=== PATIENT | male | born 1930 | race Caucasian/White ===

== ENCOUNTER → 2018-10-03 | Outpatient (CLI) | payer MEDICARE ==
[~2018-10-03] MED LIST: AMLO5TAB2 PO; ASP81TEC PO; CLOP75TA PO
--- NOTE | 2018-10-03 16:32 | Diagnostic Imaging Report ---
INDICATION: Non-Hodgkin's lymphoma. TECHNIQUE: Serum blood glucose level at time of injection was 96 mg/dL. Patient was administered 13.4 mCi F-18 FDG intravenously in the right antecubital location and PET imaging was performed from the top of the skull and mid thighs. Noncontrast CT was also performed for attenuation correction and anatomic correlation. COMPARISON: Patient's prior PET scan is not available for comparison. FINDINGS: There is symmetric activity throughout the brain. Soft tissues of the neck are unremarkable. Mild uptake in the right hilum is seen with SUV max of approximately 4.6. Minimal uptake in the region of the AP window is also noted with SUV max of approximately 3.1. No pulmonary parenchymal hypermetabolism is seen. There appears to be small bilateral pleural effusions with some atelectasis in both bases. Imaging through the abdomen does show a normal physiologic activity in the GI and tracts. No hypermetabolic abdominal or pelvic lymphadenopathy is seen. IMPRESSION: There is mild uptake in the mediastinum and right hilum, indeterminate. This is fairly low level. Continued followup is recommended. No other regions of hypermetabolism are identified. Dictated by: Dictated on workstation # [id number]
== END ==
LOC: RAD 09:21
PROVIDERS: ATTEND Internal Medicine Hematology & Oncology
DX: C83.38 Diffuse large B-cell lymphoma, lymph nodes of multiple sites (principal)

== ENCOUNTER → 2018-10-30 | Outpatient (CLI) | payer MEDICARE ==
[2018-10-30 10:44] LABS: HEMATOCRIT 36 % (40-54); HEMOGLOBIN 11.7 G/DL (13.3-17.7); MEAN CORPUSCULAR HEMOGLOBIN 36 PG (25-34); MEAN CORPUSCULAR VOLUME 108 FL (80-99); WHITE BLOOD COUNT 6.5 10^3/uL (4.3-11.0)
[2018-10-30 10:45] LABS: MEAN CORPUSCULAR HGB CONC 33 G/DL (32-36); MEAN PLATELET VOLUME 10.9 FL (7.4-10.4); NEUTROPHILS % (AUTO) 82 % (42-75); PLATELET COUNT 104 10^3/uL (130-400); RED CELL DISTRIBUTION WIDTH 15.3 % (10.0-14.5)
[2018-10-30 10:46] LABS: BASOPHILS % (AUTO) 1 % (0-10); EOSINOPHILS # (AUTO) 0.2 10^3/uL (0.0-0.3); EOSINOPHILS % (AUTO) 3 % (0-10); LYMPHOCYTES # (AUTO) 0.3 X 10^3 (1.0-4.0); LYMPHOCYTES % (AUTO) 5 % (12-44); MONOCYTES # (AUTO) 0.6 X 10^3 (0.0-1.0); MONOCYTES % (AUTO) 9 % (0-12); NEUTROPHILS # (AUTO) 5.4 X 10^3 (1.8-7.8)
[2018-10-30 11:30] LABS: BAND NEUTROPHILS 3 %; BASOPHILS % (MANUAL) 0 %; EOSINOPHILS % (MANUAL) 0 %; LYMPHOCYTES % (MANUAL) 2 %; MONOCYTES % (MANUAL) 11 %; NEUTROPHILS % (MANUAL) 84 %
[2018-10-30 11:31] LABS: ANISOCYTOSIS SLIGHT; ELLIPT/OVALOCYTES SLIGHT; POIKILOCYTOSIS SLIGHT
== END ==
LOC: LAB 08:41
PROVIDERS: ATTEND Internal Medicine Hematology & Oncology
DX: D64.81 Anemia due to antineoplastic chemotherapy (principal)
CPT/HCPCS: 36415; 85007; 85027

== ENCOUNTER → 2018-11-06 | Outpatient (CLI) | payer MEDICARE ==
[2018-11-06 09:11] LABS: HEMATOCRIT 35 % (40-54); HEMOGLOBIN 11.5 G/DL (13.3-17.7); LYMPHOCYTES % (AUTO) 13 % (12-44); MEAN CORPUSCULAR HEMOGLOBIN 36 PG (25-34); MEAN CORPUSCULAR HGB CONC 33 G/DL (32-36); MEAN CORPUSCULAR VOLUME 108 FL (80-99); MEAN PLATELET VOLUME 9.5 FL (7.4-10.4); NEUTROPHILS % (AUTO) 39 % (42-75); PLATELET COUNT 112 10^3/uL (130-400); RED CELL DISTRIBUTION WIDTH 15.1 % (10.0-14.5); WHITE BLOOD COUNT 2.7 10^3/uL (4.3-11.0)
[2018-11-06 09:12] LABS: BASOPHILS % (AUTO) 2 % (0-10); EOSINOPHILS # (AUTO) 0.5 10^3/uL (0.0-0.3); EOSINOPHILS % (AUTO) 20 % (0-10); LYMPHOCYTES # (AUTO) 0.4 X 10^3 (1.0-4.0); MONOCYTES # (AUTO) 0.7 X 10^3 (0.0-1.0); MONOCYTES % (AUTO) 26 % (0-12)
== END ==
LOC: LAB FS 08:30
PROVIDERS: ATTEND Internal Medicine Hematology & Oncology
DX: D64.81 Anemia due to antineoplastic chemotherapy (principal)
CPT/HCPCS: 36415; 85025

== ENCOUNTER 2018-11-13 11:59 | Outpatient (RCR) | payer MEDICARE ==
[2018-11-13 12:21] LABS: HEMATOCRIT 37 % (40-54); HEMOGLOBIN 12.3 G/DL (13.3-17.7); MEAN CORPUSCULAR HEMOGLOBIN 35 PG (25-34); MEAN CORPUSCULAR HGB CONC 33 G/DL (32-36); MEAN CORPUSCULAR VOLUME 107 FL (80-99); RED CELL DISTRIBUTION WIDTH 15.1 % (10.0-14.5); WHITE BLOOD COUNT 2.2 10^3/uL (4.3-11.0)
[2018-11-13 12:22] LABS: BASOPHILS % (AUTO) 1 % (0-10); EOSINOPHILS # (AUTO) 0.4 10^3/uL (0.0-0.3); EOSINOPHILS % (AUTO) 16 % (0-10); LYMPHOCYTES # (AUTO) 0.6 X 10^3 (1.0-4.0); LYMPHOCYTES % (AUTO) 27 % (12-44); MEAN PLATELET VOLUME 9.5 FL (7.4-10.4); MONOCYTES # (AUTO) 0.7 X 10^3 (0.0-1.0); MONOCYTES % (AUTO) 32 % (0-12); NEUTROPHILS # (AUTO) 0.5 X 10^3 (1.8-7.8); NEUTROPHILS % (AUTO) 23 % (42-75); PLATELET COUNT 137 10^3/uL (130-400)
== END 2019-02-11 | disposition home or self-care (01) ==
LOC: LAB FS 11:59
PROVIDERS: ATTEND Internal Medicine Hematology & Oncology
DX: D64.81 Anemia due to antineoplastic chemotherapy (principal)
CPT/HCPCS: 36415; 85025

== ENCOUNTER 2018-11-27 08:55 | Emergency (ER) | payer MEDICARE ==
[~2018-11-27] VITALS: Ht 177.8 cm; Wt 77.1 kg
--- OUTSIDE RECORDS SUMMARY | 2018-11-27 09:02 | XMS REPORT | Encounter Summary ---
Author Author [facility] Organization [facility] Address Unknown Phone Unavailable Care Team Providers Care Fuel Manager Name Role Phone Gamaliel Almanzar MD PCP Reason for Referral * MRI/CAT/PET Scan (Routine) Status Reason Specialty Diagnoses / Referred By Referred To Procedures Contact Contact Closed Diagnoses ZarcoAbiodun lam, Subdural PA-C hematoma, acute [address], (HCC) [address] [place], [place] rocedures [address] CT Head wo Phone: contrast [phone] Reason for Visit * MRI/CAT/PET Scan (Routine) Status Reason Specialty Diagnoses / Referred By Referred To Procedures Contact Contact Closed Diagnoses ZarcoAbiodun lam, Subdural PA-C hematoma, acute [address], (HCC) [address] [place], [place] rocedures [address] CT Head wo Phone: contrast [phone] Encounter Details Date Type Department Care Team Description 09/15/2018 [facility] [place] [facility] ZarcoAbiodun lam, PA-C Subdural hematoma, acute [facility]oint[facility], [facility] [address], [address] (HCC) [address] [place] [address] [address] [place] [address] [phone] Social History Tobacco Use Types Packs/Day Years Used Date Never Smoker Smokeless Tobacco: Never Used Alcohol Use Drinks/Week oz/Week Comments No Sex Assigned at Date Recorded Not on file as of this encounter Plan of Treatment Not on fileas of this encounter Procedures Procedure Name Priority Date/Time Associated Diagnosis Comments CT HEAD WO CONTRAST Routine 09/15/2018 Subdural hematoma, acute Results for this 12:23 PM RIBBON CLEANER (HCC) procedure are in the results section. 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 No new hemorrhage. Mild/moderate generalized volume loss. Mild chronic small vessel ischemic disease. READING SITE: [facility]. ATTESTATION STATEMENT: The Staff Radiologist has personally reviewed the images and dictated, reviewed, or edited the final report. Narrative Performed At Patient: COLBY MACIAS Sex#:M # 1930 [place]#:[id number] Location:[facility] CT Procedure Requested:[id number] CT HEAD WO CONTRAST Reason for Exam:Subdural hematoma, acute (HCC) Exam Ordered: Exam Date/Time: Begin exam date/time: CT HEAD WO CONTRAST Date: 09/15/2018 12:23 PM Clinical Indication: Subdural hematoma, acute (HCC) . Subsequent encounter. Comparison: August 16, 2018. Technique:5 mm axial tomographic images were obtained of the head without contrast. These were viewed on brain and bone windows. 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 No new hemorrhage. The ramírez-white matter junction is normal. Mild nonspecific periventricular hypoattenuation, most commonly seen with chronic small vessel ischemic disease. Calcified atherosclerosis of the bilateral cavernous and paraclinoid internal carotid arteries and intracranial vertebral arteries. Mild/moderate generalized volume loss in concordance with symmetrical prominence of the ventricles and sulci. The subarachnoid cisterns are patent. The visualized paranasal sinuses are clear. Right zachariah bullosa. The visualized portions of the orbits and globes are normal. The mastoid air cells are clear. The toll service observer topogram shows no lytic lesion or fracture. Procedure Note Interface, Rad Results In - 09/15/2018 4:04 PM RIBBON CLEANER Patient: KAYLEE MACIAS Sex#: M # 1930 [place]#: [id number] Location: [facility] CT Procedure Requested: [id number] CT HEAD WO CONTRAST Reason for Exam: Subdural hematoma, acute (HCC) Exam Ordered: 09/15/2018 1158 Exam Date/Time: 09/15/2018 1223 Begin exam date/time: 09/15/[address] HEAD WO CONTRAST Date: 09/15/2018 12:23 PM Clinical Indication: Subdural hematoma, acute (HCC) . Subsequent encounter. Comparison: August 16, 2018. Technique: 5 mm axial tomographic images were obtained of the head without contrast. These were viewed on brain and bone windows. 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 No new hemorrhage. The ramírez-white matter junction is normal. Mild nonspecific periventricular hypoattenuation, most commonly seen with chronic small vessel ischemic disease. Calcified atherosclerosis of the bilateral cavernous and paraclinoid internal carotid arteries and intracranial vertebral arteries. Mild/moderate generalized volume loss in concordance with symmetrical prominence of the ventricles and sulci. The subarachnoid cisterns are patent. The visualized paranasal sinuses are clear. Right zachariah bullosa. The visualized portions of the orbits and globes are normal. The mastoid air cells are clear. The toll service observer topogram shows no lytic lesion or fracture. 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 No new hemorrhage. Mild/moderate generalized volume loss. Mild chronic small vessel ischemic disease. READING SITE: [facility]. ATTESTATION STATEMENT: The Staff Radiologist has personally reviewed the images and dictated, reviewed, or edited the final report. Performing Organization Address City/State/Zipcode Phone Number [email or web address] in this encounter Visit Diagnoses Diagnosis Subdural hematoma, acute (HCC)
--- OUTSIDE RECORDS SUMMARY | 2018-11-27 09:02 | XMS REPORT | Clinical Summary ---
Author Author [facility] Organization [facility] Address Unknown Phone Unavailable Care Team Providers Care Wellness Trainer Name Role Phone Gamaliel Almanzar MD PCP Allergies Active Allergy Reactions Severity Noted Date Comments Doxycycline Hives Medium 07/08/2015 Habdzyx-Pgv-Mls Reductase Myalgia Medium 07/08/2015 Inhibitors Current Medications Prescription Sig. Disp. Refills Start End Date Status Date polycarbophil (FIBERCON) Take one daily 30 0 05/16/20 Active 625 mg tablet 12 multivitamin (MULTIPLE take 1 tablet by oral 30 0 05/16/20 Active VITAMINS) per tablet route every day with 12 food acetaminophen (TYLENOL) Take 2 tablets (650 mg 08/22/20 Active 325 MG tablet total) by mouth every 4 18 (four) hours as needed. acyclovir (ZOVIRAX) 400 Take 1 tablet (400 mg 08/22/20 Active MG tabletIndications: total) by mouth 2 (two) 18 CHRONIC SUPPRESSIVE times a day. TREATMENT OR PROPHYLAXIS allopurinol (ZYLOPRIM) Take 1 tablet (300 mg 08/22/20 Active 300 MG tabletIndications: total) by mouth daily. 18 Increased Uric Acid due to Cancer Chemotherapy loperamide (IMODIUM) 2 mg Take 1 capsule (2 mg 08/22/20 Active capsuleIndications: total) by mouth every 6 18 Diarrhea caused by (six) hours as needed for Chemotherapy diarrhea. metoprolol succinate Take 0.5 tablets (12.5 mg 30 tablet 1 08/23/20 Active (TOPROL-XL) 25 MG 24 hr total) by mouth daily. 18 tabletIndications: for control of heart rate related to non sustained ventricular tachycardia sulfamethoxazole-trimetho Take 1 tablet (160 mg of 08/23/20 Active prim (BACTRIM DS) 800-160 trimethoprim total) by 18 mg per tabletIndications: mouth every Tuesday, CHRONIC SUPPRESSIVE Tuesday and Tuesday. TREATMENT OR PROPHYLAXIS tamsulosin (FLOMAX) 0.4 Take 1 capsule (0.4 mg 08/22/20 Active mg capIndications: total) by mouth daily. 18 enlarged prostate with urination problem potassium chloride Take 1 packet by mouth Active (KLOR-CON) 25 mEq packet daily. furosemide (LASIX) 40 MG TAKE 1 TABLET BY MOUTH 90 tablet 0 11/28/19 Active tablet DAILY NEEDED FOR LEG 19 SWELLING furosemide (LASIX) 40 MG Take 40 mg by mouth 08/18/20 11/28/19 Discontin tablet daily. 18 19 ued Active Problems Problem Noted Date NSVT (nonsustained ventricular tachycardia) (HCC) 08/22/2018 Overview: On low dose beta william L ast Assessment & Plan: Has ventricular ectopy including AIVR, rate related BBB. Also has had bradycardia after low dose BB (Coreg 3.125 mg x 1) BB discontinued Overnight no significant bradycardia/ tachy arrhythmia. 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 Update with [facility] 08/21: 2/2 CN darby finalized 08/18/18 -Repeated BC x 2 08/18 NGTD -ID consult appreciated: will DC Zosyn per ID note; may switch to daptomycin in am for DC / outpatient treatment in [facility]? Traumatic subdural hematoma (HCC) 08/16/2018 Last Assessment & Plan: S/p mechanical fall NS consulted and f/u CT head normal. Hold DAPT and f/u in NS clinic in 4wks with repeat scan Trauma evaluated and has signed off Antiplatelet or antithrombotic long-term use 08/16/2018 Bicytopenia 08/16/2018 Last Assessment & Plan: Macrocytic anemia, thrombocytopenia - last chemotherapy ~ 12 d ago Thrombocytopenia (HCC) 08/16/2018 Last Assessment & Plan: 119 > 100 Unclear current baseline in setting of chemo and DAPT - DAPT therapy and DVT ppx on hold - monitor trends Rhinovirus infection 08/16/2018 Last Assessment & Plan: May be confounding finding versus primary infection Will cover for bacterial process given initial elevated WBC/ immunocompromised state or per ID recommendations Subarachnoid hemorrhage following injury, no loss of consciousness (HCC) 01/2018 Last Assessment & Plan: See plan above Fall 08/16/2018 Contusion of right shoulder 08/16/2018 Last Assessment & Plan: With xray evidence of chronic rotator cuff tear, no acute findings Pt confirms known tear Atelectasis 08/16/2018 Benign prostatic hyperplasia 08/16/2016 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 S/P radiation/chemotherapy. L ast Assessment & Plan: Last chemo approx 10d ago, on cycle every [address] Irving Templeton at [facility] in [place] On home prophylactic acyclovir BID and allopurinol Held 08/18's methotrexate dose H/O deep venous thrombosis 10/02/2012 S/P coronary artery stent placement 04/29/2011 Overview: dRCA. 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 No h/o aspiraton On empiric Zosyn (08/16) and CLERICAL ADMINISTRATOR Bactrim prophylaxis Some sinus disease w/o opacification to my review on OSH CT Completed 5d Zosyn;Procal ).32 >> 0.21 On vancomycin for bacteremia -ID consulting Encounters Date Type Specialty Care Team Description 2018 Refill Cardiology Yovani Kemp MD Other 09/15/2018 Office Visit Neurosurgery Abiodun Zarco PA-C Subarachnoid hemorrhage following injury, no loss of consciousness, subsequent encounter (Primary Dx) 09/15/2018 Imaging Radiology Abiodun Zarco PA-C Subdural hematoma, acute Appointment ([facility]) 08/16/2018 Procedure Pass Radiology from Last 3 Months Family History Medical History Relation Name Comments Heart attack Brother Cancer Father Heart attack Mother Heart attack Sister Relation Name Status Comments Brother Father (Age 74 ) Mother (Age 74 ) Sister Social History Tobacco Use Types Packs/Day Years Used Date Never Smoker Smokeless Tobacco: Never Used Alcohol Use Drinks/Week oz/Week Comments No Sex Assigned at Date Recorded Not on file Last Filed Vital Signs Vital Sign Reading Time Taken Blood Pressure 119/72 09/15/2018 12:58 PM HONE OPERATOR Pulse 78 09/15/2018 12:58 PM HONE OPERATOR Temperature 36.3 C (97.3 F) 08/22/2018 8:27 AM HONE OPERATOR Respiratory Rate 16 08/22/2018 8:27 AM HONE OPERATOR Oxygen Saturation 94% 08/22/2018 8:27 AM HONE OPERATOR Inhaled Oxygen - - Concentration Weight 81.4 kg (179 lb 6.4 oz) 09/15/2018 12:58 PM HONE OPERATOR Height 177.8 cm (5' 10") 08/16/2018 4:00 AM HONE OPERATOR Body Mass Index 25.74 09/15/2018 12:58 PM HONE OPERATOR Plan of Treatment Health Maintenance Due Date Last Done Comments Medicare Annual Wellness 1930 Td # 1930 Zoster Vaccine# (1 of 2) 11/19/1979 Pneumococcal Immunization 1994 65+ High/Highest Risk# (1 of 2 - PCV13) Influenza Vaccine (Season 07/13/2019 07/20/2012 Ended) Fall Risk Assessment # 08/22/2019 08/22/2018 Depression Screening 09/15/2019 09/15/2018 PHQ-9 # Procedures Procedure Name Priority Date/Time Associated Diagnosis Comments CT HEAD WO CONTRAST Routine 09/15/2018 Subdural hematoma, acute Results for this 12:23 PM HONE OPERATOR (HCC) procedure are in the results section. from Last 3 Months Results * CT Head wo contrast (09/15/2018 12:23 PM) Impressions Performed At Impression: [facility] Significantly decreased left frontal subdural hematoma with chronic subdural hematoma measuring up to 3 mm maximal thickness, previously 6 mm. No new hemorrhage. Mild/moderate generalized volume loss. Mild chronic small vessel ischemic disease. READING SITE: [facility]. ATTESTATION STATEMENT: The Staff Radiologist has personally reviewed the images and dictated, reviewed, or edited the final report. Narrative Performed At Patient: COLBY MACIAS Sex#:M # 1930 [place]#:[id number] Location:[facility] CT Procedure Requested:[id number] CT HEAD WO CONTRAST Reason for Exam:Subdural [...] The mastoid air cells are clear. The clinical support nurse topogram shows no lytic lesion or fracture. Procedure Note Interface, Rad Results In - 09/15/2018 4:04 PM HONE OPERATOR Patient: KAYLEE MACIAS Sex#: M # 1930 [place]#: [id number] Location: [facility] CT Procedure Requested: [id number] CT HEAD WO CONTRAST Reason for Exam: [...] The mastoid air cells are clear. The clinical support nurse topogram shows no lytic lesion or fracture. 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 No new hemorrhage. Mild/moderate generalized volume loss. Mild chronic small vessel ischemic disease. READING SITE: [facility]. ATTESTATION STATEMENT: The Staff Radiologist has personally reviewed the images and dictated, reviewed, or edited the final report. Performing Organization Address City/State/Zipcode Phone Number [email or web address] from Last 3 Months
--- OUTSIDE RECORDS SUMMARY | 2018-11-27 09:02 | XMS REPORT | Encounter Summary ---
Author Author [facility] Organization [facility] Address Unknown Phone Unavailable Care Team Providers Care Industrial Plant Custodian Name Role Phone Gamaliel Almanzar MD PCP Reason for Visit * Reason Comments Hospital Follow-up Encounter Details Date Type Department Care Team Description 09/15/2018 Office Visit [facility] Abiodun Zarco PA-C Subarachnoid hemorrhage & Spine Surgery [address], [place] [address] following injury, no loss [address] [facility] [address], [address] [place] [address] of consciousness, [place] [address] subsequent encounter [phone] (Primary Dx) Social History Tobacco Use Types Packs/Day Years Used Date Never Smoker Smokeless Tobacco: Never Used Alcohol Use Drinks/Week oz/Week Comments No Sex Assigned at Date Recorded Not on file as of this encounter Last Filed Vital Signs Vital Sign Reading Time Taken Blood Pressure 119/72 09/15/2018 12:58 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 NEUROSURGERY CLINIC SUBSEQUENT VISIT NOTE 09/15/2018 NAME: Hans Miller : 1930 PRIMARY CARE PROVIDER: Gamaliel Almanzar MD REFERRING PROVIDER: No ref. provider found VISIT DATE: 09/15/2018 PATIENT SUMMARY: He is an 87 y.o. year-old Male with PMH significant for NHL ( currently receiving chemotherapy), h/o DVT, HTN, CAD s/p PCI (2010?) and h/o TIA 3-4 yrs ago who was on ASA 81 and Plavix who was transferred from OSH for further eval for acute traumatic SDH/SAH on 08/16/18. Pt states that he has had a productive cough for several weeks of yellowish phlegm. He says their power went out overnight 08/12 and he was ambulating to the restroom with his walker when he tripped and got tangled up in it with no LOC. He thinks he hit his head. He says ever since he has been having a slight frontal and suboccipital DOWNS. Yesterday evening he spiked a fever which prompted them to see his oncologist who recommended an ED eval. A CTH was obtained due to his recent fall which revealed an acute left SDH, measuring approx 6mm at its thickest portion with a small amount of adjacent left frontal tSAH. No significant compression. Sulcal/gyral pattern well maintained. No shift. No obvious skull fxs. Repeat CTH was stable. CT Csp revealed diffuse degenerative changes with reversal of his lordosis with slight anterolisthesis of C7 on T1. No acute fxs/dislocations. CXR revealed blunting of the left costophrenic angle. He was on zosyn for presumed PNA. Repeat CTH was stable. He was counseled to hold his ASA and plavix until neurosurgical follow up. HISTORY OF PRESENT ILLNESS: I am seeing Hans Miller for a neurosurgical follow- up today. It has been approx 4 weeks in which he had a mechanical fall, sustaining a small left acute SDH with a scant amount of adjacent left frontal tSAH. Repeat imaging was stable. He has been holding his ASA and plavix. He denies any complaints currently. He goes to work daily at his [employer] business. He has occasional DOWNS but denies any N/V, vision changes, weakness, numbness/tingling, shortness of breath or chest pain. His city treasurer is Dr. Kemp with [facility]. Repeat CTH today, 09/15/18, revealed complete resolution of the previously seen left convexity SDH and left frontal tSAH. There are no acute findings. Diffuse cerebral and cortical atrophy present with stable expected ventriculomegaly due to the amount of atrophy that is present. No acute findings. The final radiology read was c/w possible residual L frontal SDH near the vertex but it appears to be more c/w expected layering of the images. There is no obvious subdural fluid collection present. ALLERGIES: Allergies Allergen Reactions Doxycycline Hives Lssxoml-Ang-Egk Reductase Inhibitors Myalgia HOME MEDICATIONS: Medication List Accurate as of 09/15/18 12:49 PM. If you have any questions, ask your nurse or doctor. CONTINUE taking these medications acetaminophen 325 MG tablet Commonly known as: TYLENOL 650 mg, Oral, Every 4 hours PRN acyclovir 400 MG tablet Commonly known as: ZOVIRAX 400 mg, Oral, 2 times daily allopurinol 300 MG tablet Commonly known as: ZYLOPRIM 300 mg, Oral, Daily FIBERCON 625 mg tablet Generic drug: polycarbophil Take one daily loperamide 2 mg capsule Commonly known as: IMODIUM 2 mg, Oral, Every 6 hours PRN metoprolol succinate 25 MG 24 hr tablet Commonly known as: TOPROL-XL 12.5 mg, Oral, Daily MULTIPLE VITAMINS per tablet Generic drug: multivitamin take 1 tablet by oral route every day with food sulfamethoxazole-trimethoprim 800-160 mg per tablet Commonly known as: BACTRIM DS 1 tablet, Oral, Every Mon-Wed-Fri tamsulosin 0.4 mg Cap Commonly known as: FLOMAX 0.4 mg, Oral, Daily REVIEW OF SYSTEMS: A complete ROS was obtained and pertinent for what is listed in HPI. PHYSICAL EXAM: There were no vitals filed for this visit. Awake, alert No acute distress RRR, no m/r/g CTAB Extremities warm, well perfused Oriented to person, place and time PERRL, 3mm, briskly reactive bilaterally EOMs intact Facial sensation intact Face symmetric Tongue midline Shoulder shrug strong 5/5 strength throughout No pronator drift Sensation intact LABORATORY: ASSESSMENT/PLAN: Active Problems: Mr. Miller is an 87y M with PMH significant for NHL (currently receiving chemotherapy), h/o DVT, HTN, CAD s/p PCI (2010?) and h/o TIA 3-4 yrs ago (had an episode of speech difficulties) who was on ASA 81 and Plavix who was transferred from OSH for further eval for acute traumatic left frontal SDH/SAH after a mechanical fall on 08/12/18. He was found to have a PNA which was treated. Repeat imaging was stable. He presents today for follow up. Imaging today revealed complete resolution of the previously seen left convexity SDH and left frontal tSAH. There are no acute findings. Diffuse cerebral and cortical atrophy present with stable expected ventriculomegaly due to the amount of atrophy that is present. The final radiology read was c/w possible residual L frontal SDH near the vertex but it appears to be more c/w expected layering of the images. There is no obvious subdural fluid collection present. At this time, it is ok for Mr. Miller to resume his ASA which is what I recommended him to do. I do want him to follow up with cardiology to determine the need for Plavix as his PCI was several years ago. If it is necessary for him to restart his Plavix then at this time it is OK with [facility] to do so. He does not need any further imaging or neurosurgical follow up at this time. They will call with any future questions or concerns. Abiodun Zarco DC, [facility], PA-C [facility] Neuro[facility] [place] [address] [place] [place] Pager: [phone] After 5 p.m. or on weekends please contact [phone] for appropriate provider in this encounter Plan of Treatment Not on fileas of this encounter Visit Diagnoses Diagnosis Subarachnoid hemorrhage following injury, no loss of consciousness, subsequent encounter - Primary
--- OUTSIDE RECORDS SUMMARY | 2018-11-27 09:02 | XMS REPORT | Encounter Summary ---
Author Author [facility] Organization [facility] Address Unknown Phone Unavailable Care Team Providers Care Electrical Power Engineer Name Role Phone Gamaliel Almanzar MD PCP Encounter Details Date Type Department Care Team Description 08/16/2018 Procedure [facility], [address] [place] [address] Social History Tobacco Use Types Packs/Day Years Used Date Never Smoker Smokeless Tobacco: Never Used Alcohol Use Drinks/Week oz/Week Comments No Sex Assigned at Date Recorded Not on file as of this encounter Plan of Treatment Not on fileas of this encounter Visit Diagnoses Not on filein this encounter
--- OUTSIDE RECORDS SUMMARY | 2018-11-27 09:02 | XMS REPORT | Clinical Summary ---
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
--- OUTSIDE RECORDS SUMMARY | 2018-11-27 09:02 | XMS REPORT | Encounter Summary ---
Author Author [facility] Organization [facility] Address Unknown Phone Unavailable Care Team Providers Care Pest Control Pilot Name Role Phone Gamaliel Almanzar MD PCP Reason for Visit * Reason Comments Other Encounter Details Date Type Department Care Team Description 2018 Refill [facility] Yovani Kemp MD Other Cardiovascular [address] [facility] [address] [place] [address] [address] [place] [address] [phone] Social History Tobacco Use Types Packs/Day Years Used Date Never Smoker Smokeless Tobacco: Never Used Alcohol Use Drinks/Week oz/Week Comments No Sex Assigned at Date Recorded Not on file as of this encounter Miscellaneous Notes * Telephone Encounter - Dolly Cedillo RN - 11/27/2018 8:24 AM CDT Last OV w/ [facility] 10/20/17. Pt was to f/u with [facility] on a PRN basis. Will send a 90 day supply w/ 0 refills. Contacted pharmacy with a request to send future refills to pt's PCP, as he his following with [facility] on a PRN basis. in this encounter Plan of Treatment Not on fileas of this encounter Visit Diagnoses Not on filein this encounter
--- OUTSIDE RECORDS SUMMARY | 2018-11-27 09:02 | XMS REPORT | Continuity of Care Document ---
Author Author [facility] Organization [facility] Address Unknown Phone Unavailable Allergies Active Description Code Type Severity Reaction Onset Reported/Identified Relationship to Patient Clinical Status Yes NO KNOWN DRUG ALLERGIES UNKNOWN NO KNOWN DRUG ALLERG Yes No Known Drug Allergies [id number] Drug Allergy Unknown N/A 02/05/2010 Medications Medication Packaging Start Date Stop Date Route Dosage Sig IBUPROFEN TAB 400 MG (MOTRIN) MG 10/05/2018 PRN Q4H ACETAMINOPHEN ORAL TABLET 325mg(Tylenol) MG 09/28/2018 10/28/2018 PRN EVERY 4 Hour NORMAL SALINE 1000CC IV BAG INJ 0.9 % (NS 1000CC IV BAG) ml 09/28/2018 10/05/2018 CONTINUOUSEVERY 0 Hour Docusate sodium 100mg oral capsule (COLACE) 09/28/2018 10/28/2018 PRN BID LACTULOSE SYRUP LIQ 20 GM/30CC (CHRONULAC SYRUP) GM 09/28/2018 10/28/2018 BID&0800,2000 ACETAMINOPHEN ORAL TABLET 325mg(Tylenol) MG 09/28/2018 10/28/2018 PRN Q6H MELATONIN TAB 3 MG (MELATONIN) MG 09/28/2018 10/04/2018 PRN QHS Meropenem-0.9% sodium chloride IV piggyback 500mg MG 09/28/2018 10/05/2018 Q6H&0300,0900,1500,2100 ACETAMINOPHEN SUPPOS SUP 650 MG (TYLENOL) MG 09/28/2018 10/05/2018 PRN Q4H ONDANSETRON VIAL INJ 4 MG/2CC (ZOFRAN 2CC VIAL) MG 09/28/2018 10/05/2018 PRN Q4H ALUM/MAG/SIMETH 30CC LIQ (MYLANTA PLUS) cc 09/28/2018 10/08/2018 PRN Q4H ALPRAZOLAM TAB 0.25 MG (XANAX) MG 09/28/2018 10/08/2018 PRN Q6H NORMAL SALINE 50CC IV BAG INJ (NS 50CC MINI-BAG) ml 09/28/2018 10/05/2018 Q6H&0300,0900,1500,2100 CLONIDINE TAB 0.1 MG (CATAPRES) MG 09/28/2018 10/05/2018 PRN Q6H CALCIUM CARBONATE TAB 500 MG (TUMS) MG 09/28/2018 10/05/2018 PRN Q6H DIPHENHYDRAMINE CAP 25 MG (BENADRYL) MG 09/28/2018 10/05/2018 PRN Q6H HYDROCODONE/APAP 5MG/325MG TAB 5 MG/325MG (ASHLIE-TAB 5/325) TAB 09/28/2018 10/08/2018 PRN Q6H IBUPROFEN TAB 400 MG (MOTRIN) MG 09/29/2018 PRN ONCE Meropenem-0.9% sodium chloride IV piggyback 500mg MG 09/29/2018 10/05/2018 Q6H&0600,1200,1800,2359 Docusate sodium 100mg oral capsule (COLACE) 09/29/2018 10/28/2018 BID&0800,2000 ACYCLOVIR CAP 200 MG (ZOVIRAX) MG 09/29/2018 10/08/2018 BID&0800,2000 NORMAL SALINE 250CC IV BAG INJ 0.9 % (NS 250CC IV BAG) ml 09/29/2018 10/05/2018 Q12H&0800,2000 TAMSULOSIN CAP 0.4 MG (FLOMAX) MG 09/29/2018 10/05/2018 Daily&0900 BISACODYL TAB 5 MG (DULCOLAX) MG 10/05/2018 PRN Daily FUROSEMIDE TAB 40 MG (LASIX) MG 10/06/2018 PRN Daily POLYETHYLENE GLYCOL POWDER UD PWD (MIRALAX 17GM UNIT DOSE PAKS) gm 09/29/2018 10/05/2018 Daily&0900 BISACODYL SUPPOS 10 MG (DULCOLAX SUPPOS) MG 09/29/2018 10/05/2018 PRN Daily NICOTINE PATCH PAT 21 MG (NICODERM) MG 09/29/2018 10/05/2018 Daily&0900 NICOTINE PATCH PAT 14 MG (NICODERM) MG 09/29/2018 10/05/2018 Daily&0900 MILK OF ISA HANKSQ ml 09/29/2018 10/28/2018 PRN Daily Meropenem-0.9% sodium chloride IV piggyback 500mg MG 09/29/2018 10/09/2018 Q8H&0600,1400,2200 FUROSEMIDE VIAL INJ 20 MG (LASIX VIAL) MG 09/29/2018 09/29/2018 ONCE&1739 LOPERAMIDE CAP 2 MG (IMMODIUM) MG 09/29/2018 10/06/2018 PRN QID POTASSIUM CHLORIDE TAB 10 MEQ (K-DUR) MEQ 09/30/2018 10/29/2018 BID&0800,2000 FUROSEMIDE VIAL INJ 20 MG (LASIX VIAL) MG 09/30/2018 10/06/2018 Daily&0900 LACTOBACILLUS BULGARIS TAB (LACTINEX BULGARIS) tab 09/30/2018 10/10/2018 QID&0800,1200,1700,2200 POTASSIUM CHLORIDE TAB 10 MEQ (K-DUR) MEQ 10/01/2018 10/31/2018 TID&0800,1200,1400,2000 Problems Date Dx Coded Attending Type Code Diagnosis Diagnosed By 09/18/2014 SANJUANITA SADLER MD Ot 202.80 12/05/2014 SANJUANITA SADLER MD Ot 202.80 12/10/2014 SANJUANITA SADLER MD Ot 202.80 12/15/2014 SANJUANITA SADLER MD Ot 202.80 OTH LYMPHOMAS EXTRANODAL SOLID ORGAN U 12/15/2014 SANJUANITA SADLER MD Ot V58.0 ENCOUNTER FOR RADIOTHERAPY 09/28/2018 SANJUANITA SADLER MD Ot 202.80 OTH LYMPHOMAS EXTRANODAL SOLID ORGAN U 10/02/2018 Nunu Rivers W 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, UNSPECIFIED SITE, EXTRANODAL AND SOLID ORGAN SITES 10/02/2018 Nunu Rivers 276.51 DEHYDRATION 10/02/2018 Nunu Rivers 288.00 10/02/2018 Nunu Rivers 600.20 BENIGN LOCALIZED HYPERPLASIA OF PROSTATE WITHOUT URINARY OBSTRUCTION AND OTHER LOWER URINARY TRACT SYMPTOMS (LUTS) 10/02/2018 Nunu Rivers 780.61 10/02/2018 Nunu Rivers 782.3 EDEMA 10/02/2018 Nunu Rivers 785.0 TACHYCARDIA, UNSPECIFIED 10/02/2018 Lauren Riversi W C85.90 NON-HODGKIN LYMPHOMA, UNSPECIFIED, UNSPECIFIED SITE 10/02/2018 RiversLaureni W D70.9 NEUTROPENIA, UNSPECIFIED 10/02/2018 RiversLaureni W E86.0 DEHYDRATION 10/02/2018 RiversLaureni W N40.0 BENIGN PROSTATIC HYPERPLASIA WITHOUT LOWER URINRY TRACT SYMP 10/02/2018 RiversLaurensoumya Esteves R00.0 TACHYCARDIA, UNSPECIFIED 10/02/2018 RiversLaureni W R50.81 FEVER PRESENTING WITH CONDITIONS CLASSIFIED ELSEWHERE 10/02/2018 RiversLaurensoumya Esteves R60.0 LOCALIZED EDEMA 10/04/2018 DAVID LEACH, SORAIDA V Ot C83.38 DIFFUSE LARGE B-CELL LYMPHOMA, 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/2018 D64.81 Anemia due to chemotherapy 10/25/2018 DAVID LEACH, SORAIDA V Ot C83.38 DIFFUSE LARGE B-CELL LYMPHOMA, LYMPH NOD 10/30/2018 DAVID LEACH, SORAIDA V Ot C83.38 DIFFUSE LARGE B-CELL LYMPHOMA, LYMPH NOD 11/01/2018 DAVID LEACH, SORAIDA V Ot D64.81 ANEMIA DUE TO ANTINEOPLASTIC CHEMOTHERAP 11/03/2018 DAVID LEACH, SORAIDA V Ot C83.38 DIFFUSE LARGE B-CELL LYMPHOMA, LYMPH NOD 11/13/2018 DOROTEO LEACH, SANJUANITA E Ot 202.80 OTH LYMPHOMAS EXTRANODAL SOLID ORGAN U 11/20/2018 DAVID LEACH, SORAIDA V Ot D64.81 ANEMIA DUE TO ANTINEOPLASTIC CHEMOTHERAP 11/24/2018 DAVID LEACH, SORAIDA V Ot D64.81 ANEMIA DUE TO ANTINEOPLASTIC CHEMOTHERAP Procedures There is no data. Results Test Result Range Immunoglobulin G, Qn, Serum - 09/29/18 05:28 Immunoglobulin G, Qn, Serum 191 mg/dL 700-1600 Comprehensive Metabolic Panel - 09/29/18 05:28 Albumin 2.9 g/dL 3.6-5.1 ALP 69 U/L 35-130 ALT 12 U/L 6-45 Anion Gap 10 6-14 AST 40 U/L 2-40 BUN 14 mg/dL 5-25 Calcium 7.5 mg/dL 8.3-10.4 Chloride 108 mmol/L 95-114 CO2 24 mEq/L 22-33 Creat 0.82 mg/dL 0.50-1.50 eGFR 88 mL/min/1.73m2 >59 Globulin 0.8 g/dL 2.3-3.5 Glucose 87 mg/dL 70-110 Osmo 285 280-295 Potassium 3.6 mmol/L 3.5-5.3 Sodium 138 mmol/L 134-148 TBil 0.5 mg/dL 0.2-1.2 TP 3.7 Result Verified by Repeat Analysis g/dL 6.0-8.3 Immunoglobulin G, Qn, Serum - 09/29/18 05:28 IMMUNOGLOBULIN G, QN, SERUM 191 MG/DL 700-1600 Vancomycin Trough - 09/30/18 06:59 Vanco Trough 14.8 ug/mL 10.0-20.0 Comprehensive Metabolic Panel - 09/30/18 07:28 Albumin 2.9 g/dL 3.6-5.1 ALP 69 U/L 35-130 ALT 13 U/L 6-45 Anion Gap 11 6-14 AST 34 U/L 2-40 BUN 12 mg/dL 5-25 Calcium 7.5 mg/dL 8.3-10.4 Chloride 108 mmol/L 95-114 CO2 23 mEq/L 22-33 Creat 0.75 mg/dL 0.50-1.50 eGFR 98 mL/min/1.73m2 >59 Globulin 0.9 g/dL 2.3-3.5 Glucose 84 mg/dL 70-110 Osmo 286 280-295 Potassium 3.2 mmol/L 3.5-5.3 Sodium 139 mmol/L 134-148 TBil 0.5 mg/dL 0.2-1.2 TP 3.8 g/dL 6.0-8.3 Comprehensive Metabolic Panel - 10/01/18 05:30 Albumin 2.9 g/dL 3.6-5.1 ALP 63 U/L 35-130 ALT 13 U/L 6-45 Anion Gap 9 6-14 AST 27 U/L 2-40 BUN 13 mg/dL 5-25 Calcium 7.6 mg/dL 8.3-10.4 Chloride 109 mmol/L 95-114 CO2 24 mEq/L 22-33 Creat 0.72 mg/dL 0.50-1.50 eGFR 103 mL/min/1.73m2 >59 Globulin 0.8 g/dL 2.3-3.5 Glucose 82 mg/dL 70-110 Osmo 286 280-295 Potassium 3.4 mmol/L 3.5-5.3 Sodium 139 mmol/L 134-148 TBil 0.5 mg/dL 0.2-1.2 TP 3.7 g/dL 6.0-8.3 Vancomycin Trough - 10/01/18 05:30 Vanco Trough 17.7 ug/mL 10.0-20.0 Comprehensive Metabolic Panel - 10/02/18 04:50 Albumin 2.9 g/dL 3.6-5.1 ALP 61 U/L 35-130 ALT 13 U/L 6-45 Anion Gap 11 6-14 AST 24 U/L 2-40 BUN 15 mg/dL 5-25 Calcium 7.7 mg/dL 8.3-10.4 Chloride 108 mmol/L 95-114 CO2 26 mEq/L 22-33 Creat 0.77 mg/dL 0.50-1.50 eGFR 95 mL/min/1.73m2 >59 Globulin 0.8 g/dL 2.3-3.5 Glucose 81 mg/dL 70-110 Osmo 291 280-295 Potassium 3.6 mmol/L 3.5-5.3 Sodium 141 mmol/L 134-148 TBil 0.5 mg/dL 0.2-1.2 TP 3.7 g/dL 6.0-8.3 Vancomycin Trough - 10/02/18 04:50 Vanco Trough 21.7 ug/mL 10.0-20.0 CBC with Auto Diff - 10/23/18 09:16 Baso% 0.10 % 0.00-2.50 Eos 0.0 K/uL 0.0-0.7 Eos% 0.1 % 0.0-7.0 Hct 39.5 % 42.0-52.0 Hgb 12.7 g/dL 14.0-17.0 Lym 0.36 K/uL 0.60-3.40 Lym% 2.3 % 10.0-50.0 MCH 35.4 pg 27.0-31.2 MCHC 32.2 g/dL 32.0-36.0 MCV 110.0 fL 80.0-97.0 Blair% 5.6 % 0.0-12.0 MPV 10.8 fL 7.4-10.0 John% 91.9 % 37.0-80.0 Plt 150 K/uL 150-400 RBC 3.59 M/uL 4.20-5.40 RDW 15.7 % 11.6-14.8 WBC 15.32 K/uL 5.00-10.00 John 14.07 K/uL 2.00-6.90 Blair 0.9 K/uL 0.0-0.9 Baso 0.0 K/uL 0.0-0.2 Complete blood count (CBC) with automated white blood cell (WBC) differential - 10/30/18 09:22 Blood leukocytes automated count (number/volume) 6.5 10*3/uL 4.3-11.0 Blood erythrocytes automated count (number/volume) 3.26 10*6/uL 4.35-5.85 Venous blood hemoglobin measurement (mass/volume) 11.7 g/dL 13.3-17.7 Blood hematocrit (volume fraction) 36 % 40-54 Automated erythrocyte mean corpuscular volume 108 [foz_us] 80-99 Automated erythrocyte mean corpuscular hemoglobin (mass per erythrocyte) 36 pg 25-34 Automated erythrocyte mean corpuscular hemoglobin concentration measurement ( mass/volume) 33 g/dL 32-36 Automated erythrocyte distribution width ratio 15.3 % 10.0-14.5 Automated blood platelet count (count/volume) 104 10*3/uL 130-400 Automated blood platelet mean volume measurement 10.9 [foz_us] 7.4-10.4 Automated blood neutrophils/100 leukocytes 82 % 42-75 Automated blood lymphocytes/100 leukocytes 5 % 12-44 Blood monocytes/100 leukocytes 9 % 0-12 Automated blood eosinophils/100 leukocytes 3 % 0-10 Automated blood basophils/100 leukocytes 1 % 0-10 Blood neutrophils automated count (number/volume) 5.4 10*3 1.8-7.8 Blood lymphocytes automated count (number/volume) 0.3 10*3 1.0-4.0 Blood monocytes automated count (number/volume) 0.6 10*3 0.0-1.0 Automated eosinophil count 0.2 10*3/uL 0.0-0.3 Automated blood basophil count (count/volume) 0.0 10*3/uL 0.0-0.1 Blood manual differential performed detection - 10/30/18 09:22 Blood monocytes/100 leukocytes 11 % NRG Manual blood segmented neutrophils/100 leukocytes 84 % NRG Blood band neutrophils/100 leukocytes 3 % NRG Manual blood lymphocytes/100 leukocytes 2 % NRG Manual eosinophils/100 leukocytes in nose 0 % NRG Manual blood basophils/100 leukocytes 0 % NRG Blood anisocytosis detection by light microscopy SLIGHT NRG Blood ovalocytes detection by light microscopy SLIGHT NRG Blood poikilocytosis detection by light microscopy SLIGHT NRG Complete blood count (CBC) with automated white blood cell (WBC) differential - 11/06/18 08:58 Blood leukocytes automated count (number/volume) 2.7 10*3/uL 4.3-11.0 Blood erythrocytes automated count (number/volume) 3.20 10*6/uL 4.35-5.85 Venous blood hemoglobin measurement (mass/volume) 11.5 g/dL 13.3-17.7 Blood hematocrit (volume fraction) 35 % 40-54 Automated erythrocyte mean corpuscular volume 108 [foz_us] 80-99 Automated erythrocyte mean corpuscular hemoglobin (mass per erythrocyte) 36 pg 25-34 Automated erythrocyte mean corpuscular hemoglobin concentration measurement ( mass/volume) 33 g/dL 32-36 Automated erythrocyte distribution width ratio 15.1 % 10.0-14.5 Automated blood platelet count (count/volume) 112 10*3/uL 130-400 Automated blood platelet mean volume measurement 9.5 [foz_us] 7.4-10.4 Automated blood neutrophils/100 leukocytes 39 % 42-75 Automated blood lymphocytes/100 leukocytes 13 % 12-44 Blood monocytes/100 leukocytes 26 % 0-12 Automated blood eosinophils/100 leukocytes 20 % 0-10 Automated blood basophils/100 leukocytes 2 % 0-10 Blood neutrophils automated count (number/volume) 1.0 10*3 1.8-7.8 Blood lymphocytes automated count (number/volume) 0.4 10*3 1.0-4.0 Blood monocytes automated count (number/volume) 0.7 10*3 0.0-1.0 Automated eosinophil count 0.5 10*3/uL 0.0-0.3 Automated blood basophil count (count/volume) 0.0 10*3/uL 0.0-0.1 Complete blood count (CBC) with automated white blood cell (WBC) differential - 11/13/18 12:13 Blood leukocytes automated count (number/volume) 2.2 10*3/uL 4.3-11.0 Blood erythrocytes automated count (number/volume) 3.48 10*6/uL 4.35-5.85 Venous blood hemoglobin measurement (mass/volume) 12.3 g/dL 13.3-17.7 Blood hematocrit (volume fraction) 37 % 40-54 Automated erythrocyte mean corpuscular volume 107 [foz_us] 80-99 Automated erythrocyte mean corpuscular hemoglobin (mass per erythrocyte) 35 pg 25-34 Automated erythrocyte mean corpuscular hemoglobin concentration measurement ( mass/volume) 33 g/dL 32-36 Automated erythrocyte distribution width ratio 15.1 % 10.0-14.5 Automated blood platelet count (count/volume) 137 10*3/uL 130-400 Automated blood platelet mean volume measurement 9.5 [foz_us] 7.4-10.4 Automated blood neutrophils/100 leukocytes 23 % 42-75 Automated blood lymphocytes/100 leukocytes 27 % 12-44 Blood monocytes/100 leukocytes 32 % 0-12 Automated blood eosinophils/100 leukocytes 16 % 0-10 Automated blood basophils/100 leukocytes 1 % 0-10 Blood neutrophils automated count (number/volume) 0.5 10*3 1.8-7.8 Blood lymphocytes automated count (number/volume) 0.6 10*3 1.0-4.0 Blood monocytes automated count (number/volume) 0.7 10*3 0.0-1.0 Automated eosinophil count 0.4 10*3/uL 0.0-0.3 Automated blood basophil count (count/volume) 0.0 10*3/uL 0.0-0.1 Complete blood count (CBC) with automated white blood cell (WBC) differential - 11/20/18 08:49 Blood leukocytes automated count (number/volume) 5.7 10*3/uL 4.3-11.0 Blood erythrocytes automated count (number/volume) 3.15 10*6/uL 4.35-5.85 Venous blood hemoglobin measurement (mass/volume) 11.2 g/dL 13.3-17.7 Blood hematocrit (volume fraction) 34 % 40-54 Automated erythrocyte mean corpuscular volume 107 [foz_us] 80-99 Automated erythrocyte mean corpuscular hemoglobin (mass per erythrocyte) 36 pg 25-34 Automated erythrocyte mean corpuscular hemoglobin concentration measurement ( mass/volume) 33 g/dL 32-36 Automated erythrocyte distribution width ratio 15.5 % 10.0-14.5 Automated blood platelet count (count/volume) 77 10*3/uL 130-400 Automated blood platelet mean volume measurement 10.8 [foz_us] 7.4-10.4 Automated blood neutrophils/100 leukocytes 56 % 42-75 Automated blood lymphocytes/100 leukocytes 21 % 12-44 Blood monocytes/100 leukocytes 15 % 0-12 Automated blood eosinophils/100 leukocytes 4 % 0-10 Automated blood basophils/100 leukocytes 1 % 0-10 Blood neutrophils automated count (number/volume) 3.2 10*3 1.8-7.8 Blood lymphocytes automated count (number/volume) 1.2 10*3 1.0-4.0 Blood monocytes automated count (number/volume) 0.9 10*3 0.0-1.0 Automated eosinophil count 0.2 10*3/uL 0.0-0.3 Automated blood basophil count (count/volume) 0.0 10*3/uL 0.0-0.1 Encounters ACCT No. Visit Date/Time Discharge Status Pt. Type Provider Facility Loc./Unit Complaint [id number] 11/20/2018 08:41:00 11/20/2018 23:59:59 CLS Outpatient DAVID LEACH SORAIDA V [facility] LAB FS E64.81 [id number] 11/13/2018 11:59:00 11/13/2018 23:59:59 CLS Outpatient DAVID LEACH SORAIDA V [facility] LAB FS D64.81 [id number] 11/06/2018 08:30:00 11/06/2018 23:59:59 CLS Outpatient DAVID LEACH SORAIDA V [facility] LAB FS D64.81 [id number] 10/30/2018 08:41:00 10/30/2018 23:59:59 CLS Outpatient DAVID LEACH SORAIDA V [facility] LAB FS CBC [id number] 10/03/2018 09:21:00 10/03/2018 23:59:59 CLS Outpatient DAVID LEACH SORAIDA V [facility] RAD DIFUSE LARGE B-CELL LYMPHOMA [id number] 12/16/2014 00:09:00 12/16/2014 23:59:59 CLS Preadmit SANJUANITA SADLER MD [facility] ONC [id number] 10/02/2014 14:51:00 12/15/2014 00:01:00 DIS Outpatient SANJUANITA SADLER MD [facility] ONC [id number] 10/02/2018 11:12:00 Document Registration [id number] 10/16/2018 10:39:00 10/16/2018 23:59:59 DIS Outpatient DAVID, SORAIDA V [id number] 10/02/2014 14:52:12 ACT Document Registration [id number] 10/23/2018 09:08:00 10/23/2018 23:59:00 DIS Outpatient UNLISTED, UNLISTED [id number] 09/28/2018 18:03:00 10/02/2018 09:00:00 DIS Inpatient [facility] ICU [id number] 09/28/2018 18:29:07 Document Registration [id number] 10/20/2018 13:05:00 ACT Unknown [id number] 11/17/2018 14:00:00 11/17/2018 23:59:59 [facility]
[2018-11-27] MEDS ORDERED: NS IV 1000 ML 1,000 ML IV SCH (09:45)
--- NOTE | 2018-11-27 09:46 | ED General ---
General Stated Complaint: COUGH; FEVER History of Present Illness Date Seen by Provider: Nov 27, 2018 Time Seen by Provider: 09:30 Initial Comments This is a 88 y/o m who presents to the ED for evaluation. Pt with progressive cough/fever over the past 2 days. Reports generalized weakness. Typically ambulates without assistance. Unable to ambulate to the bathroom without assistance today. +flu vaccination. 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 Did not respond and planning to start new chemotherapy soon. Currently on Methotrexate. +nausea, no vomiting, no chest pain, no SOB, no LE edema. Allergies and Home Medications Allergies Coded Allergies: No Known Drug Allergies (Unverified , 02/05/10) Home Medications Amlodipine Besylate 5 Mg Tablet, 5 MG PO DAILY, (Reported) Aspirin 81 Mg Tabec, 81 MG PO DAILY, (Reported) Clopidogrel Bisulfate 75 Mg Tablet, 1 EACH PO DAILY, (Reported) Patient Home Medication List Home Medication List Reviewed: Yes Review of Systems Review of Systems Constitutional: chills, fever, malaise, weakness Skin: no rash, no itching, no lesions Resp: +cough, no SOB, no wheezing Cards: no chest pain, no orthopnea, no LE edema, no palpitations GI: no abdominal pain, +nausea no vomiting, no diarrhea : no dysuria, no hematuria, Endo: no polyuria, no polyphagia, no polydipsia Psych: No depression, no substance abuse, Past Fotzata-Kedgvr-Nxzpbi Hx Patient Social History Recent Foreign Travel: No Contact w/Someone Who Travel: No Past Medical History Reproductive Disorders: No Physical Exam Vital Signs Vital Signs - First Documented 11/27/18 10:40 Temp 100.4 Capillary Refill : Height, Weight, BMI Height: '" Weight: lbs. oz. kg; BMI Method: General Appearance: WD/WN, Mild Distress Comments HEENT: NC/AT Neck: No JVD, Normal ROM Respiratory: No respiratory distress, diffuse rhonchi Cardio: RRR, no rubs, no murmurs, no clicks, no gallops, Radial pulses +2/4 bilateral GI: Soft, non-distended, no masses, non-tender Back: Normal ROM Extremities: +1 non-pitting edema to bilateral LE, no deformities, intact general mobility/ROM, pulses present in all 4 extremities Psych: Calm, Cooperative, Good judgement, Focused Exam Lactate Level 11/27/18 09:45: Lactic Acid Level 1.88 Lactic Acid Level Laboratory Tests Test 11/27/18 09:45 Lactic Acid Level 1.88 MMOL/L (0.50-2.00) Progress/Results/Core Measures Suspected Sepsis SIRS Temperature: Pulse: Respiratory Rate: Laboratory Tests 11/27/18 09:45: White Blood Count 7.8 Blood Pressure / Mean: 11/27/18 09:45: Lactic Acid Level 1.88 Laboratory Tests 11/27/18 09:45: Creatinine 0.96, Platelet Count 150, Total Bilirubin 0.6 Results/Orders Lab Results Laboratory Tests Test 11/27/18 09:45 11/27/18 10:30 Range/Units White Blood Count 7.8 4.3-11.0 10^3/uL Red Blood Count 3.10 L 4.35-5.85 10^6/uL Hemoglobin 10.9 L 13.3-17.7 G/DL Hematocrit 33 L 40-54 % Mean Corpuscular Volume 106 H 80-99 FL Mean Corpuscular Hemoglobin 35 H 25-34 PG Mean Corpuscular Hemoglobin Concent 33 32-36 G/DL Red Cell Distribution Width 15.5 H 10.0-14.5 % Platelet Count 150 130-400 10^3/uL Mean Platelet Volume 10.4 7.4-10.4 FL Neutrophils (%) (Auto) 66 42-75 % Lymphocytes (%) (Auto) 19 12-44 % Monocytes (%) (Auto) 14 H 0-12 % Eosinophils (%) (Auto) 0 0-10 % Basophils (%) (Auto) 0 0-10 % Neutrophils # (Auto) 5.1 1.8-7.8 X 10^3 Lymphocytes # (Auto) 1.5 1.0-4.0 X 10^3 Monocytes # (Auto) 1.1 H 0.0-1.0 X 10^3 Eosinophils # (Auto) 0.0 0.0-0.3 10^3/uL Basophils # (Auto) 0.0 0.0-0.1 10^3/uL Sodium Level 138 135-145 MMOL/L Potassium Level 3.9 3.6-5.0 MMOL/L Chloride Level 99 98-107 MMOL/L Carbon Dioxide Level 29 21-32 MMOL/L Anion Gap 10 5-14 MMOL/L Blood Urea Nitrogen 18 7-18 MG/DL Creatinine 0.96 0.60-1.30 MG/DL Estimat Glomerular Filtration Rate > 60 BUN/Creatinine Ratio 19 Glucose Level 145 H 70-105 MG/DL Lactic Acid Level 1.88 0.50-2.00 MMOL/L Calcium Level 9.1 8.5-10.1 MG/DL Corrected Calcium 9.5 8.5-10.1 MG/DL Total Bilirubin 0.6 0.1-1.0 MG/DL Aspartate Amino Transf (AST/SGOT) 27 5-34 U/L Alanine Aminotransferase (ALT/SGPT) 23 0-55 U/L Alkaline Phosphatase 80 40-136 U/L Troponin T 29 H <=15 NG/L Total Protein 5.3 L 6.4-8.2 GM/DL Albumin 3.5 3.2-4.5 GM/DL Micro Results Microbiology 11/27/18 Influenza Types A,B Antigen (CHRISTOPHER) - Final, Complete My Orders Orders - MICHELLE KOWALSKI DO Influenza A And B Antigens (11/27/18 09:36) Lactic Acid Analyzer (11/27/18 09:36) Blood Culture (11/27/18 09:36) Chest 1 View Ap/Pa Only (11/27/18 09:36) Continuous Ekg Monitoring (11/27/18 09:36) Cbc With Automated Diff (11/27/18 09:36) Comprehensive Metabolic Panel (11/27/18 09:36) Troponin T (11/27/18 09:36) Ua Culture If Indicated (11/27/18 09:36) Ekg Tracing (11/27/18 09:36) Ns Iv 1000 Ml (Sodium Chloride 0.9%) (11/27/18 09:45) Blood Culture (11/27/18 09:40) Acetaminophen Tablet (Tylenol Tablet) (11/27/18 10:18) Piperacillin/Tazobactam (Bulk) (Zosyn In (11/27/18 11:00) Vital Signs/I&O 11/27/18 10:40 Temp 100.4 Capillary Refill : Progress Note : Time: 10:53 Progress Note This is an immunocompromised pt who presents with fever. Has been hemodynamically stable while in the ED. CXR with no acute findings. Urine and Flu pending. Will give dose of Zosyn here and 1 L of fluid bolus going. [place] on diversion and pt has requested transfer to [place]. Discussed with Dr. Rivers, customer solutions coordinator hospitalist at that facility who is agreeable to accept the pt. Risks of transfer discussed with the pt. ECG EKG : EKG Time: 10:02 Rate: 80 Comment LBBB, no previous to compare to Diagnostic Imaging Diagonstic Imaging: Xray Plain Films/CT/US/NM/MRI: chest Comments No acute findings Rad read IMPRESSION: Mild right basilar atelectasis, air trapping, and COPD. Old rib deformities and the central line in good position with no pneumothorax. Reviewed: Reviewed by Me Departure Impression Primary Impression: Fever Additional Impressions: Weakness Immunocompromised Disposition: XFER SHT-TRM HOSP Condition: Stable Departure-Patient Inst. Referrals: JOVANNY GRANADOS MD (PCP/Family) Primary Care Physician MICHELLE KOWALSKI DO Nov 27, 2018 09:46
[2018-11-27 10:06] LABS: BASOPHILS % (AUTO) 0 % (0-10); EOSINOPHILS % (AUTO) 0 % (0-10); HEMATOCRIT 33 % (40-54); HEMOGLOBIN 10.9 G/DL (13.3-17.7); LYMPHOCYTES # (AUTO) 1.5 X 10^3 (1.0-4.0); LYMPHOCYTES % (AUTO) 19 % (12-44); MEAN CORPUSCULAR HEMOGLOBIN 35 PG (25-34); MEAN CORPUSCULAR HGB CONC 33 G/DL (32-36); MEAN CORPUSCULAR VOLUME 106 FL (80-99); MEAN PLATELET VOLUME 10.4 FL (7.4-10.4); MONOCYTES # (AUTO) 1.1 X 10^3 (0.0-1.0); MONOCYTES % (AUTO) 14 % (0-12); NEUTROPHILS # (AUTO) 5.1 X 10^3 (1.8-7.8); NEUTROPHILS % (AUTO) 66 % (42-75); PLATELET COUNT 150 10^3/uL (130-400); RED CELL DISTRIBUTION WIDTH 15.5 % (10.0-14.5); WHITE BLOOD COUNT 7.8 10^3/uL (4.3-11.0)
[2018-11-27] MEDS ORDERED: ACETAMINOPHEN 500 MG TAB (TYLENOL) PO STA (10:18)
[2018-11-27 10:23] LABS: ALANINE AMINOTRANSFERASE 23 U/L (0-55); ALBUMIN 3.5 GM/DL (3.2-4.5); ALKALINE PHOSPHATASE 80 U/L (40-136); BILIRUBIN,TOTAL 0.6 MG/DL (0.1-1.0); BUN/CREATININE RATIO 19; CALCIUM 9.1 MG/DL (8.5-10.1); CARBON DIOXIDE 29 MMOL/L (21-32); CHLORIDE 99 MMOL/L (98-107); CREATININE SERUM 0.96 MG/DL (0.60-1.30); GFR ESTIMATED > 60; GLUCOSE 145 MG/DL (70-105); POTASSIUM 3.9 MMOL/L (3.6-5.0); SODIUM 138 MMOL/L (135-145); TOTAL PROTEIN 5.3 GM/DL (6.4-8.2)
--- NOTE | 2018-11-27 10:29 | Diagnostic Imaging Report ---
INDICATION: Cough and fever FINDINGS: Right subclavian catheter tip is at the SVC. There is air trapping and changes likely owing to COPD. Old appearing left rib deformities posterolaterally are present, believed chronic. There is some scarring or subsegmental discoid atelectasis to the right lung base. IMPRESSION: Mild right basilar atelectasis, air trapping, and COPD. Old rib deformities and the central line in good position with no pneumothorax. Dictated by: Dictated on workstation # [id number]
[2018-11-27 10:56] LABS: BILIRUBIN,URINE NEGATIVE (NEGATIVE); CLARITY,URINE CLEAR; COLOR,URINE YELLOW; GLUCOSE, URINE (UA) NEGATIVE (NEGATIVE); KETONES,URINE NEGATIVE (NEGATIVE); LEUKOCYTE ESTERASE ,URINE NEGATIVE (NEGATIVE); NITRITE,URINE NEGATIVE (NEGATIVE); PH,URINE 6.5 (5-9); PROTEIN,URINE NEGATIVE (NEGATIVE); UROBILINOGEN,URINE 0.2 MG/DL (NORMAL)
[2018-11-27 10:57] LABS: SQUAMOUS EPITHELIAL CELL,UR RARE /HPF
[2018-11-27] MEDS ORDERED: PIPERACILLIN/TAZOBACTAM (BULK) 4.5 GM in NS (IVPB) 100 ML IV ONE (11:00)
[2018-11-27] MEDS ORDERED: PIPERACILLIN/TAZO 4.5 GM VIAL (ZOSYN) IV ONE (11:00)
[2018-11-27] MEDS ORDERED: NS (IVPB) 100 ML ONE (11:01)
[2018-11-27] MEDS ORDERED: WATER (STERILE) FOR INJECTION 20 ML ONE (11:01)
--- NOTE | 2018-11-27 11:30 | NUR ---
Pt has had IV fluids and Zosyn infuse.
--- NOTE | 2018-11-27 11:58 | NUR ---
ER Visit: Hans is being well supported by his two daughters who live nearby. Hans is a strong [employer] and has full confidence in God's nearness, concern and guidance. Provided words of gabriel assurances to Hans and listening presence to his daughters who appear more concern than patient. This is a very close knit family and the daughters have drawn closer to their father in light of their mother's within the year. Shared prayer and blessing.
--- NOTE | 2018-11-27 12:00 | NUR ---
Dispatch for [facility], [facility] is out of county in route [facility]. Await response. They will contact shift captain.
--- NOTE | 2018-11-27 12:18 | NUR ---
[facility] has only 3 trucks in service, not 4 this week and they can not leave their county uncovered for an out of county transfer. Notified Dr Navarro. Earlier discussed with pt and family about POV if no fluids running.
--- NOTE | 2018-11-27 12:30 | NUR ---
Plan to transfer per POV with family, [facility] notified.
[2018-11-27 13:00] VITALS: BP 116/68
--- NOTE | 2018-11-27 13:00 | NUR ---
Pt transferred per POV at this time with family to [facility]. Packet sent, records previously faxed.
== END 2018-11-27 13:00 | disposition short-term general hospital (02) ==
LOC: EDUNIT# 08:55 → ER FS 08:57
DX: D89.9 Disorder involving the immune mechanism, unspecified (principal); R53.1 Weakness; R50.9 Fever, unspecified; C91.10 Chronic lymphocytic leukemia of B-cell type not having achieved remission; Z79.82 Long term (current) use of aspirin
CPT/HCPCS: 36415; 71045; 80053; 81000; 83605; 84145; 84484; 85025; 87040; 87804; 93005

== ENCOUNTER → 2019-01-22 | Outpatient (CLI) | payer MEDICARE ==
[2019-01-22 09:23] LABS: CARBON DIOXIDE 29 MMOL/L (21-32); CHLORIDE 102 MMOL/L (98-107); SODIUM 141 MMOL/L (135-145)
[2019-01-22 09:24] LABS: ALANINE AMINOTRANSFERASE 25 U/L (0-55); ALBUMIN 3.8 GM/DL (3.2-4.5); ALKALINE PHOSPHATASE 73 U/L (40-136); BILIRUBIN,TOTAL 0.6 MG/DL (0.1-1.0); BUN/CREATININE RATIO 22; CALCIUM 8.9 MG/DL (8.5-10.1); CREATININE SERUM 1.01 MG/DL (0.60-1.30); GFR ESTIMATED > 60; GLUCOSE 92 MG/DL (70-105); TOTAL PROTEIN 5.3 GM/DL (6.4-8.2)
[2019-01-22 10:40] LABS: CHOLESTEROL 119 MG/DL (< 200); HDL CHOLESTEROL 38 MG/DL (40-60); TRIGLYCERIDES 78 MG/DL (<150); VLDL CHOLESTEROL 16 MG/DL (5-40)
== END ==
LOC: LAB FS 08:34
PROVIDERS: ATTEND Family Medicine
DX: E78.5 Hyperlipidemia, unspecified (principal); C85.90 Non-Hodgkin lymphoma, unspecified, unspecified site; D63.1 Anemia in chronic kidney disease; N18.9 Chronic kidney disease, unspecified
CPT/HCPCS: 36415; 80053; 80061

== ENCOUNTER 2019-01-29 08:34 | Outpatient (RCR) | payer MEDICARE ==
[2018-11-20 08:55] LABS: BASOPHILS % (AUTO) 1 % (0-10); EOSINOPHILS % (AUTO) 4 % (0-10); HEMATOCRIT 34 % (40-54); HEMOGLOBIN 11.2 G/DL (13.3-17.7); LYMPHOCYTES % (AUTO) 21 % (12-44); MEAN CORPUSCULAR HEMOGLOBIN 36 PG (25-34); MEAN CORPUSCULAR HGB CONC 33 G/DL (32-36); MEAN CORPUSCULAR VOLUME 107 FL (80-99); MEAN PLATELET VOLUME 10.8 FL (7.4-10.4); MONOCYTES % (AUTO) 15 % (0-12); NEUTROPHILS % (AUTO) 56 % (42-75); PLATELET COUNT 77 10^3/uL (130-400); RED CELL DISTRIBUTION WIDTH 15.5 % (10.0-14.5); WHITE BLOOD COUNT 5.7 10^3/uL (4.3-11.0)
[2018-11-20 08:56] LABS: EOSINOPHILS # (AUTO) 0.2 10^3/uL (0.0-0.3); LYMPHOCYTES # (AUTO) 1.2 X 10^3 (1.0-4.0); MONOCYTES # (AUTO) 0.9 X 10^3 (0.0-1.0); NEUTROPHILS # (AUTO) 3.2 X 10^3 (1.8-7.8)
[2018-12-11 10:48] LABS: HEMATOCRIT 35 % (40-54); HEMOGLOBIN 11.4 G/DL (13.3-17.7); MEAN CORPUSCULAR HEMOGLOBIN 34 PG (25-34); WHITE BLOOD COUNT 5.9 10^3/uL (4.3-11.0)
[2018-12-11 10:49] LABS: BASOPHILS % (AUTO) 1 % (0-10); EOSINOPHILS # (AUTO) 0.5 10^3/uL (0.0-0.3); EOSINOPHILS % (AUTO) 8 % (0-10); LYMPHOCYTES # (AUTO) 1.8 X 10^3 (1.0-4.0); LYMPHOCYTES % (AUTO) 30 % (12-44); MEAN CORPUSCULAR HGB CONC 33 G/DL (32-36); MEAN CORPUSCULAR VOLUME 105 FL (80-99); MEAN PLATELET VOLUME 11.1 FL (7.4-10.4); MONOCYTES # (AUTO) 0.7 X 10^3 (0.0-1.0); MONOCYTES % (AUTO) 12 % (0-12); NEUTROPHILS # (AUTO) 2.9 X 10^3 (1.8-7.8); NEUTROPHILS % (AUTO) 48 % (42-75); PLATELET COUNT 174 10^3/uL (130-400); RED CELL DISTRIBUTION WIDTH 15.1 % (10.0-14.5)
[2018-12-18 09:04] LABS: HEMATOCRIT 36 % (40-54); HEMOGLOBIN 11.5 G/DL (13.3-17.7); MEAN CORPUSCULAR HEMOGLOBIN 34 PG (25-34); MEAN CORPUSCULAR HGB CONC 34 G/DL (32-36); MEAN CORPUSCULAR VOLUME 106 FL (80-99); WHITE BLOOD COUNT 7.4 10^3/uL (4.3-11.0)
[2018-12-18 09:05] LABS: BASOPHILS # (AUTO) 0.1 10^3/uL (0.0-0.1); BASOPHILS % (AUTO) 1 % (0-10); EOSINOPHILS # (AUTO) 0.7 10^3/uL (0.0-0.3); EOSINOPHILS % (AUTO) 9 % (0-10); LYMPHOCYTES # (AUTO) 1.7 X 10^3 (1.0-4.0); LYMPHOCYTES % (AUTO) 23 % (12-44); MEAN PLATELET VOLUME 11.5 FL (7.4-10.4); MONOCYTES # (AUTO) 1.3 X 10^3 (0.0-1.0); MONOCYTES % (AUTO) 17 % (0-12); NEUTROPHILS # (AUTO) 3.7 X 10^3 (1.8-7.8); NEUTROPHILS % (AUTO) 50 % (42-75); PLATELET COUNT 109 10^3/uL (130-400); RED CELL DISTRIBUTION WIDTH 15.1 % (10.0-14.5)
[2018-12-25 09:03] LABS: WHITE BLOOD COUNT 7.2 10^3/uL (4.3-11.0)
[2018-12-25 09:04] LABS: HEMATOCRIT 34 % (40-54); HEMOGLOBIN 11.3 G/DL (13.3-17.7); MEAN CORPUSCULAR HEMOGLOBIN 35 PG (25-34); MEAN CORPUSCULAR HGB CONC 33 G/DL (32-36); MEAN CORPUSCULAR VOLUME 105 FL (80-99); PLATELET COUNT 110 10^3/uL (130-400); RED CELL DISTRIBUTION WIDTH 15.3 % (10.0-14.5)
[2018-12-25 09:05] LABS: BASOPHILS # (AUTO) 0.1 10^3/uL (0.0-0.1); BASOPHILS % (AUTO) 1 % (0-10); EOSINOPHILS # (AUTO) 0.8 10^3/uL (0.0-0.3); EOSINOPHILS % (AUTO) 12 % (0-10); LYMPHOCYTES # (AUTO) 1.8 X 10^3 (1.0-4.0); LYMPHOCYTES % (AUTO) 25 % (12-44); MEAN PLATELET VOLUME 10.6 FL (7.4-10.4); MONOCYTES # (AUTO) 0.7 X 10^3 (0.0-1.0); MONOCYTES % (AUTO) 10 % (0-12); NEUTROPHILS # (AUTO) 3.7 X 10^3 (1.8-7.8); NEUTROPHILS % (AUTO) 52 % (42-75)
[2019-01-01 09:50] LABS: BASOPHILS % (AUTO) 2 % (0-10); EOSINOPHILS % (AUTO) 13 % (0-10); HEMATOCRIT 52 % (40-54); HEMOGLOBIN 17.2 G/DL (13.3-17.7); LYMPHOCYTES # (AUTO) 0.4 X 10^3 (1.0-4.0); LYMPHOCYTES % (AUTO) 24 % (12-44); MEAN CORPUSCULAR HEMOGLOBIN 34 PG (25-34); MEAN CORPUSCULAR HGB CONC 33 G/DL (32-36); MEAN CORPUSCULAR VOLUME 104 FL (80-99); MEAN PLATELET VOLUME 11.2 FL (7.4-10.4); MONOCYTES # (AUTO) 0.2 X 10^3 (0.0-1.0); MONOCYTES % (AUTO) 12 % (0-12); NEUTROPHILS # (AUTO) 0.8 X 10^3 (1.8-7.8); NEUTROPHILS % (AUTO) 49 % (42-75); PLATELET COUNT 65 10^3/uL (130-400); RED CELL DISTRIBUTION WIDTH 15.9 % (10.0-14.5); WHITE BLOOD COUNT 1.7 10^3/uL (4.3-11.0)
[2019-01-01 09:51] LABS: BASOPHILS # (AUTO) 0.1 10^3/uL (0.0-0.1); EOSINOPHILS # (AUTO) 0.2 10^3/uL (0.0-0.3)
[2019-01-08 09:20] LABS: WHITE BLOOD COUNT 5.7 10^3/uL (4.3-11.0)
[2019-01-08 09:21] LABS: BASOPHILS # (AUTO) 0.1 10^3/uL (0.0-0.1); BASOPHILS % (AUTO) 2 % (0-10); EOSINOPHILS # (AUTO) 0.3 10^3/uL (0.0-0.3); EOSINOPHILS % (AUTO) 6 % (0-10); HEMATOCRIT 33 % (40-54); HEMOGLOBIN 10.9 G/DL (13.3-17.7); LYMPHOCYTES # (AUTO) 1.2 X 10^3 (1.0-4.0); LYMPHOCYTES % (AUTO) 20 % (12-44); MEAN CORPUSCULAR HEMOGLOBIN 35 PG (25-34); MEAN CORPUSCULAR HGB CONC 33 G/DL (32-36); MEAN CORPUSCULAR VOLUME 105 FL (80-99); MEAN PLATELET VOLUME 9.6 FL (7.4-10.4); MONOCYTES # (AUTO) 0.6 X 10^3 (0.0-1.0); MONOCYTES % (AUTO) 10 % (0-12); NEUTROPHILS # (AUTO) 3.3 X 10^3 (1.8-7.8); NEUTROPHILS % (AUTO) 58 % (42-75); PLATELET COUNT 118 10^3/uL (130-400)
[2019-01-15 09:02] LABS: HEMATOCRIT 34 % (40-54); HEMOGLOBIN 11.1 G/DL (13.3-17.7); MEAN CORPUSCULAR HEMOGLOBIN 35 PG (25-34); MEAN CORPUSCULAR HGB CONC 33 G/DL (32-36); MEAN CORPUSCULAR VOLUME 107 FL (80-99); RED CELL DISTRIBUTION WIDTH 16.6 % (10.0-14.5); WHITE BLOOD COUNT 3.8 10^3/uL (4.3-11.0)
[2019-01-15 09:03] LABS: BASOPHILS # (AUTO) 0.1 10^3/uL (0.0-0.1); BASOPHILS % (AUTO) 2 % (0-10); EOSINOPHILS # (AUTO) 0.5 10^3/uL (0.0-0.3); LYMPHOCYTES # (AUTO) 1.1 X 10^3 (1.0-4.0); LYMPHOCYTES % (AUTO) 28 % (12-44); MEAN PLATELET VOLUME 10.9 FL (7.4-10.4); MONOCYTES # (AUTO) 0.2 X 10^3 (0.0-1.0); MONOCYTES % (AUTO) 5 % (0-12); NEUTROPHILS % (AUTO) 52 % (42-75); PLATELET COUNT 103 10^3/uL (130-400)
[2019-01-15 09:13] LABS: EOSINOPHILS % (AUTO) 13 % (0-10)
[2019-01-22 09:15] LABS: HEMOGLOBIN 11.6 G/DL (13.3-17.7); MEAN CORPUSCULAR HEMOGLOBIN 35 PG (25-34); WHITE BLOOD COUNT 2.9 10^3/uL (4.3-11.0)
[2019-01-22 09:16] LABS: BASOPHILS # (AUTO) 0.1 10^3/uL (0.0-0.1); BASOPHILS % (AUTO) 2 % (0-10); EOSINOPHILS # (AUTO) 0.6 10^3/uL (0.0-0.3); EOSINOPHILS % (AUTO) 21 % (0-10); HEMATOCRIT 36 % (40-54); LYMPHOCYTES % (AUTO) 34 % (12-44); MEAN CORPUSCULAR HGB CONC 33 G/DL (32-36); MEAN CORPUSCULAR VOLUME 107 FL (80-99); MEAN PLATELET VOLUME 11.6 FL (7.4-10.4); MONOCYTES # (AUTO) 0.5 X 10^3 (0.0-1.0); MONOCYTES % (AUTO) 18 % (0-12); NEUTROPHILS # (AUTO) 0.7 X 10^3 (1.8-7.8); NEUTROPHILS % (AUTO) 25 % (42-75); PLATELET COUNT 66 10^3/uL (130-400); RED CELL DISTRIBUTION WIDTH 16.3 % (10.0-14.5)
[2019-01-29 08:52] LABS: HEMATOCRIT 33 % (40-54); HEMOGLOBIN 10.6 G/DL (13.3-17.7); WHITE BLOOD COUNT 5.5 10^3/uL (4.3-11.0)
[2019-01-29 08:53] LABS: MEAN CORPUSCULAR HEMOGLOBIN 35 PG (25-34); MEAN CORPUSCULAR HGB CONC 32 G/DL (32-36); MEAN CORPUSCULAR VOLUME 107 FL (80-99); MEAN PLATELET VOLUME 10.2 FL (7.4-10.4); PLATELET COUNT 64 10^3/uL (130-400); RED CELL DISTRIBUTION WIDTH 16.3 % (10.0-14.5)
[2019-01-29 08:54] LABS: BASOPHILS % (AUTO) 0 % (0-10); EOSINOPHILS # (AUTO) 0.8 10^3/uL (0.0-0.3); EOSINOPHILS % (AUTO) 15 % (0-10); LYMPHOCYTES # (AUTO) 1.2 X 10^3 (1.0-4.0); LYMPHOCYTES % (AUTO) 22 % (12-44); MONOCYTES # (AUTO) 0.7 X 10^3 (0.0-1.0); MONOCYTES % (AUTO) 13 % (0-12); NEUTROPHILS # (AUTO) 2.8 X 10^3 (1.8-7.8); NEUTROPHILS % (AUTO) 50 % (42-75)
[2019-01-29 09:39] LABS: ATYPICAL LYMPHOCYTES 5 %; BAND NEUTROPHILS 4 %; BASOPHILS % (MANUAL) 1 %; EOSINOPHILS % (MANUAL) 13 %; LYMPHOCYTES % (MANUAL) 31 %; METAMYELOCYTES % 2 %; MONOCYTES % (MANUAL) 4 %; NEUTROPHILS % (MANUAL) 40 %
[2019-02-06 09:06] LABS: BASOPHILS # (AUTO) 0.1 10^3/uL (0.0-0.1); BASOPHILS % (AUTO) 3 % (0-10); EOSINOPHILS # (AUTO) 0.3 10^3/uL (0.0-0.3); EOSINOPHILS % (AUTO) 9 % (0-10); HEMATOCRIT 32 % (40-54); HEMOGLOBIN 10.5 G/DL (13.3-17.7); LYMPHOCYTES # (AUTO) 0.5 X 10^3 (1.0-4.0); LYMPHOCYTES % (AUTO) 15 % (12-44); MEAN CORPUSCULAR HEMOGLOBIN 35 PG (25-34); MEAN CORPUSCULAR HGB CONC 33 G/DL (32-36); MEAN CORPUSCULAR VOLUME 107 FL (80-99); MEAN PLATELET VOLUME 9.8 FL (7.4-10.4); MONOCYTES # (AUTO) 0.4 X 10^3 (0.0-1.0); MONOCYTES % (AUTO) 10 % (0-12); NEUTROPHILS # (AUTO) 2.1 X 10^3 (1.8-7.8); NEUTROPHILS % (AUTO) 62 % (42-75); PLATELET COUNT 151 10^3/uL (130-400); RED CELL DISTRIBUTION WIDTH 16.8 % (10.0-14.5); WHITE BLOOD COUNT 3.4 10^3/uL (4.3-11.0)
== END 2019-02-18 | disposition home or self-care (01) ==
LOC: LAB FS 08:34
PROVIDERS: ATTEND Internal Medicine Hematology & Oncology
DX: D64.81 Anemia due to antineoplastic chemotherapy (principal); T45.1X5A Adverse effect of antineoplastic and immunosuppressive drugs, initial encounter
CPT/HCPCS: 36415; 85007; 85025; 85027

== ENCOUNTER → 2019-02-13 | Outpatient (CLI) | payer MEDICARE ==
--- NOTE | 2019-02-13 13:39 | Diagnostic Imaging Report ---
INDICATION: Non-Hodgkin's lymphoma. Patient also has bilateral lower extremity skin lesions. TECHNIQUE: Serum blood glucose level at the time injection is 107 mg/dL. Patient was administered 12.2 mCi F-18 FDG intravenously in the right antecubital location and whole body PET imaging was performed. Noncontrast CT was also performed for attenuation correction and anatomic correlation. COMPARISON: Correlation is made with prior PET scan from 10/03/2018. FINDINGS: There is symmetric activity throughout the brain. There is some uptake identified in the region of the anterior aspect of the hard palate. Patient does have some dental hardware at this location, this is indeterminate. There is also uptake along the lateral aspect of the tongue with SUV max of approximately 6. Direct visualization of these two areas would be recommended. Remainder of the soft tissues of the neck are unremarkable. Areas of low-level activity in the AP window and right hilum are again noted. SUV max in the right hilum is approximately 5.8. AP window activity demonstrates SUV max of approximately 4. Pulmonary parenchyma is unremarkable. Abdomen and pelvis again demonstrate physiologic activity within the GI and tracts. No abnormal hypermetabolism is seen. There are numerous skin lesions involving bilateral lower extremities, particularly below the knees. Large focus along the medial aspect of the right knee is seen with SUV max of approximately 13. Lesion along the anterior aspect of the proximal left tibia shows SUV max of 4.8. Anterior lesion at the level of the proximal tibia demonstrates an SUV max of 5.7. Hypermetabolism within the deeper soft tissues posterior to the proximal tibia shows SUV max of 5.1. Hypermetabolic foci at the level of the great toe and first MTP joint shows SUV max of approximately 8. IMPRESSION: 1. There is increased hypermetabolic activity in the region of the hard palate and lateral left aspect of the tongue, indeterminate. Direct visualization is recommended. No definite correlate on the CT is identified. 2. Stable mildly elevated activity in the mediastinum and right hilum. 3. Innumerable foci of abnormal uptake involving bilateral lower extremities, likely correlating with the patient's skin lesions. Dictated by: Dictated on workstation # [id number]
== END ==
LOC: RAD 08:16
PROVIDERS: ATTEND Internal Medicine Hematology & Oncology
DX: C85.90 Non-Hodgkin lymphoma, unspecified, unspecified site (principal); L98.8 Other specified disorders of the skin and subcutaneous tissue; Z97.2 Presence of dental prosthetic device (complete) (partial)

== ENCOUNTER 2019-02-19 08:00 | Outpatient (RCR) | payer MEDICARE ==
[2019-02-12 08:43] LABS: HEMATOCRIT 33 % (40-54); HEMOGLOBIN 11.2 G/DL (13.3-17.7); MEAN CORPUSCULAR HEMOGLOBIN 36 PG (25-34); WHITE BLOOD COUNT 3.3 10^3/uL (4.3-11.0)
[2019-02-12 08:44] LABS: BASOPHILS # (AUTO) 0.1 10^3/uL (0.0-0.1); BASOPHILS % (AUTO) 2 % (0-10); EOSINOPHILS # (AUTO) 0.4 10^3/uL (0.0-0.3); EOSINOPHILS % (AUTO) 13 % (0-10); LYMPHOCYTES # (AUTO) 0.7 X 10^3 (1.0-4.0); LYMPHOCYTES % (AUTO) 21 % (12-44); MEAN CORPUSCULAR HGB CONC 34 G/DL (32-36); MEAN CORPUSCULAR VOLUME 108 FL (80-99); MEAN PLATELET VOLUME 9.8 FL (7.4-10.4); MONOCYTES # (AUTO) 0.5 X 10^3 (0.0-1.0); MONOCYTES % (AUTO) 16 % (0-12); NEUTROPHILS # (AUTO) 1.6 X 10^3 (1.8-7.8); NEUTROPHILS % (AUTO) 47 % (42-75); PLATELET COUNT 145 10^3/uL (130-400); RED CELL DISTRIBUTION WIDTH 17.5 % (10.0-14.5)
[2019-02-12 09:05] LABS: ANISOCYTOSIS SLIGHT; BAND NEUTROPHILS 5 %; BASOPHILS % (MANUAL) 3 %; ELLIPT/OVALOCYTES SLIGHT; EOSINOPHILS % (MANUAL) 15 %; LYMPHOCYTES % (MANUAL) 25 %; METAMYELOCYTES % 1 %; MONOCYTES % (MANUAL) 16 %; NEUTROPHILS % (MANUAL) 35 %
[2019-02-19 08:46] LABS: HEMATOCRIT 41 % (40-54); HEMOGLOBIN 13.1 G/DL (13.3-17.7); MEAN CORPUSCULAR HEMOGLOBIN 36 PG (25-34); MEAN CORPUSCULAR VOLUME 110 FL (80-99); WHITE BLOOD COUNT 6.4 10^3/uL (4.3-11.0)
[2019-02-19 08:47] LABS: BASOPHILS # (AUTO) 0.1 10^3/uL (0.0-0.1); BASOPHILS % (AUTO) 1 % (0-10); EOSINOPHILS # (AUTO) 1.5 10^3/uL (0.0-0.3); EOSINOPHILS % (AUTO) 23 % (0-10); LYMPHOCYTES # (AUTO) 0.8 X 10^3 (1.0-4.0); LYMPHOCYTES % (AUTO) 13 % (12-44); MEAN CORPUSCULAR HGB CONC 32 G/DL (32-36); MEAN PLATELET VOLUME 10.9 FL (7.4-10.4); MONOCYTES % (AUTO) 15 % (0-12); NEUTROPHILS # (AUTO) 3.1 X 10^3 (1.8-7.8); NEUTROPHILS % (AUTO) 48 % (42-75); PLATELET COUNT 128 10^3/uL (130-400); RED CELL DISTRIBUTION WIDTH 16.7 % (10.0-14.5)
== END 2019-05-13 | disposition home or self-care (01) ==
LOC: LAB FS 08:00
PROVIDERS: ATTEND Internal Medicine Hematology & Oncology
DX: D64.81 Anemia due to antineoplastic chemotherapy (principal)
CPT/HCPCS: 36415; 85007; 85025; 85027

== ENCOUNTER 2019-02-21 13:42 | Outpatient (RCR) | payer MEDICARE | END 2019-05-15 | disposition home or self-care (01) | LOC: ONC 13:42 | PROVIDERS: ATTEND Radiology Radiation Oncology | DX: Z51.0 Encounter for antineoplastic radiation therapy (principal); C85.90 Non-Hodgkin lymphoma, unspecified, unspecified site | CPT/HCPCS: 77290; 77300; 77334; 77336; 99202; 99204; 99214 ==

== ENCOUNTER 2019-03-06 09:02 | Emergency (ER) | payer MEDICARE ==
[~2019-03-06] VITALS: Ht 177.8 cm; Wt 74.8 kg
--- OUTSIDE RECORDS SUMMARY | 2019-03-06 09:06 | XMS REPORT | Clinical Summary ---
Author Author [facility] Organization [facility] Address Unknown Phone Unavailable Care Team Providers Care Plastic Straightening Roll Operator Name Role Phone Gamaliel Almanzar MD PCP Allergies Active Allergy Reactions Severity Noted Date Comments Doxycycline Hives Medium 07/08/2015 Mvfxscg-Ojr-Hpc Reductase Myalgia Medium 07/08/2015 Inhibitors Current Medications [...] tablet DAILY NEEDED FOR LEG 19 SWELLING potassium chloride TAKE 1 TABLET BY MOUTH 90 tablet 0 02/15/20 Active (K-DUR,KLOR-CON) 20 MEQ DAILY NEEDED ON DAYS 19 tablet YOU TAKE FUROSEMIDE Active Problems Problem Noted Date NSVT (nonsustained [...] & Plan: Followed by Dr Templeton at [facility] / [place] Bacteremia - coagulase negative Staphylococcus 08/18/2018 Last Assessment & Plan: 08/15 09/13 blood cultures from [facility]: Darby epi Per my conversation with microbiology; report now scanned into Media : suspect contaminant. Update with [facility] 08/21: 2/2 MARYELLEN sequeira finalized 08/18/18 -Repeated BC x 2 08/18 NGTD -ID consult appreciated: will DC Zosyn per ID note; may switch to daptomycin in am for DC / outpatient treatment in [facility]? 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 S/P radiation/chemotherapy. L ast Assessment & Plan: Last chemo approx 10d ago, on cycle every [address] Irving Templeton at [facility] in [place] On home prophylactic acyclovir BID and allopurinol Held 08/18's methotrexate dose H/O deep venous thrombosis 10/02/2012 S/P coronary artery stent placement 04/29/2011 Overview: dRCA. Michael (2010) History of non-ST elevation myocardial infarction (NSTEMI) 09/12/2010 Cardiomyopathy ([facility]) Overview: Chronic systolic Coronary atherosclerosis of [place] coronary vessel Overview: S/P Stents L ast [...] h/o aspiraton On empiric Zosyn (08/16) and [employer] Bactrim prophylaxis Some sinus disease w/o opacification to my review on OSH CT Completed 5d Zosyn;Procal ).32 >> 0.21 On vancomycin for bacteremia -ID consulting Encounters Date Type Specialty Care Team Description 02/06/2019 Refill Cardiology Yovani Kemp MD Other from Last 3 Months Family History Medical [...] Taken Blood Pressure 119/72 09/15/2018 12:58 PM DIGITAL CIRCUIT DESIGNER Pulse 78 09/15/2018 12:58 PM DIGITAL CIRCUIT DESIGNER Temperature 36.3 C (97.3 F) 08/22/2018 8:27 AM DIGITAL CIRCUIT DESIGNER Respiratory Rate 16 08/22/2018 8:27 AM DIGITAL CIRCUIT DESIGNER Oxygen Saturation 94% 08/22/2018 8:27 AM DIGITAL CIRCUIT DESIGNER Inhaled Oxygen - - Concentration Weight 81.4 kg (179 lb 6.4 oz) 09/15/2018 12:58 PM DIGITAL CIRCUIT DESIGNER Height 177.8 cm (5' 10") 08/16/2018 4:00 AM DIGITAL CIRCUIT DESIGNER Body Mass Index 25.74 09/15/2018 12:58 PM DIGITAL CIRCUIT DESIGNER Plan of Treatment Health Maintenance Due Date Last Done Comments Medicare Annual Wellness 1930 Td # 1930 Zoster Vaccine# (1 of 2) 11/19/1979 Pneumococcal Immunization 1994 65+ High/Highest Risk# (1 of 2 - PCV13) Influenza Vaccine (Season 07/13/2019 07/20/2012 Ended) Fall Risk Assessment # 08/22/2019 08/22/2018 Depression Screening 09/15/2019 09/15/2018 PHQ-9 # Results Not on filefrom Last 3 Months
--- OUTSIDE RECORDS SUMMARY | 2019-03-06 09:07 | XMS REPORT ---
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 0 22489341 Problem Post-traumatic subdural hematoma S06.5X9A Aug, 0 69371980 Problem 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 Aug, 0 592003324 Problem Generalized osteoarthrosis, involving multiple sites 715.09 0 95634226 Problem Unilateral inguinal hernia 550.90 Dec, 0 703524436 Problem Bacteremia 790.7 Aug, 0 9536650 Problem Microscopic colitis K52.839 Sep, 0 033764825 Problem External hemorrhoids without mention of complication K64.4 0 81248422 Problem Unilateral inguinal hernia K40.90 Dec, 0 099698870 Problem Benign prostatic hyperplasia with urinary obstruction N40.1 Sep, 0 61514020137071 Problem Benign prostatic hyperplasia with urinary obstruction 600.01 Sep, 0 722717647 Problem Pneumonia of right lower lobe due to infectious organism J18.1 Aug, 0 088394338 Problem Status post colonoscopy V45.89 Sep, 0 201756176577 Problem Arrhythmia 427.9 Aug, 0 089193931 Problem Benign prostatic hyperplasia N40.0 Jul, 0 560681938 Problem Aortic valve disorder I35.9 0 9361804 Problem Subacute pansinusitis J01.40 Oct, 0 8192460 Problem Osteoarthritis of left knee M17.12 Jul, 0 918232318 Problem Osteoarthritis of right knee M17.11 28 Jul, 2011 0 894030070 Problem 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 Apr, 0 Problem Diverticulitis of colon (without mention of hemorrhage)(562.11) K57.32 0 398439422 Problem 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 Apr, 0 608899050 Problem History of UTI Z87.440 14 Aug, 2018 0 6135853506612 Problem Cardiomyopathy I42.9 Jul, 0 83790391 Problem Fever R50.9 Apr, 0 169335708 Problem Hyperlipidemia E78.5 Apr, 0 57405400 Problem Subarachnoid hematoma 852.00 Aug, 0 44260088 Problem Dizziness R42 Oct, 0 816651587 Problem Bacteremia R78.81 Aug, 0 1766879 Problem 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, 0 795926027 Problem HTN (hypertension) I10 Sep, 0 58705964 Problem 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 Nov, 0 194853054 Problem Coronary atherosclerosis I25.10 0 232780656 Problem Aortic valve disorder 424.1 0 7479220 Problem Arrhythmia I49.9 Aug, 0 403923297 Problem TIA (transient ischemic attack) G45.9 Feb, 0 567330688 Problem Osteoarthritis of right knee 715.96 Jul, 0 187607231 Problem TIA (transient ischemic attack) 435.9 Feb, 0 418601661 Problem Coronary atherosclerosis 414.00 0 411912731 Problem Osteoarthritis of left knee 715.96 Jul, 0 287770992 Problem HTN (hypertension) 401.9 Sep, 0 87567734 Problem S/P total knee replacement V43.65 Sep, 0 637342127 Problem Dizziness 780.4 Oct, 0 731983229 Problem 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 Mar, 0 Problem Hyperlipidemia 272.4 Apr, 0 02278735 Problem Microscopic colitis 558.9 Sep, 0 244765770 Problem Fever 780.60 Apr, 0 864341377 Problem S/P total knee replacement Z96.659 Sep, 0 836144954057 Problem External hemorrhoids without mention of complication 455.3 0 46806598 Problem Old myocardial infarction 412 0 4413876 Problem Ischemic cardiomyopathy I25.5 05 Aug, 2018 0 689002502 Problem Chronic kidney disease, unspecified N18.9 Active 930213579 Problem Ischemic cardiomyopathy 414.8 05 Aug, 2018 0 342208639 Problem Subacute pansinusitis 461.8 28 Oct, 2015 0 21691973 Problem 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 918858707 Problem Cardiomyopathy 425.4 Jul, 0 73236558 Problem History of deep venous thrombosis V12.51 Sep, 0 625683050 Problem Subarachnoid hematoma S06.6X9A 05 Aug, 2018 0 39511948 Problem History of UTI V13.02 14 Aug, 2018 0 2939766216024 Problem 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 14 Mar, 2014 0 Problem Old myocardial infarction I25.2 0 4597575 Problem 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 13 Nov, 2017 0 270442432 Problem Status post colonoscopy Z98.890 Sep, 0 159112396126 Problem 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 13 Nov, 2017 0 389755873 Problem Non-Hodgkin''s lymphoma, unspecified body region, unspecified non-Hodgkin lymphoma type C85.90 Active 740034267 Problem 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 Active 884482969 Problem History of deep venous thrombosis Z86.718 Sep, 0 613394259 ALLERGIES No Information ENCOUNTERS Encounter Location Date Diagnosis [address] [address] Nov, [address] [address] Nov, [address] [address] Nov, Non-Hodgkin''s lymphoma, unspecified body region, unspecified non-Hodgkin lymphoma type C85.90 and 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 [address] Nov, [address] [address] Nov, [address] [place] [address] Nov, Non-Hodgkin''s lymphoma, unspecified body region, unspecified non-Hodgkin lymphoma type C85.90 ; 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 [address] [place] [address] Nov, Non-Hodgkin''s lymphoma, unspecified body region, unspecified non- Hodgkin lymphoma type C85.90 [facility] [address] [facility] [id number] [place] [address] Oct, [facility] [id number] [place] [address] Oct, [facility] [id number] [address] Oct, 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 [id number] [address] Sep, [facility] [id number] [address] Aug, [facility] [id number] [address] Aug, [facility] [address] [facility] [id number] [address] Aug, [facility] [id number] [address] Aug, [facility] [id number] [address] Aug, [facility] [id number] [address] Aug, [facility] [address] [facility] [id number] [address] Aug, [facility] [address] [facility] [id number] [address] Aug, [facility] [address] [facility] [id number] [address] Jul, IMMUNIZATIONS Vaccine Route Administration Date Status ZARXIO 480mcg/0.8mL SC Subcutaneous November 15, 2018 Administered SOCIAL HISTORY Never Assessed REASON FOR VISIT Shot PLAN OF CARE VITAL SIGNS MEDICATIONS Unknown Medications RESULTS No Results PROCEDURES Procedure Date Ordered Result Body Site THER/PROPH/DIAG INJ, SC/IM November 15, 2018 INJECTION FILGRASTIM G-CSF 1 CHRISTOPHER November 15, 2018 INSTRUCTIONS MEDICATIONS ADMINISTERED No Known Medications
--- OUTSIDE RECORDS SUMMARY | 2019-03-06 09:07 | XMS REPORT | Encounter Summary ---
Author Author [facility] Organization [facility] Address Unknown Phone Unavailable Care Team Providers Care Irrigator Gravity Flow Name Role Phone Gamaliel Almanzar MD PCP Reason for Visit * Reason Comments Other Encounter Details Date Type Department Care Team Description 02/06/2019 Refill [facility] Yovani Kemp MD Other Cardiovascular [address] [facility] [facility] [address] [place] [address] [address] [place] [address] [phone] Social History Tobacco Use Types Packs/Day Years Used Date Never Smoker Smokeless Tobacco: Never Used Alcohol Use Drinks/Week oz/Week Comments No Sex Assigned at Date Recorded Not on file as of this encounter Miscellaneous Notes * Telephone Encounter - Sasha Bobo RN - 02/14/2019 2:20 PM CDT Took live call from patient's daughter requesting refill of potassium. Reviewed chart, pt not seen for over 1 year, she states that Dr. Kemp said at last vi sit that patient does not need to come back. Informed her that I would send a co upe of months worth, but that if he is no longer being seen here then PCP should continue to fill from here out. She v/u. 90 days sent w/o refills in this encounter Plan of Treatment Not on fileas of this encounter Visit Diagnoses Not on filein this encounter
--- OUTSIDE RECORDS SUMMARY | 2019-03-06 09:07 | XMS REPORT ---
Author Author JOVANNY GRANADOS Organization [facility] Address [address] [facility] [place] [address] Care Team Providers Care Trucker Hand Name Role Phone JOVANNY GRANADOS Unavailable PROBLEMS Type Condition ICD9-CM Code VZY79-ID Code Onset Dates Condition Status SNOMED Code Problem Subacute pansinusitis J01.40 Oct, 0 6531636 Problem Aortic valve disorder 424.1 0 3547435 Problem Aortic valve disorder I35.9 0 3740794 Problem TIA (transient ischemic attack) G45.9 Feb, 0 429628958 Problem Coronary atherosclerosis I25.10 0 025186034 Problem Osteoarthritis of left knee M17.12 Jul, 0 738541919 Problem Ischemic cardiomyopathy I25.5 Aug, 0 891832996 Problem Osteoarthritis of right knee M17.11 Jul, 0 587306876 Problem Pneumonia of right lower lobe due to infectious organism J18.1 Aug, 0 612879400 Problem Status post colonoscopy Z98.890 Sep, 0 291211504351 Problem Old myocardial infarction I25.2 0 8862841 Problem Arrhythmia 427.9 Aug, 0 835406272 Problem Benign prostatic hyperplasia N40.0 Jul, 0 700595270 Problem HTN (hypertension) I10 Sep, 0 08570878 Problem Hyperlipidemia E78.5 Apr, 0 61137116 Problem Subarachnoid hematoma 852.00 Aug, 0 81561542 Problem Bacteremia R78.81 Aug, 0 8669796 Problem 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, 0 103874675 Problem 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 Nov, 0 757196775 Problem History of UTI Z87.440 Aug, 0 3991985984638 Problem Arrhythmia I49.9 Aug, 0 972157748 Problem Cardiomyopathy I42.9 Jul, 0 02815777 Problem Fever R50.9 15 Apr, 2014 0 473738017 Problem Dizziness R42 28 Oct, 2015 0 184800831 Problem 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 13 Nov, 2017 0 831548880 Problem History of deep venous thrombosis Z86.718 Sep, 0 038445592 Problem 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 13 Nov, 2017 0 057435000 Problem S/P total knee replacement V43.65 Sep, 0 178538250 Problem Ischemic cardiomyopathy 414.8 Aug, 0 380148263 Problem 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 14 Mar, 2014 0 Problem Microscopic colitis 558.9 Sep, 0 200350437 Problem TIA (transient ischemic attack) 435.9 Feb, 0 519110543 Problem S/P total knee replacement Z96.659 Sep, 0 753401591963 Problem History of UTI V13.02 14 Aug, 2018 0 6023042157619 Problem Subacute pansinusitis 461.8 Oct, 0 18464469 Problem History of deep venous thrombosis V12.51 Sep, 0 128490434 Problem Subarachnoid hematoma S06.6X9A Aug, 0 82363282 Problem 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 Mar, 0 Problem Cardiomyopathy 425.4 Jul, 0 86145593 Problem Benign prostatic hyperplasia with urinary obstruction 600.01 Sep, 0 516295266 Problem External hemorrhoids without mention of complication K64.4 0 11247256 Problem Benign prostatic hyperplasia 600.00 Jul, 0 994971354 Problem Benign prostatic hyperplasia with urinary obstruction N40.1 Sep, 0 06213005842876 Problem Pneumonia of right lower lobe due to infectious organism 486 Aug, 0 039058322 Problem Generalized osteoarthrosis, involving multiple sites 715.09 0 82324939 Problem Generalized osteoarthrosis, 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 0 15618847 Problem Bacteremia 790.7 Aug, 0 6346147 Problem Post-traumatic subdural hematoma S06.5X9A Aug, 0 84497768 Problem Old myocardial infarction 412 0 8463915 Problem 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 Aug, 0 424379260 Problem External hemorrhoids without mention of complication 455.3 0 98109156 Problem Diverticulitis of colon (without mention of hemorrhage)(562.11) K57.32 0 900759619 Problem 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 Apr, 0 Problem 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 Apr, 0 260730225 Problem 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 Active 816698025 Problem Unilateral inguinal hernia 550.90 Dec, 0 681161273 Problem Osteoarthritis of left knee 715.96 Jul, 0 975660440 Problem Atelectasis of right lung J98.11 Active 47844365 Problem Microscopic colitis K52.839 Sep, 0 362402254 Problem Osteoarthritis of right knee 715.96 Jul, 0 279314600 Problem Dizziness 780.4 Oct, 0 108680608 Problem Unilateral inguinal hernia K40.90 Dec, 0 709101865 Problem Coronary atherosclerosis 414.00 0 955111877 Problem Status post colonoscopy V45.89 Sep, 0 633911676206 Problem Fever 780.60 Apr, 0 779660117 Problem 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 193008223 Problem HTN (hypertension) 401.9 Sep, 0 53504828 Problem Chronic kidney disease, unspecified N18.9 Active 598072209 Problem Non-Hodgkin''s lymphoma, unspecified body region, unspecified non-Hodgkin lymphoma type C85.90 Active 577155545 Problem Hyperlipidemia 272.4 Apr, 0 88003608 ALLERGIES No Information ENCOUNTERS Encounter Location Date Diagnosis [facility] [address] [place] [address] Dec, Atelectasis of right lung J98.11 ; Wheezing R06.2 ; Cough R05 and Sore throat J02.[address] [address] Nov, [address] [address] Nov, [address] [address] Nov, Non-Hodgkin''s lymphoma, unspecified body region, unspecified non-Hodgkin lymphoma type C85.90 and 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 [facility] [address] [address] Nov, Non-Hodgkin''s lymphoma, unspecified body region, unspecified non- Hodgkin lymphoma type C85.90 [facility] [address] [address] Oct, [facility] [address] [address] Oct, [facility] [address] [address] Oct, [facility] [address] [address] Oct, Non-Hodgkin''s lymphoma, unspecified body region, unspecified non- Hodgkin lymphoma type C85.90 ; 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 and 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 [facility] [address] [address] Sep, [facility] [id number] [address] Aug, [facility] [address] [address] Aug, [facility] [address] [address] Aug, [facility] [address] [facility] [id number] [address] 18 Aug, 2018 [facility] [id number] [address] Aug, [facility] [address] [facility] [id number] [address] 14 Aug, 2018 [facility] [id number] [address] 07 Aug, 2018 [facility] [address] [facility] [id number] [address] 05 Aug, 2018 [facility] [id number] [address] Jul, IMMUNIZATIONS Vaccine Route Administration Date Status ZARXIO 480mcg/0.8mL SC Subcutaneous November 16, 2018 Administered SOCIAL HISTORY Never Assessed REASON FOR VISIT Injection. Esther RN PLAN OF CARE VITAL SIGNS MEDICATIONS No Known Medications RESULTS No Results PROCEDURES Procedure Date Ordered Result Body Site THER/PROPH/DIAG INJ, SC/IM November 16, 2018 INJECTION FILGRASTIM G-CSF 1 CHRISTOPHER November 16, 2018 INSTRUCTIONS MEDICATIONS ADMINISTERED No Known Medications MEDICAL (GENERAL) HISTORY Type Description Date Medical History Large Granular Lymphocytic Leukemia Medical History cardiac arrhythmia Medical History Cutaneous Diffuse Large B-Cell Lymphoma Medical History heart stents Medical History Brain Bleed after fall aug 2018 Medical History Mini Stroke Surgical History hernia repair Surgical History right knee replacement Surgical History cardiac stent Hospitalization History see surgeries Hospitalization History pneumonia Hospitalization History Blood Clot
--- OUTSIDE RECORDS SUMMARY | 2019-03-06 09:07 | XMS REPORT ---
Author Author JOVANNY GRANADOS Organization [facility] Address [address] [facility] [place] [address] Care Team Providers Care Access Database Developer Name Role Phone JOVANNY GRANADOS Unavailable PROBLEMS Type Condition ICD9-CM Code RGI13-JD Code Onset Dates Condition Status SNOMED Code Problem Aortic valve disorder I35.9 0 1564766 Problem Coronary atherosclerosis I25.10 0 278446858 Problem Aortic valve disorder 424.1 0 6862265 Problem Arrhythmia I49.9 Aug, 0 124947122 Problem TIA (transient ischemic attack) G45.9 Feb, 0 860356592 Problem Diverticulitis of colon (without mention of hemorrhage)(562.11) K57.32 0 949084760 Problem Pneumonia of right lower lobe due to infectious organism J18.1 Aug, 0 117283020 Problem Osteoarthritis of left knee M17.12 Jul, 0 550970139 Problem Old myocardial infarction I25.2 0 7326006 Problem Benign prostatic hyperplasia N40.0 Jul, 0 889606733 Problem Status post colonoscopy Z98.890 Sep, 0 547554226847 Problem Subacute pansinusitis J01.40 Oct, 0 8514515 Problem Arrhythmia 427.9 Aug, 0 835379360 Problem Bacteremia R78.81 Aug, 0 9553438 Problem HTN (hypertension) I10 Sep, 0 71962506 Problem 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, 2017 0 416156172 Problem Subarachnoid hematoma 852.00 Aug, 0 48476281 Problem History of deep venous thrombosis V12.51 Sep, 0 878638612 Problem 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8 Oct, 0 32436400 Problem 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 13 Nov, 2017 0 602100813 Problem Subarachnoid hematoma S06.6X9A Aug, 0 06438022 Problem Ischemic cardiomyopathy 414.8 Aug, 0 364334759 Problem Cardiomyopathy 425.4 Jul, 0 75871410 Problem Benign prostatic hyperplasia with urinary obstruction N40.1 Sep, 0 31165567586777 Problem Benign prostatic hyperplasia with urinary obstruction 600.01 Sep, 0 372757537 Problem Generalized osteoarthrosis, 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 0 49971117 Problem Benign prostatic hyperplasia 600.00 04 Jul, 2016 0 286011181 Problem 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 Aug, 0 734508351 Problem External hemorrhoids without mention of complication 455.3 0 91224171 Problem Pneumonia of right lower lobe due to infectious organism 486 Aug, 0 771280612 Problem Generalized osteoarthrosis, involving multiple sites 715.09 0 70315413 Problem Osteoarthritis of right knee M17.11 Jul, 0 567154532 Problem Ischemic cardiomyopathy I25.5 Aug, 0 703091789 Problem Post-traumatic subdural hematoma S06.5X9A Aug, 0 30446312 Problem Old myocardial infarction 412 0 0268811 Problem 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 Apr, 0 Problem 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 Apr, 0 030683122 Problem Status post colonoscopy V45.89 Sep, 0 231657159841 Problem Atelectasis of right lung J98.11 Active 08907147 Problem Unilateral inguinal hernia K40.90 Dec, 0 633689526 Problem Coronary atherosclerosis 414.00 0 907970629 Problem Hyperlipidemia, unspecified E78.5 Active 29197714 Problem Unilateral inguinal hernia 550.90 Dec, 0 180807061 Problem Osteoarthritis of left knee 715.96 Jul, 0 208267299 Problem HTN (hypertension) 401.9 Sep, 0 28195290 Problem External hemorrhoids without mention of complication K64.4 0 41602675 Problem Dizziness 780.4 Oct, 0 597644909 Problem 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 705347991 Problem Hyperlipidemia 272.4 Apr, 0 93014391 Problem Chronic kidney disease, unspecified N18.9 Active 140740357 Problem Fever 780.60 Apr, 0 734015867 Problem 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 Active 250934452 Problem Non-Hodgkin''s lymphoma, unspecified body region, unspecified non-Hodgkin lymphoma type C85.90 Active 867139559 Problem Bacteremia 790.7 Aug, 0 2392141 ALLERGIES No Information ENCOUNTERS Encounter Location Date Diagnosis [address] [address] January, [address] [address] January, Non-Hodgkin''s lymphoma, unspecified body region, unspecified non-Hodgkin lymphoma type C85.90 and 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 [address] January, [address] [address] January, Non-Hodgkin''s lymphoma, unspecified body region, unspecified non-Hodgkin lymphoma type C85.90 ; 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 and Hyperlipidemia, unspecified E78.[address] [address] January, [address] [address] Dec, Non-Hodgkin''s lymphoma, unspecified body region, unspecified non-Hodgkin lymphoma type C85.90 [facility] [address] [facility] [id number] [address] Dec, [address] [address] Dec, Non-Hodgkin''s lymphoma, unspecified body region, unspecified non-Hodgkin lymphoma type C85.[address] [address] Dec, Non-Hodgkin''s lymphoma, unspecified body region, unspecified non-Hodgkin lymphoma type C85.90 ; 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 and 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 [address] Dec, Non-Hodgkin''s lymphoma, unspecified body region, unspecified non-Hodgkin lymphoma type C85.90 and 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 [facility] [address] [place] [address] Dec, Atelectasis of right lung J98.11 ; Wheezing R06.2 ; Cough R05 and Sore throat J02.[address] [address] Nov, [address] [address] Nov, [address] [address] Nov, Non-Hodgkin''s lymphoma, unspecified body region, unspecified non-Hodgkin lymphoma type C85.90 and 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 [place] [address] Nov, [address] [place] [address] Nov, [address] [place] [address] Nov, Non-Hodgkin''s lymphoma, unspecified body region, unspecified non-Hodgkin lymphoma type C85.90 ; 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 and 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 [facility] [address] [address] Nov, Non-Hodgkin''s lymphoma, unspecified body region, unspecified non- Hodgkin lymphoma type C85.90 [facility] [address] [address] Oct, [facility] [address] [address] Oct, [facility] [address] [address] Oct, [facility] [address] [address] Oct, Non-Hodgkin''s lymphoma, unspecified body region, unspecified non- Hodgkin lymphoma type C85.90 ; 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 and 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 [facility] [address] [address] Sep, [facility] [address] [address] Aug, [facility] [address] [address] Aug, [facility] [id number] [address] Aug, [facility] [address] [address] Aug, [facility] [address] [facility] [id number] [address] Aug, [facility] [address] [facility] [id number] [address] Aug, [facility] [address] [facility] [id number] [address] Aug, [facility] [address] [facility] [id number], [place] [address] Aug, [facility] [address] [facility] [id number] [address] Jul, IMMUNIZATIONS Vaccine Route Administration Date Status ZARXIO 480mcg/0.8mL SC Subcutaneous November 17, 2018 Administered SOCIAL HISTORY Never Assessed REASON FOR VISIT Injection PLAN OF CARE VITAL SIGNS MEDICATIONS Medication Instructions Dosage Frequency Start Date End Date Duration Status Lactinex - Orally 4 times a day 1 tablet 6h Oct, 90 days Active RESULTS No Results PROCEDURES Procedure Date Ordered Result Body Site THER/PROPH/DIAG INJ, SC/IM November 17, 2018 INJECTION FILGRASTIM G-CSF 1 CHRISTOPHER November 17, 2018 INSTRUCTIONS MEDICATIONS ADMINISTERED No Known Medications [...]
--- OUTSIDE RECORDS SUMMARY | 2019-03-06 09:09 | XMS REPORT | Continuity of Care Document ---
Author Organization Unknown Address Unknown Allergies Active Description Code Type Severity Reaction Onset Reported/Identified Relationship to Patient Clinical Status Yes DOXYCYCLINE HYCLATE (BULK) SEVERE DERMATOLOGICAL - HIV Yes NO KNOWN DRUG ALLERGIES UNKNOWN NO KNOWN DRUG ALLERG Yes [id number] REDUCTASE INHIBITORS SEVERE DERMATOLOGICAL - HIV Yes No Known Drug Allergies [id number] Drug Allergy Unknown N/A 02/05/2010 Medications Medication Packaging Start Date Stop Date Route Dosage Sig IBUPROFEN TAB 400 MG (MOTRIN) MG 09/28/2018 10/05/2018 PRN Q4H ACETAMINOPHEN ORAL TABLET 325mg(Tylenol) [...] IBUPROFEN TAB 400 MG (MOTRIN) MG 09/29/2018 09/29/2018 PRN ONCE Meropenem-0.9% sodium chloride IV piggyback 500mg MG 09/29/2018 10/05/2018 Q6H&0600,1200,1800,2359 Docusate sodium 100mg oral capsule (COLACE) 09/29/2018 10/28/2018 BID&0800,2000 ACYCLOVIR CAP 200 MG (ZOVIRAX) MG 09/29/2018 10/08/2018 BID&0800,2000 NORMAL SALINE 250CC IV BAG INJ 0.9 % (NS 250CC IV BAG) ml 09/29/2018 10/05/2018 Q12H&0800,2000 TAMSULOSIN CAP 0.4 MG (FLOMAX) MG 09/29/2018 10/05/2018 Daily&0900 BISACODYL TAB 5 MG (DULCOLAX) MG 09/29/2018 10/05/2018 PRN Daily FUROSEMIDE TAB 40 MG (LASIX) MG 09/29/2018 10/06/2018 PRN Daily POLYETHYLENE GLYCOL POWDER UD PWD (MIRALAX 17GM UNIT DOSE PAKS) gm 09/29/2018 10/05/2018 Daily&0900 BISACODYL SUPPOS 10 MG (DULCOLAX SUPPOS) MG 09/29/2018 10/05/2018 PRN Daily NICOTINE PATCH PAT 21 MG (NICODERM) MG 09/29/2018 10/05/2018 Daily&0900 NICOTINE PATCH PAT 14 MG (NICODERM) MG 09/29/2018 10/05/2018 Daily&0900 MILK OF ISA WEI ml 09/29/2018 10/28/2018 PRN Daily Meropenem-0.9% sodium [...] 10 MEQ (K-DUR) MEQ 10/01/2018 10/31/2018 TID&0800,1200,1400,2000 ACETAMINOPHEN ORAL TABLET 325mg(Tylenol) MG 11/27/2018 12/27/2018 PRN EVERY 6 Hour ALPRAZOLAM TAB 0.25 MG (XANAX) MG 11/27/2018 12/07/2018 PRN Q6H CLONIDINE TAB 0.1 MG (CATAPRES) MG 11/27/2018 12/04/2018 PRN Q6H CALCIUM CARBONATE TAB 500 MG (TUMS) MG 11/27/2018 12/04/2018 PRN Q6H DIPHENHYDRAMINE CAP 25 MG (BENADRYL) MG 11/27/2018 12/04/2018 PRN Q6H HYDROCODONE/APAP 5MG/325MG TAB 5 MG/325MG (ASHLIE-TAB 5/325) TAB 11/27/2018 12/07/2018 PRN Q6H ACETAMINOPHEN SUPPOS SUP 650 MG (TYLENOL) MG 11/27/2018 12/04/2018 PRN Q4H ONDANSETRON VIAL INJ 4 MG/2CC (ZOFRAN 2CC VIAL) MG 11/27/2018 12/04/2018 PRN Q4H NORMAL SALINE 250CC IV BAG INJ 0.9 % (NS 250CC IV BAG) ml 11/27/2018 12/04/2018 Q12H&0200,1400 ALUM/MAG/SIMETH 30CC LIQ (MYLANTA PLUS) cc 11/27/2018 12/07/2018 PRN Q4H GUAIFENESIN - DM LIQ (ROBITUSSIN DM) MLS 11/27/2018 12/04/2018 PRN Q4H Piperacillin-tazobactam 3.375 Gm IV recon soln (Zosyn) GM 11/27/2018 12/04/2018 Q8H&0000,0800,1600 Docusate sodium 100mg oral capsule (COLACE) 11/27/2018 12/27/2018 PRN BID ALBUTEROL SVN 2.5MG/3CC LIQ 2.5 MG (PROVENTIL JOHN 2.5MG/3CC) MG 11/27/2018 11/29/2018 TID&0800,1400,2000 LACTULOSE SYRUP LIQ 20 GM/30CC (CHRONULAC SYRUP) GM 11/27/2018 12/27/2018 BID&0800,2000 MELATONIN TAB 3 MG (MELATONIN) MG 11/27/2018 12/03/2018 PRN QHS TRAMADOL TAB 50 MG (ULTRAM) MG 11/27/2018 12/07/2018 PRN Q8H POTASSIUM CHLORIDE TAB 20 MEQ (K-DUR) MEQ 11/28/2018 12/27/2018 Daily&0900 TAMSULOSIN CAP 0.4 MG (FLOMAX) MG 11/28/2018 12/04/2018 Daily&0900 BISACODYL TAB 5 MG (DULCOLAX) MG 11/28/2018 12/04/2018 PRN Daily FUROSEMIDE TAB 20 MG (LASIX) MG 11/28/2018 12/04/2018 Daily&0900 POLYETHYLENE GLYCOL POWDER UD PWD (MIRALAX 17GM UNIT DOSE PAKS) gm 11/28/2018 12/04/2018 Daily&0900 BISACODYL SUPPOS 10 MG (DULCOLAX SUPPOS) MG 11/28/2018 12/04/2018 PRN Daily MILK OF MAGNESIA LIQ ml 11/28/2018 12/27/2018 PRN Daily TAMSULOSIN CAP 0.4 MG (FLOMAX) MG 11/28/2018 12/04/2018 QPM&1800 ALBUTEROL SVN 2.5MG/3CC LIQ 2.5 MG (PROVENTIL JOHN 2.5MG/3CC) MG 11/29/2018 12/01/2018 TID&0800,1400,2000 ASPIRIN 81MG CHEWABLE TAB 81 MG (BABY ASPIRIN) MG 11/30/2018 12/29/2018 EVERY 24 Hour&0800 ACETAMINOPHEN ORAL TABLET 325mg(Tylenol) MG 11/30/2018 12/30/2018 PRN EVERY 6 Hour ALPRAZOLAM TAB 0.25 MG (XANAX) MG 11/30/2018 12/10/2018 PRN Q6H CLONIDINE TAB 0.1 MG (CATAPRES) MG 11/30/2018 12/07/2018 PRN Q6H CALCIUM CARBONATE TAB 500 MG (TUMS) MG 11/30/2018 12/07/2018 PRN Q6H DIPHENHYDRAMINE CAP 25 MG (BENADRYL) MG 11/30/2018 12/07/2018 PRN Q6H HYDROCODONE/APAP 5MG/325MG TAB 5 MG/325MG (ASHLIE-TAB 5/325) TAB 11/30/2018 12/10/2018 PRN Q6H ACETAMINOPHEN SUPPOS SUP 650 MG (TYLENOL) MG 11/30/2018 12/07/2018 PRN Q4H ONDANSETRON VIAL INJ 4 MG/2CC (ZOFRAN 2CC VIAL) MG 11/30/2018 12/07/2018 PRN Q4H ALUM/MAG/SIMETH 30CC LIQ (MYLANTA PLUS) cc 11/30/2018 12/10/2018 PRN Q4H GUAIFENESIN - DM LIQ (ROBITUSSIN DM) MLS 11/30/2018 12/07/2018 PRN Q4H TAMSULOSIN CAP 0.4 MG (FLOMAX) MG 11/30/2018 12/29/2018 QPM&1800 NORMAL SALINE 250CC IV BAG INJ 0.9 % (NS 250CC IV BAG) ml 11/30/2018 12/04/2018 Q12H&0600,1800 TRAMADOL TAB 50 MG (ULTRAM) MG 11/30/2018 12/10/2018 PRN Q8H Docusate sodium 100mg oral capsule (COLACE) 11/30/2018 12/30/2018 PRN BID LACTULOSE SYRUP LIQ 20 GM/30CC (CHRONULAC SYRUP) GM 11/30/2018 12/30/2018 BID&0800,2000 MELATONIN TAB 3 MG (MELATONIN) MG 11/30/2018 12/06/2018 PRN QHS AMLODIPINE TAB 5 MG (NORVASC) MG 12/01/2018 12/30/2018 Daily&0800 POTASSIUM CHLORIDE TAB 20 MEQ (K-DUR) MEQ 12/01/2018 12/30/2018 Daily&0800 FUROSEMIDE TAB 20 MG (LASIX) MG 12/01/2018 12/30/2018 Daily&0800 LACTOBACILLUS BULGARIS TAB (LACTINEX BULGARIS) tab 12/01/2018 12/01/2018 ONCE&0830 BISACODYL TAB 5 MG (DULCOLAX) MG 12/01/2018 12/07/2018 PRN Daily POLYETHYLENE GLYCOL POWDER UD PWD (MIRALAX 17GM UNIT DOSE PAKS) gm 12/01/2018 12/07/2018 Daily&0900 MultiVits (Thera M Plus) (upluarci-zocq-ewcrfet) oral tablet TAB 12/01/2018 12/30/2018 Daily&0900 ALPHA TOCOPHERYL CAP 400 IU (VIT E) IU 12/01/2018 12/07/2018 Daily&0900 BISACODYL SUPPOS 10 MG (DULCOLAX SUPPOS) MG 12/01/2018 12/07/2018 PRN Daily CALCIUM POLYCARBOPHIL TAB 625 MG (FIBERCON) MG 12/01/2018 12/31/2018 PRN Daily CYANOCOBALAMIN TAB 1000 MCG (VIT B 12) MCG 12/01/2018 12/07/2018 Daily&0900 MILK OF MAGNESIA LIQ ml 12/01/2018 12/30/2018 PRN Daily LACTOBACILLUS BULGARIS TAB (LACTINEX BULGARIS) tab 12/01/2018 12/11/2018 QID&0800,1200,1700,2200 NORMAL SALINE 250CC IV BAG INJ 0.9 % (NS 250CC IV BAG) ml 12/01/2018 12/03/2018 Q12H&0600,1800 Heparin, FLUSH IV syringe 500 units UNITS 12/01/2018 12/11/2018 BID&0800,2000 BENZONATATE CAP 100 MG (TESSALON) MG 12/02/2018 12/09/2018 PRN Q6H Problems Date Dx Coded Attending Type Code [...] AND SOLID ORGAN SITES 10/02/2018 Nunu Rivers W 276.51 DEHYDRATION 10/02/2018 Nunu Rivers W 288.00 10/02/2018 Nunu Rivers W 600.20 BENIGN LOCALIZED HYPERPLASIA OF PROSTATE WITHOUT URINARY OBSTRUCTION AND OTHER LOWER URINARY TRACT SYMPTOMS (LUTS) 10/02/2018 Nunu Rivers W 780.61 10/02/2018 Nunu Rivers W 782.3 EDEMA 10/02/2018 Nunu Rivers W 785.0 TACHYCARDIA, UNSPECIFIED 10/02/2018 Nunu Rivers W C85.90 NON- [place] LYMPHOMA, UNSPECIFIED, UNSPECIFIED SITE 10/02/2018 Nunu Rivers W D70.9 NEUTROPENIA, UNSPECIFIED 10/02/2018 Nunu Rivers W E86.0 DEHYDRATION 10/02/2018 Nunu Rivers W N40.0 BENIGN PROSTATIC HYPERPLASIA WITHOUT LOWER URINRY TRACT SYMP 10/02/2018 Nunu Rivers W R00.0 TACHYCARDIA, UNSPECIFIED 10/02/2018 Nunu Rivers W R50.81 FEVER PRESENTING WITH CONDITIONS CLASSIFIED ELSEWHERE 10/02/2018 Nunu Rivers W R60.0 LOCALIZED EDEMA 10/04/2018 DAVID LEACH, SORAIDA [...] LYMPHOMA, LYMPH NOD 11/13/2018 DOROTEO LEACH, SANJUANITA Lugo Ot 202.80 OTH LYMPHOMAS EXTRANODAL SOLID ORGAN U 11/20/2018 DAVID LEACH, SORAIDA V Ot D64.81 ANEMIA DUE TO ANTINEOPLASTIC CHEMOTHERAP 11/24/2018 DAVID LEACH, SORAIDA V Ot D64.81 ANEMIA DUE TO ANTINEOPLASTIC CHEMOTHERAP 11/27/2018 KEAKASH STANFORD MICHELLE T Ot C91.00 ACUTE LYMPHOBLASTIC LEUKEMIA NOT HAVING 11/27/2018 RACHEL KOWALSKI DOINA T Ot 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 11/27/2018 RACHEL KOWALSKI DOINA T Ot 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, 11/27/2018 RACHEL KOWALSKI DOINA T Ot R05 COUGH 11/27/2018 MEGHANA STANFORD MICHELLE T Ot R50.9 FEVER, UNSPECIFIED 11/27/2018 MEGHANA STANFORD MICHELLE T Ot R53.1 WEAKNESS 11/27/2018 MEGHANA STANFORD MICHELLE T Ot Z79.82 SENIOR CARE (CURRENT) USE OF ASPIRIN 11/30/2018 Nunu Rivers W 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, UNSPECIFIED SITE, EXTRANODAL AND SOLID ORGAN SITES 11/30/2018 Nunu Rivers W 204.10 11/30/2018 Nunu Rivers W 288.00 NEUTROPENIA, UNSPECIFIED 11/30/2018 Nunu Rivers W 426.3 OTHER LEFT BUNDLE BRANCH BLOCK 11/30/2018 Nunu Rivers W 486 11/30/2018 Nunu Rivers W 600.20 BENIGN LOCALIZED HYPERPLASIA OF PROSTATE WITHOUT URINARY OBSTRUCTION AND OTHER LOWER URINARY TRACT SYMPTOMS (LUTS) 11/30/2018 Nunu Rivers W 780.60 11/30/2018 Nunu Rivers W 782.3 EDEMA 11/30/2018 Nunu Rivers C85.90 NON- [place] LYMPHOMA, UNSPECIFIED, UNSPECIFIED SITE 11/30/2018 Nunu Rivers 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 NOT ACHIEVE REMIS 11/30/2018 Nunu Rivers W D70.9 NEUTROPENIA, UNSPECIFIED 11/30/2018 Nunu Rivers W I44.7 LEFT BUNDLE-BRANCH BLOCK, UNSPECIFIED 11/30/2018 Nunu Rivers W J18.9 PNEUMONIA, UNSPECIFIED ORGANISM 11/30/2018 Nunu Rivers W N40.0 BENIGN PROSTATIC HYPERPLASIA WITHOUT LOWER URINRY TRACT SYMP 11/30/2018 Nunu Rivers W R50.9 FEVER, UNSPECIFIED 11/30/2018 Nunu Rivers W R60.0 LOCALIZED EDEMA 12/03/2018 KEITHLY DO, MICHELLE T Ot C91.00 ACUTE LYMPHOBLASTIC LEUKEMIA NOT HAVING 12/03/2018 KEITHLY DO, MICHELLE T Ot 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, 12/03/2018 KEITHLY DO, MICHELLE T Ot R05 COUGH 12/03/2018 KEITHLY DO, MICHELLE T Ot R50.9 FEVER, UNSPECIFIED 12/03/2018 KEITHLY DO, MICHELLE T Ot R53.1 WEAKNESS 12/03/2018 KEITHLY DO, MICHELLE T Ot Z79.82 SENIOR CARE (CURRENT) USE OF ASPIRIN 12/04/2018 Nunu Rivers W 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, UNSPECIFIED SITE, EXTRANODAL AND SOLID ORGAN SITES 12/04/2018 Nnuu Rivers W 204.10 12/04/2018 Nunu Rivers W 276.8 HYPOPOTASSEMIA 12/04/2018 Nunu Rivers W 426.3 OTHER LEFT BUNDLE BRANCH BLOCK 12/04/2018 Nunu Rivers W 486 12/04/2018 Nunu Rivers W 600.20 BENIGN LOCALIZED HYPERPLASIA OF PROSTATE WITHOUT URINARY OBSTRUCTION AND OTHER LOWER URINARY TRACT SYMPTOMS (LUTS) 12/04/2018 Nunu Rivers W 780.60 12/04/2018 Nunu Rivers W 782.3 EDEMA 12/04/2018 Nunu Rivers W C85.90 NON- [place] LYMPHOMA, UNSPECIFIED, UNSPECIFIED SITE 12/04/2018 Nunu Rivers W 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 NOT ACHIEVE REMIS 12/04/2018 Nunu Rivers W E87.6 HYPOKALEMIA 12/04/2018 Nunu Rivers W I44.7 LEFT BUNDLE-BRANCH BLOCK, UNSPECIFIED 12/04/2018 Nunu Rivers W J18.9 PNEUMONIA, UNSPECIFIED ORGANISM 12/04/2018 Nunu Rivers W N40.0 BENIGN PROSTATIC HYPERPLASIA WITHOUT LOWER URINRY TRACT SYMP 12/04/2018 Nunu Rivers W R50.9 FEVER, UNSPECIFIED 12/04/2018 Nunu Rivers W R60.0 LOCALIZED EDEMA 12/06/2018 DAVID LEACH SORAIDA V Ot D64.81 ANEMIA DUE TO ANTINEOPLASTIC CHEMOTHERAP 12/11/2018 DAVID LEACH SORAIDA V Ot D64.81 ANEMIA DUE TO ANTINEOPLASTIC CHEMOTHERAP 12/11/2018 DAVID LEACH SORAIDA V Ot T45.1X5A ADVERSE EFFECT OF ANTINEOPLASTIC AND IMM 12/11/2018 DAVID LEACH SORAIDA V Ot C83.38 DIFFUSE LARGE B-CELL LYMPHOMA, LYMPH NOD 12/11/2018 DAVID LEACH SORAIDA V Ot D64.81 ANEMIA DUE TO ANTINEOPLASTIC CHEMOTHERAP 12/11/2018 DAVID LEACH SORAIDA V Ot D64.81 ANEMIA DUE TO ANTINEOPLASTIC CHEMOTHERAP 12/11/2018 DAVID LEACH SORAIDA V Ot D64.81 ANEMIA DUE TO ANTINEOPLASTIC CHEMOTHERAP 12/11/2018 DAVID LEACH SORAIDA V Ot T45.1X5A ADVERSE EFFECT OF ANTINEOPLASTIC AND IMM 12/13/2018 DAVID LEACH SORAIDA V Ot D64.81 ANEMIA DUE TO ANTINEOPLASTIC CHEMOTHERAP 12/13/2018 DAVID LEACH SORAIDA V Ot T45.1X5A ADVERSE EFFECT OF ANTINEOPLASTIC AND IMM 01/03/2019 DAVID LEACH SORAIDA V Ot D64.81 ANEMIA DUE TO ANTINEOPLASTIC CHEMOTHERAP 01/29/2019 JOVANNY GRANADOS MD Ot C85.90 NON-HODGKIN LYMPHOMA, UNSPECIFIED, UNSPE 01/29/2019 JOVANNY GRANADOS MD Ot D63.1 ANEMIA IN CHRONIC KIDNEY DISEASE 01/29/2019 JOVANNY GRANADOS MD Ot E78.5 HYPERLIPIDEMIA, UNSPECIFIED 01/29/2019 JOVANNY GRANADOS MD Ot N18.9 CHRONIC KIDNEY DISEASE, UNSPECIFIED 02/09/2019 JOVANNY GRANADOS MD Ot C85.90 NON-HODGKIN LYMPHOMA, UNSPECIFIED, UNSPE 02/09/2019 JOVANNY GRANADOS MD Ot D63.1 ANEMIA IN CHRONIC KIDNEY DISEASE 02/09/2019 JOVANNY GRANADOS MD Ot E78.5 HYPERLIPIDEMIA, UNSPECIFIED 02/09/2019 JOVANNY GRANADOS MD Ot N18.9 CHRONIC KIDNEY DISEASE, UNSPECIFIED 02/11/2019 DAVID LEACH SORAIDA V Ot D64.81 ANEMIA DUE TO ANTINEOPLASTIC CHEMOTHERAP 02/13/2019 JOVANNY GRANADOS MD Ot C85.90 NON-HODGKIN LYMPHOMA, UNSPECIFIED, UNSPE 02/13/2019 JOVANNY GRANADOS MD Ot D63.1 ANEMIA IN CHRONIC KIDNEY DISEASE 02/13/2019 JOVANNY GRANADOS MD Ot E78.5 HYPERLIPIDEMIA, UNSPECIFIED 02/13/2019 JOVANNY GRANADOS MD Ot N18.9 CHRONIC KIDNEY DISEASE, UNSPECIFIED 02/13/2019 DAVID LEACH SORAIDA V Ot D64.81 ANEMIA DUE TO ANTINEOPLASTIC CHEMOTHERAP 02/15/2019 JOVANNY GRANADOS MD Ot C85.90 NON-HODGKIN LYMPHOMA, UNSPECIFIED, UNSPE 02/15/2019 JOVANNY GRANADOS MD Ot D63.1 ANEMIA IN CHRONIC KIDNEY DISEASE 02/15/2019 JOVANNY GRANADOS MD Ot E78.5 HYPERLIPIDEMIA, UNSPECIFIED 02/15/2019 JOVANNY GRANADOS MD Ot N18.9 CHRONIC KIDNEY DISEASE, UNSPECIFIED 02/16/2019 DAVID LEACH SORAIDA V Ot D64.81 ANEMIA DUE TO ANTINEOPLASTIC CHEMOTHERAP 02/18/2019 DAVID LEACH SORAIDA V Ot D64.81 ANEMIA DUE TO ANTINEOPLASTIC CHEMOTHERAP 02/18/2019 DAVID LEACH SORAIDA V Ot T45.1X5A ADVERSE EFFECT OF ANTINEOPLASTIC AND IMM 02/19/2019 DAVID LEACH SORAIDA V Ot D64.81 ANEMIA DUE TO ANTINEOPLASTIC CHEMOTHERAP 02/19/2019 DAVID LEACH SORAIDA V Ot D64.81 ANEMIA DUE TO ANTINEOPLASTIC CHEMOTHERAP 02/19/2019 DAVID LEACH SORAIDA V Ot T45.1X5A ADVERSE EFFECT OF ANTINEOPLASTIC AND IMM 02/19/2019 DAVID LEACH SORAIDA V Ot D64.81 ANEMIA DUE TO ANTINEOPLASTIC CHEMOTHERAP 02/19/2019 DAVID LEACH, SORAIDA V Ot T45.1X5A ADVERSE EFFECT OF ANTINEOPLASTIC AND IMM 02/25/2019 DAVID LEACH, SORAIDA V Ot D64.81 ANEMIA DUE TO ANTINEOPLASTIC CHEMOTHERAP 02/25/2019 DAVID LEACH, SORAIDA V Ot T45.1X5A ADVERSE EFFECT OF ANTINEOPLASTIC AND IMM Procedures There is no data. Results Test Result Range Comprehensive Metabolic Panel - 09/29/18 05:28 Albumin [...] 32.2 g/dL 32.0-36.0 MCV 110.0 fL 80.0-97.0 Appling% 5.6 % 0.0-12.0 MPV 10.8 fL 7.4-10.0 John% 91.9 % 37.0-80.0 Plt 150 K/uL 150-400 RBC 3.59 M/uL 4.20-5.40 RDW 15.7 % 11.6-14.8 WBC 15.32 K/uL 5.00-10.00 John 14.07 K/uL 2.00-6.90 Appling 0.9 K/uL 0.0-0.9 Baso 0.0 K/uL 0.0-0.2 [...] Automated erythrocyte mean corpuscular hemoglobin concentration measurement (mass/volume) 33 g/dL 32-36 Automated erythrocyte distribution width ratio 15.3 % 10.0- 14.5 Automated blood platelet count (count/volume) 104 10*3/uL [...] Blood monocytes automated count (number/volume) 0.6 10*3 0.0- 1.0 Automated eosinophil count 0.2 10*3/uL 0.0-0.3 Automated [...] Automated erythrocyte mean corpuscular hemoglobin concentration measurement (mass/volume) 33 g/dL 32-36 Automated erythrocyte distribution width ratio 15.1 % 10.0- 14.5 Automated blood platelet count (count/volume) 112 10*3/uL [...] Blood monocytes automated count (number/volume) 0.7 10*3 0.0- 1.0 Automated eosinophil count 0.5 10*3/uL 0.0-0.3 Automated [...] Automated erythrocyte mean corpuscular hemoglobin concentration measurement (mass/volume) 33 g/dL 32-36 Automated erythrocyte distribution width ratio 15.1 % 10.0- 14.5 Automated blood platelet count (count/volume) 137 10*3/uL [...] Blood monocytes automated count (number/volume) 0.7 10*3 0.0- 1.0 Automated eosinophil count 0.4 10*3/uL 0.0-0.3 Automated [...] Automated erythrocyte mean corpuscular hemoglobin concentration measurement (mass/volume) 33 g/dL 32-36 Automated erythrocyte distribution width ratio 15.5 % 10.0- 14.5 Automated blood platelet count (count/volume) 77 10*3/uL 130- 400 Automated blood platelet mean volume measurement 10.8 [...] Blood monocytes automated count (number/volume) 0.9 10*3 0.0- 1.0 Automated eosinophil count 0.2 10*3/uL 0.0-0.3 Automated blood basophil count (count/volume) 0.0 10*3/uL 0.0-0.1 Influenza virus A and B antigen detection - 11/27/18 09:35 FLU RESULT NEGATIVE FOR INFLUENZA A AND B ANTIGENS BY [facility] Complete blood count (CBC) with automated white blood cell (WBC) differential - 11/27/18 09:45 Blood leukocytes automated count (number/volume) 7.8 10*3/uL 4.3-11.0 Blood erythrocytes automated count (number/volume) 3.10 10*6/uL 4.35-5.85 Venous blood hemoglobin measurement (mass/volume) 10.9 g/dL 13.3-17.7 Blood hematocrit (volume fraction) 33 % 40-54 Automated erythrocyte mean corpuscular volume 106 [foz_us] 80-99 Automated erythrocyte mean corpuscular hemoglobin (mass per erythrocyte) 35 pg 25-34 Automated erythrocyte mean corpuscular hemoglobin concentration measurement (mass/volume) 33 g/dL 32-36 Automated erythrocyte distribution width ratio 15.5 % 10.0- 14.5 Automated blood platelet count (count/volume) 150 10*3/uL 130-400 Automated blood platelet mean volume measurement 10.4 [foz_us] 7.4-10.4 Automated blood neutrophils/100 leukocytes 66 % 42-75 Automated blood lymphocytes/100 leukocytes 19 % 12-44 Blood monocytes/100 leukocytes 14 % 0-12 Automated blood eosinophils/100 leukocytes 0 % 0-10 Automated blood basophils/100 leukocytes 0 % 0-10 Blood neutrophils automated count (number/volume) 5.1 10*3 1.8-7.8 Blood lymphocytes automated count (number/volume) 1.5 10*3 1.0-4.0 Blood monocytes automated count (number/volume) 1.1 10*3 0.0- 1.0 Automated eosinophil count 0.0 10*3/uL 0.0-0.3 Automated blood basophil count (count/volume) 0.0 10*3/uL 0.0-0.1 Blood lactic acid measurement (moles/volume) - 11/27/18 09:45 Blood lactic acid measurement (moles/volume) 1.88 mmol/L 0.50- 2.00 Comprehensive metabolic panel - 11/27/18 09:45 Serum or plasma sodium measurement (moles/volume) 138 mmol/L 135-145 Serum or plasma potassium measurement (moles/volume) 3.9 mmol/L 3.6-5.0 Serum or plasma chloride measurement (moles/volume) 99 mmol/L 98-107 Carbon dioxide 29 mmol/L 21-32 Serum or plasma anion gap determination (moles/volume) 10 mmol/L 5-14 Serum or plasma urea nitrogen measurement (mass/volume) 18 mg/dL 7-18 Serum or plasma creatinine measurement (mass/volume) 0.96 mg/dL 0.60-1.30 Serum or plasma urea nitrogen/creatinine mass ratio 19 NRG Serum or plasma creatinine measurement with calculation of estimated glomerular filtration rate > NRG Serum or plasma glucose measurement (mass/volume) 145 mg/dL 70-105 Serum or plasma calcium measurement (mass/volume) 9.1 mg/dL 8.5-10.1 Serum or plasma total bilirubin measurement (mass/volume) 0.6 mg/dL 0.1-1.0 Serum or plasma alkaline phosphatase measurement (enzymatic activity/volume) 80 U/L 40-136 Serum or plasma aspartate aminotransferase measurement (enzymatic activity/volume) 27 U/L 5-34 Serum or plasma alanine aminotransferase measurement (enzymatic activity/volume) 23 U/L 0-55 Serum or plasma protein measurement (mass/volume) 5.3 g/dL 6.4-8.2 Serum or plasma albumin measurement (mass/volume) 3.5 g/dL 3.2-4.5 CALCIUM CORRECTED 9.5 mg/dL 8.5-10.1 TROPONIN T - 11/27/18 09:45 TROPONIN T 29 % <=15 PROCALCITONIN (PCT) - 11/27/18 09:45 PROCALCITONIN (PCT) 0.23 ng/mL <0.10 Bacterial blood culture - 11/27/18 09:45 Bacterial blood culture NG NRG Complete urinalysis with reflex to culture - 11/27/18 10:30 Urine color determination YELLOW NRG Urine clarity determination CLEAR NRG Urine pH measurement by test strip 6.5 5-9 Specific gravity of urine by test strip 1.010 1.016-1.022 Urine protein assay by test strip, semi-quantitative NEGATIVE NEGATIVE Urine glucose detection by automated test strip NEGATIVE NEGATIVE Erythrocytes detection in urine sediment by light microscopy NEGATIVE NEGATIVE Urine ketones detection by automated test strip NEGATIVE NEGATIVE Urine nitrite detection by test strip NEGATIVE NEGATIVE Urine total bilirubin detection by test strip NEGATIVE NEGATIVE Urine urobilinogen measurement by automated test strip (mass/volume) 0.2 mg/dL NORMAL Urine leukocyte esterase detection by dipstick NEGATIVE NEGATIVE Automated urine sediment erythrocyte count by microscopy (number/high power field) NONE NRG Automated urine sediment leukocyte count by microscopy (number/high power field) NONE NRG Bacteria detection in urine sediment by light microscopy NONE NRG Squamous epithelial cells detection in urine sediment by light microscopy RARE NRG Crystals detection in urine sediment by light microscopy NONE NRG Casts detection in urine sediment by light microscopy NONE NRG Mucus detection in urine sediment by light microscopy NEGATIVE NRG Complete urinalysis with reflex to culture NO NRG Bacterial blood culture - 11/27/18 10:30 Bacterial blood culture NG NRG Vancomycin Trough - 11/28/18 12:48 Vanco Trough 10.6 ug/mL 10.0-20.0 Comprehensive Metabolic Panel - 11/29/18 05:00 Albumin 3.0 g/dL 3.6-5.1 ALP 67 U/L 35-130 ALT 20 U/L 6-45 Anion Gap 12 6-14 AST 21 U/L 2-40 BUN 14 mg/dL 5-25 Calcium 8.1 mg/dL 8.3-10.4 Chloride 107 mmol/L 95-114 CO2 25 mEq/L 22-33 Creat 0.78 mg/dL 0.50-1.50 eGFR 94 mL/min/1.73m2 >59 Globulin 1.0 g/dL 2.3-3.5 Glucose 89 mg/dL 70-110 Osmo 289 280-295 Potassium 3.5 mmol/L 3.5-5.3 Sodium 140 mmol/L 134-148 TBil 0.5 mg/dL 0.2-1.2 TP 4.0 g/dL 6.0-8.3 Vancomycin Trough - 11/30/18 01:00 Vanco Trough 14.8 ug/mL 10.0-20.0 Comprehensive Metabolic Panel - 11/30/18 05:30 Albumin 2.8 g/dL 3.6-5.1 ALP 86 U/L 35-130 ALT 20 U/L 6-45 Anion Gap 11 6-14 AST 24 U/L 2-40 BUN 10 mg/dL 5-25 Calcium 7.9 mg/dL 8.3-10.4 Chloride 108 mmol/L 95-114 CO2 23 mEq/L 22-33 Creat 0.76 mg/dL 0.50-1.50 eGFR 97 mL/min/1.73m2 >59 Globulin 1.3 g/dL 2.3-3.5 Glucose 88 mg/dL 70-110 Osmo 286 280-295 Potassium 3.4 mmol/L 3.5-5.3 Sodium 139 mmol/L 134-148 TBil 0.4 mg/dL 0.2-1.2 TP 4.1 g/dL 6.0-8.3 Comprehensive Metabolic Panel - 12/01/18 05:25 Albumin 2.9 g/dL 3.6-5.1 ALP 96 U/L 35-130 ALT 24 U/L 6-45 Anion Gap 10 6-14 AST 27 U/L 2-40 BUN 7 mg/dL 5-25 Calcium 8.1 mg/dL 8.3-10.4 Chloride 108 mmol/L 95-114 CO2 25 mEq/L 22-33 Creat 0.74 mg/dL 0.50-1.50 eGFR 100 mL/min/1.73m2 >59 Globulin 1.2 g/dL 2.3-3.5 Glucose 84 mg/dL 70-110 Osmo 287 280-295 Potassium 3.1 mmol/L 3.5-5.3 Sodium 140 mmol/L 134-148 TBil 0.4 mg/dL 0.2-1.2 TP 4.1 g/dL 6.0-8.3 Vancomycin Trough - 12/01/18 17:00 Vanco Trough 17.5 ug/mL 10.0-20.0 Comprehensive Metabolic Panel - 12/02/18 05:00 Albumin 2.9 g/dL 3.6-5.1 ALP 101 U/L 35-130 ALT 28 U/L 6-45 Anion Gap 12 6-14 AST 33 U/L 2-40 BUN 8 mg/dL 5-25 Calcium 8.0 mg/dL 8.3-10.4 Chloride 107 mmol/L 95-114 CO2 25 mEq/L 22-33 Creat 0.82 mg/dL 0.50-1.50 eGFR 88 mL/min/1.73m2 >59 Globulin 1.3 g/dL 2.3-3.5 Glucose 85 mg/dL 70-110 Osmo 289 280-295 Potassium 3.2 mmol/L 3.5-5.3 Sodium 141 mmol/L 134-148 TBil 0.4 mg/dL 0.2-1.2 TP 4.2 g/dL 6.0-8.3 Comprehensive Metabolic Panel - 12/03/18 05:30 Albumin 2.9 g/dL 3.6-5.1 ALP 103 U/L 35-130 ALT 28 U/L 6-45 Anion Gap 13 6-14 AST 33 U/L 2-40 BUN 8 mg/dL 5-25 Calcium 8.1 mg/dL 8.3-10.4 Chloride 106 mmol/L 95-114 CO2 25 mEq/L 22-33 Creat 0.80 mg/dL 0.50-1.50 eGFR 91 mL/min/1.73m2 >59 Globulin 1.3 g/dL 2.3-3.5 Glucose 81 mg/dL 70-110 Osmo 289 280-295 Potassium 3.2 mmol/L 3.5-5.3 Sodium 141 mmol/L 134-148 TBil 0.4 mg/dL 0.2-1.2 TP 4.2 g/dL 6.0-8.3 Vancomycin Trough - 12/03/18 19:00 Vanco Trough 14.9 ug/mL 10.0-20.0 Comprehensive Metabolic Panel - 12/04/18 07:15 Albumin 3.2 g/dL 3.6-5.1 ALP 103 U/L 35-130 ALT 26 U/L 6-45 Anion Gap 12 6-14 AST 32 U/L 2-40 BUN 9 mg/dL 5-25 Calcium 8.3 mg/dL 8.3-10.4 Chloride 107 mmol/L 95-114 CO2 26 mEq/L 22-33 Creat 0.85 mg/dL 0.50-1.50 eGFR 85 mL/min/1.73m2 >59 Globulin 1.3 g/dL 2.3-3.5 Glucose 84 mg/dL 70-110 Osmo 291 280-295 Potassium 3.2 mmol/L 3.5-5.3 Sodium 142 mmol/L 134-148 TBil 0.4 mg/dL 0.2-1.2 TP 4.5 g/dL 6.0-8.3 Complete blood count (CBC) with automated white blood cell (WBC) differential - 12/11/18 09:55 Blood leukocytes automated count (number/volume) 5.9 10*3/uL 4.3-11.0 Blood erythrocytes automated count (number/volume) 3.35 10*6/uL 4.35-5.85 Venous blood hemoglobin measurement (mass/volume) 11.4 g/dL 13.3-17.7 Blood hematocrit (volume fraction) 35 % 40-54 Automated erythrocyte mean corpuscular volume 105 [foz_us] 80-99 Automated erythrocyte mean corpuscular hemoglobin (mass per erythrocyte) 34 pg 25-34 Automated erythrocyte mean corpuscular hemoglobin concentration measurement (mass/volume) 33 g/dL 32-36 Automated erythrocyte distribution width ratio 15.1 % 10.0- 14.5 Automated blood platelet count (count/volume) 174 10*3/uL 130-400 Automated blood platelet mean volume measurement 11.1 [foz_us] 7.4-10.4 Automated blood neutrophils/100 leukocytes 48 % 42-75 Automated blood lymphocytes/100 leukocytes 30 % 12-44 Blood monocytes/100 leukocytes 12 % 0-12 Automated blood eosinophils/100 leukocytes 8 % 0-10 Automated blood basophils/100 leukocytes 1 % 0-10 Blood neutrophils automated count (number/volume) 2.9 10*3 1.8-7.8 Blood lymphocytes automated count (number/volume) 1.8 10*3 1.0-4.0 Blood monocytes automated count (number/volume) 0.7 10*3 0.0- 1.0 Automated eosinophil count 0.5 10*3/uL 0.0-0.3 Automated blood basophil count (count/volume) 0.0 10*3/uL 0.0-0.1 Complete blood count (CBC) with automated white blood cell (WBC) differential - 12/18/18 08:56 Blood leukocytes automated count (number/volume) 7.4 10*3/uL 4.3-11.0 Blood erythrocytes automated count (number/volume) 3.35 10*6/uL 4.35-5.85 Venous blood hemoglobin measurement (mass/volume) 11.5 g/dL 13.3-17.7 Blood hematocrit (volume fraction) 36 % 40-54 Automated erythrocyte mean corpuscular volume 106 [foz_us] 80-99 Automated erythrocyte mean corpuscular hemoglobin (mass per erythrocyte) 34 pg 25-34 Automated erythrocyte mean corpuscular hemoglobin concentration measurement (mass/volume) 34 g/dL 32-36 Automated erythrocyte distribution width ratio 15.1 % 10.0- 14.5 Automated blood platelet count (count/volume) 109 10*3/uL 130-400 Automated blood platelet mean volume measurement 11.5 [foz_us] 7.4-10.4 Automated blood neutrophils/100 leukocytes 50 % 42-75 Automated blood lymphocytes/100 leukocytes 23 % 12-44 Blood monocytes/100 leukocytes 17 % 0-12 Automated blood eosinophils/100 leukocytes 9 % 0-10 Automated blood basophils/100 leukocytes 1 % 0-10 Blood neutrophils automated count (number/volume) 3.7 10*3 1.8-7.8 Blood lymphocytes automated count (number/volume) 1.7 10*3 1.0-4.0 Blood monocytes automated count (number/volume) 1.3 10*3 0.0- 1.0 Automated eosinophil count 0.7 10*3/uL 0.0-0.3 Automated blood basophil count (count/volume) 0.1 10*3/uL 0.0-0.1 Complete blood count (CBC) with automated white blood cell (WBC) differential - 12/25/18 08:43 Blood leukocytes automated count (number/volume) 7.2 10*3/uL 4.3-11.0 Blood erythrocytes automated count (number/volume) 3.27 10*6/uL 4.35-5.85 Venous blood hemoglobin measurement (mass/volume) 11.3 g/dL 13.3-17.7 Blood hematocrit (volume fraction) 34 % 40-54 Automated erythrocyte mean corpuscular volume 105 [foz_us] 80-99 Automated erythrocyte mean corpuscular hemoglobin (mass per erythrocyte) 35 pg 25-34 Automated erythrocyte mean corpuscular hemoglobin concentration measurement (mass/volume) 33 g/dL 32-36 Automated erythrocyte distribution width ratio 15.3 % 10.0- 14.5 Automated blood platelet count (count/volume) 110 10*3/uL 130-400 Automated blood platelet mean volume measurement 10.6 [foz_us] 7.4-10.4 Automated blood neutrophils/100 leukocytes 52 % 42-75 Automated blood lymphocytes/100 leukocytes 25 % 12-44 Blood monocytes/100 leukocytes 10 % 0-12 Automated blood eosinophils/100 leukocytes 12 % 0-10 Automated blood basophils/100 leukocytes 1 % 0-10 Blood neutrophils automated count (number/volume) 3.7 10*3 1.8-7.8 Blood lymphocytes automated count (number/volume) 1.8 10*3 1.0-4.0 Blood monocytes automated count (number/volume) 0.7 10*3 0.0- 1.0 Automated eosinophil count 0.8 10*3/uL 0.0-0.3 Automated blood basophil count (count/volume) 0.1 10*3/uL 0.0-0.1 Complete blood count (CBC) with automated white blood cell (WBC) differential - 01/01/19 08:45 Blood leukocytes automated count (number/volume) 1.7 10*3/uL 4.3-11.0 Blood erythrocytes automated count (number/volume) 5.01 10*6/uL 4.35-5.85 Venous blood hemoglobin measurement (mass/volume) 17.2 g/dL 13.3-17.7 Blood hematocrit (volume fraction) 52 % 40-54 Automated erythrocyte mean corpuscular volume 104 [foz_us] 80-99 Automated erythrocyte mean corpuscular hemoglobin (mass per erythrocyte) 34 pg 25-34 Automated erythrocyte mean corpuscular hemoglobin concentration measurement (mass/volume) 33 g/dL 32-36 Automated erythrocyte distribution width ratio 15.9 % 10.0- 14.5 Automated blood platelet count (count/volume) 65 10*3/uL 130- 400 Automated blood platelet mean volume measurement 11.2 [foz_us] 7.4-10.4 Automated blood neutrophils/100 leukocytes 49 % 42-75 Automated blood lymphocytes/100 leukocytes 24 % 12-44 Blood monocytes/100 leukocytes 12 % 0-12 Automated blood eosinophils/100 leukocytes 13 % 0-10 Automated blood basophils/100 leukocytes 2 % 0-10 Blood neutrophils automated count (number/volume) 0.8 10*3 1.8-7.8 Blood lymphocytes automated count (number/volume) 0.4 10*3 1.0-4.0 Blood monocytes automated count (number/volume) 0.2 10*3 0.0- 1.0 Automated eosinophil count 0.2 10*3/uL 0.0-0.3 Automated blood basophil count (count/volume) 0.1 10*3/uL 0.0-0.1 Complete blood count (CBC) with automated white blood cell (WBC) differential - 01/08/19 08:52 Blood leukocytes automated count (number/volume) 5.7 10*3/uL 4.3-11.0 Blood erythrocytes automated count (number/volume) 3.14 10*6/uL 4.35-5.85 Venous blood hemoglobin measurement (mass/volume) 10.9 g/dL 13.3-17.7 Blood hematocrit (volume fraction) 33 % 40-54 Automated erythrocyte mean corpuscular volume 105 [foz_us] 80-99 Automated erythrocyte mean corpuscular hemoglobin (mass per erythrocyte) 35 pg 25-34 Automated erythrocyte mean corpuscular hemoglobin concentration measurement (mass/volume) 33 g/dL 32-36 Automated erythrocyte distribution width ratio 17.0 % 10.0- 14.5 Automated blood platelet count (count/volume) 118 10*3/uL 130-400 Automated blood platelet mean volume measurement 9.6 [foz_us] 7.4-10.4 Automated blood neutrophils/100 leukocytes 58 % 42-75 Automated blood lymphocytes/100 leukocytes 20 % 12-44 Blood monocytes/100 leukocytes 10 % 0-12 Automated blood eosinophils/100 leukocytes 6 % 0-10 Automated blood basophils/100 leukocytes 2 % 0-10 Blood neutrophils automated count (number/volume) 3.3 10*3 1.8-7.8 Blood lymphocytes automated count (number/volume) 1.2 10*3 1.0-4.0 Blood monocytes automated count (number/volume) 0.6 10*3 0.0- 1.0 Automated eosinophil count 0.3 10*3/uL 0.0-0.3 Automated blood basophil count (count/volume) 0.1 10*3/uL 0.0-0.1 Complete blood count (CBC) with automated white blood cell (WBC) differential - 01/15/19 08:45 Blood leukocytes automated count (number/volume) 3.8 10*3/uL 4.3-11.0 Blood erythrocytes automated count (number/volume) 3.16 10*6/uL 4.35-5.85 Venous blood hemoglobin measurement (mass/volume) 11.1 g/dL 13.3-17.7 Blood hematocrit (volume fraction) 34 % 40-54 Automated erythrocyte mean corpuscular volume 107 [foz_us] 80-99 Automated erythrocyte mean corpuscular hemoglobin (mass per erythrocyte) 35 pg 25-34 Automated erythrocyte mean corpuscular hemoglobin concentration measurement (mass/volume) 33 g/dL 32-36 Automated erythrocyte distribution width ratio 16.6 % 10.0- 14.5 Automated blood platelet count (count/volume) 103 10*3/uL 130-400 Automated blood platelet mean volume measurement 10.9 [foz_us] 7.4-10.4 Automated blood neutrophils/100 leukocytes 52 % 42-75 Automated blood lymphocytes/100 leukocytes 28 % 12-44 Blood monocytes/100 leukocytes 5 % 0-12 Automated blood eosinophils/100 leukocytes 13 % 0-10 Automated blood basophils/100 leukocytes 2 % 0-10 Blood neutrophils automated count (number/volume) 2.0 10*3 1.8-7.8 Blood lymphocytes automated count (number/volume) 1.1 10*3 1.0-4.0 Blood monocytes automated count (number/volume) 0.2 10*3 0.0- 1.0 Automated eosinophil count 0.5 10*3/uL 0.0-0.3 Automated blood basophil count (count/volume) 0.1 10*3/uL 0.0-0.1 Complete blood count (CBC) with automated white blood cell (WBC) differential - 01/22/19 08:50 Blood leukocytes automated count (number/volume) 2.9 10*3/uL 4.3-11.0 Blood erythrocytes automated count (number/volume) 3.34 10*6/uL 4.35-5.85 Venous blood hemoglobin measurement (mass/volume) 11.6 g/dL 13.3-17.7 Blood hematocrit (volume fraction) 36 % 40-54 Automated erythrocyte mean corpuscular volume 107 [foz_us] 80-99 Automated erythrocyte mean corpuscular hemoglobin (mass per erythrocyte) 35 pg 25-34 Automated erythrocyte mean corpuscular hemoglobin concentration measurement (mass/volume) 33 g/dL 32-36 Automated erythrocyte distribution width ratio 16.3 % 10.0- 14.5 Automated blood platelet count (count/volume) 66 10*3/uL 130- 400 Automated blood platelet mean volume measurement 11.6 [foz_us] 7.4-10.4 Automated blood neutrophils/100 leukocytes 25 % 42-75 Automated blood lymphocytes/100 leukocytes 34 % 12-44 Blood monocytes/100 leukocytes 18 % 0-12 Automated blood eosinophils/100 leukocytes 21 % 0-10 Automated blood basophils/100 leukocytes 2 % 0-10 Blood neutrophils automated count (number/volume) 0.7 10*3 1.8-7.8 Blood lymphocytes automated count (number/volume) 1.0 10*3 1.0-4.0 Blood monocytes automated count (number/volume) 0.5 10*3 0.0- 1.0 Automated eosinophil count 0.6 10*3/uL 0.0-0.3 Automated blood basophil count (count/volume) 0.1 10*3/uL 0.0-0.1 Comprehensive metabolic panel - 01/22/19 08:50 Serum or plasma sodium measurement (moles/volume) 141 mmol/L 135-145 Serum or plasma potassium measurement (moles/volume) 4.0 mmol/L 3.6-5.0 Serum or plasma chloride measurement (moles/volume) 102 mmol/L 98-107 Carbon dioxide 29 mmol/L 21-32 Serum or plasma anion gap determination (moles/volume) 10 mmol/L 5-14 Serum or plasma urea nitrogen measurement (mass/volume) 22 mg/dL 7-18 Serum or plasma creatinine measurement (mass/volume) 1.01 mg/dL 0.60-1.30 Serum or plasma urea nitrogen/creatinine mass ratio 22 NRG Serum or plasma creatinine measurement with calculation of estimated glomerular filtration rate > NRG Serum or plasma glucose measurement (mass/volume) 92 mg/dL 70-105 Serum or plasma calcium measurement (mass/volume) 8.9 mg/dL 8.5-10.1 Serum or plasma total bilirubin measurement (mass/volume) 0.6 mg/dL 0.1-1.0 Serum or plasma alkaline phosphatase measurement (enzymatic activity/volume) 73 U/L 40-136 Serum or plasma aspartate aminotransferase measurement (enzymatic activity/volume) 22 U/L 5-34 Serum or plasma alanine aminotransferase measurement (enzymatic activity/volume) 25 U/L 0-55 Serum or plasma protein measurement (mass/volume) 5.3 g/dL 6.4-8.2 Serum or plasma albumin measurement (mass/volume) 3.8 g/dL 3.2-4.5 CALCIUM CORRECTED 9.1 mg/dL 8.5-10.1 Lipid 1996 panel - 01/22/19 08:50 Serum or plasma triglyceride measurement (mass/volume) 78 mg/dL <150 Serum or plasma cholesterol measurement (mass/volume) 119 mg/dL < 200 Serum or plasma cholesterol in HDL measurement (mass/volume) 38 mg/dL 40-60 Cholesterol in LDL [mass/volume] in serum or plasma by direct assay 65 mg/dL 1-129 Serum or plasma cholesterol in VLDL measurement (mass/volume) 16 mg/dL 5-40 Complete blood count (CBC) with automated white blood cell (WBC) differential - 01/29/19 08:42 Blood leukocytes automated count (number/volume) 5.5 10*3/uL 4.3-11.0 Blood erythrocytes automated count (number/volume) 3.05 10*6/uL 4.35-5.85 Venous blood hemoglobin measurement (mass/volume) 10.6 g/dL 13.3-17.7 Blood hematocrit (volume fraction) 33 % 40-54 Automated erythrocyte mean corpuscular volume 107 [foz_us] 80-99 Automated erythrocyte mean corpuscular hemoglobin (mass per erythrocyte) 35 pg 25-34 Automated erythrocyte mean corpuscular hemoglobin concentration measurement (mass/volume) 32 g/dL 32-36 Automated erythrocyte distribution width ratio 16.3 % 10.0- 14.5 Automated blood platelet count (count/volume) 64 10*3/uL 130- 400 Automated blood platelet mean volume measurement 10.2 [foz_us] 7.4-10.4 Automated blood neutrophils/100 leukocytes 50 % 42-75 Automated blood lymphocytes/100 leukocytes 22 % 12-44 Blood monocytes/100 leukocytes 13 % 0-12 Automated blood eosinophils/100 leukocytes 15 % 0-10 Automated blood basophils/100 leukocytes 0 % 0-10 Blood neutrophils automated count (number/volume) 2.8 10*3 1.8-7.8 Blood lymphocytes automated count (number/volume) 1.2 10*3 1.0-4.0 Blood monocytes automated count (number/volume) 0.7 10*3 0.0- 1.0 Automated eosinophil count 0.8 10*3/uL 0.0-0.3 Automated blood basophil count (count/volume) 0.0 10*3/uL 0.0-0.1 Blood manual differential performed detection - 01/29/19 08:42 Blood monocytes/100 leukocytes 4 % NRG Manual blood segmented neutrophils/100 leukocytes 40 % NRG Blood band neutrophils/100 leukocytes 4 % NRG Manual blood lymphocytes/100 leukocytes 31 % NRG Manual eosinophils/100 leukocytes in nose 13 % NRG Manual blood basophils/100 leukocytes 1 % NRG Manual blood lymphocytes variant/100 leukocytes 5 % NRG Manual blood metamyelocytes/100 leukocytes 2 % NRG Complete blood count (CBC) with automated white blood cell (WBC) differential - 02/06/19 08:58 Blood leukocytes automated count (number/volume) 3.4 10*3/uL 4.3-11.0 Blood erythrocytes automated count (number/volume) 3.00 10*6/uL 4.35-5.85 Venous blood hemoglobin measurement (mass/volume) 10.5 g/dL 13.3-17.7 Blood hematocrit (volume fraction) 32 % 40-54 Automated erythrocyte mean corpuscular volume 107 [foz_us] 80-99 Automated erythrocyte mean corpuscular hemoglobin (mass per erythrocyte) 35 pg 25-34 Automated erythrocyte mean corpuscular hemoglobin concentration measurement (mass/volume) 33 g/dL 32-36 Automated erythrocyte distribution width ratio 16.8 % 10.0- 14.5 Automated blood platelet count (count/volume) 151 10*3/uL 130-400 Automated blood platelet mean volume measurement 9.8 [foz_us] 7.4-10.4 Automated blood neutrophils/100 leukocytes 62 % 42-75 Automated blood lymphocytes/100 leukocytes 15 % 12-44 Blood monocytes/100 leukocytes 10 % 0-12 Automated blood eosinophils/100 leukocytes 9 % 0-10 Automated blood basophils/100 leukocytes 3 % 0-10 Blood neutrophils automated count (number/volume) 2.1 10*3 1.8-7.8 Blood lymphocytes automated count (number/volume) 0.5 10*3 1.0-4.0 Blood monocytes automated count (number/volume) 0.4 10*3 0.0- 1.0 Automated eosinophil count 0.3 10*3/uL 0.0-0.3 Automated blood basophil count (count/volume) 0.1 10*3/uL 0.0-0.1 Complete blood count (CBC) with automated white blood cell (WBC) differential - 02/12/19 08:36 Blood leukocytes automated count (number/volume) 3.3 10*3/uL 4.3-11.0 Blood erythrocytes automated count (number/volume) 3.08 10*6/uL 4.35-5.85 Venous blood hemoglobin measurement (mass/volume) 11.2 g/dL 13.3-17.7 Blood hematocrit (volume fraction) 33 % 40-54 Automated erythrocyte mean corpuscular volume 108 [foz_us] 80-99 Automated erythrocyte mean corpuscular hemoglobin (mass per erythrocyte) 36 pg 25-34 Automated erythrocyte mean corpuscular hemoglobin concentration measurement (mass/volume) 34 g/dL 32-36 Automated erythrocyte distribution width ratio 17.5 % 10.0- 14.5 Automated blood platelet count (count/volume) 145 10*3/uL 130-400 Automated blood platelet mean volume measurement 9.8 [foz_us] 7.4-10.4 Automated blood neutrophils/100 leukocytes 47 % 42-75 Automated blood lymphocytes/100 leukocytes 21 % 12-44 Blood monocytes/100 leukocytes 16 % 0-12 Automated blood eosinophils/100 leukocytes 13 % 0-10 Automated blood basophils/100 leukocytes 2 % 0-10 Blood neutrophils automated count (number/volume) 1.6 10*3 1.8-7.8 Blood lymphocytes automated count (number/volume) 0.7 10*3 1.0-4.0 Blood monocytes automated count (number/volume) 0.5 10*3 0.0- 1.0 Automated eosinophil count 0.4 10*3/uL 0.0-0.3 Automated blood basophil count (count/volume) 0.1 10*3/uL 0.0-0.1 Blood manual differential performed detection - 02/12/19 08:36 Blood monocytes/100 leukocytes 16 % NRG Manual blood segmented neutrophils/100 leukocytes 35 % NRG Blood band neutrophils/100 leukocytes 5 % NRG Manual blood lymphocytes/100 leukocytes 25 % NRG Manual eosinophils/100 leukocytes in nose 15 % NRG Manual blood basophils/100 leukocytes 3 % NRG Blood anisocytosis detection by light microscopy SLIGHT NRG Blood macrocytes detection by light microscopy MARKED NRG Blood ovalocytes detection by light microscopy SLIGHT NRG Manual blood metamyelocytes/100 leukocytes 1 % NRG Complete blood count (CBC) with automated white blood cell (WBC) differential - 02/19/19 08:35 Blood leukocytes automated count (number/volume) 6.4 10*3/uL 4.3-11.0 Blood erythrocytes automated count (number/volume) 3.67 10*6/uL 4.35-5.85 Venous blood hemoglobin measurement (mass/volume) 13.1 g/dL 13.3-17.7 Blood hematocrit (volume fraction) 41 % 40-54 Automated erythrocyte mean corpuscular volume 110 [foz_us] 80-99 Automated erythrocyte mean corpuscular hemoglobin (mass per erythrocyte) 36 pg 25-34 Automated erythrocyte mean corpuscular hemoglobin concentration measurement (mass/volume) 32 g/dL 32-36 Automated erythrocyte distribution width ratio 16.7 % 10.0- 14.5 Automated blood platelet count (count/volume) 128 10*3/uL 130-400 Automated blood platelet mean volume measurement 10.9 [foz_us] 7.4-10.4 Automated blood neutrophils/100 leukocytes 48 % 42-75 Automated blood lymphocytes/100 leukocytes 13 % 12-44 Blood monocytes/100 leukocytes 15 % 0-12 Automated blood eosinophils/100 leukocytes 23 % 0-10 Automated blood basophils/100 leukocytes 1 % 0-10 Blood neutrophils automated count (number/volume) 3.1 10*3 1.8-7.8 Blood lymphocytes automated count (number/volume) 0.8 10*3 1.0-4.0 Blood monocytes automated count (number/volume) 1.0 10*3 0.0- 1.0 Automated eosinophil count 1.5 10*3/uL 0.0-0.3 Automated blood basophil count (count/volume) 0.1 10*3/uL 0.0-0.1 Complete blood count (CBC) with automated white blood cell (WBC) differential - 02/26/19 08:43 Blood leukocytes automated count (number/volume) 5.2 10*3/uL 4.3-11.0 Blood erythrocytes automated count (number/volume) 3.46 10*6/uL 4.35-5.85 Venous blood hemoglobin measurement (mass/volume) 12.3 g/dL 13.3-17.7 Blood hematocrit (volume fraction) 37 % 40-54 Automated erythrocyte mean corpuscular volume 107 [foz_us] 80-99 Automated erythrocyte mean corpuscular hemoglobin (mass per erythrocyte) 36 pg 25-34 Automated erythrocyte mean corpuscular hemoglobin concentration measurement (mass/volume) 33 g/dL 32-36 Automated erythrocyte distribution width ratio 15.9 % 10.0- 14.5 Automated blood platelet count (count/volume) 140 10*3/uL 130-400 Automated blood platelet mean volume measurement 10.6 [foz_us] 7.4-10.4 Automated blood neutrophils/100 leukocytes 38 % 42-75 Automated blood lymphocytes/100 leukocytes 11 % 12-44 Blood monocytes/100 leukocytes 18 % 0-12 Automated blood eosinophils/100 leukocytes 31 % 0-10 Automated blood basophils/100 leukocytes 1 % 0-10 Blood neutrophils automated count (number/volume) 2.0 10*3 1.8-7.8 Blood lymphocytes automated count (number/volume) 0.6 10*3 1.0-4.0 Blood monocytes automated count (number/volume) 0.9 10*3 0.0- 1.0 Automated eosinophil count 1.6 10*3/uL 0.0-0.3 Automated blood basophil count (count/volume) 0.1 10*3/uL 0.0-0.1 Complete blood count (CBC) with automated white blood cell (WBC) differential - 03/05/19 09:05 Blood leukocytes automated count (number/volume) 4.4 10*3/uL 4.3-11.0 Blood erythrocytes automated count (number/volume) 3.52 10*6/uL 4.35-5.85 Venous blood hemoglobin measurement (mass/volume) 12.4 g/dL 13.3-17.7 Blood hematocrit (volume fraction) 38 % 40-54 Automated erythrocyte mean corpuscular volume 108 [foz_us] 80-99 Automated erythrocyte mean corpuscular hemoglobin (mass per erythrocyte) 35 pg 25-34 Automated erythrocyte mean corpuscular hemoglobin concentration measurement (mass/volume) 33 g/dL 32-36 Automated erythrocyte distribution width ratio 15.7 % 10.0- 14.5 Automated blood platelet count (count/volume) 272 10*3/uL 130-400 Automated blood platelet mean volume measurement 9.5 [foz_us] 7.4-10.4 Automated blood neutrophils/100 leukocytes 41 % 42-75 Automated blood lymphocytes/100 leukocytes 12 % 12-44 Blood monocytes/100 leukocytes 21 % 0-12 Automated blood eosinophils/100 leukocytes 24 % 0-10 Automated blood basophils/100 leukocytes 2 % 0-10 Blood neutrophils automated count (number/volume) 1.8 10*3 1.8-7.8 Blood lymphocytes automated count (number/volume) 0.5 10*3 1.0-4.0 Blood monocytes automated count (number/volume) 0.9 10*3 0.0- 1.0 Automated eosinophil count 1.0 10*3/uL 0.0-0.3 Automated blood basophil count (count/volume) 0.1 10*3/uL 0.0-0.1 Encounters ACCT No. Visit Date/Time Discharge Status Pt. Type Provider Facility Loc./Unit Complaint [id number] 11/30/2018 10:00:00 12/04/2018 11:30:00 DIS Inpatient [facility] [id number] 11/27/2018 13:40:00 11/30/2018 10:00:00 [id number] 10/23/2018 09:08:00 10/23/2018 23:59:00 DIS Outpatient UNLISTED, UNLISTED [id number] 09/28/2018 18:03:00 10/02/2018 09:00:00 DIS Inpatient [facility] ICU [id number] 09/28/2018 18:29:07 Document Registration [id number] 02/21/2019 13:42:00 02/21/2019 23:59:59 CLS Outpatient SANJUANITA SADLER MD [facility] ONC [id number] 01/29/2019 08:34:00 02/18/2019 00:01:00 DIS Outpatient DAVID LEACH, SORAIDA V [facility] LAB FS E64.81 [id number] 02/13/2019 08:16:00 02/13/2019 23:59:59 CLS Outpatient DAVID LEACH, SORAIDA V [facility] RAD NHL W/ SKIN LESION [id number] 02/12/2019 00:12:00 02/12/2019 23:59:59 CLS Preadmit DAVID LEACH, SORAIDA V [facility] LAB FS D64.81 [id number] 11/13/2018 11:59:00 02/11/2019 00:01:00 DIS Outpatient DAVID LEACH, SORAIDA V [facility] LAB FS D64.81 [id number] 01/22/2019 08:34:00 01/22/2019 23:59:59 CLS Outpatient ROBERTA LEACH, JOVANNY Stubbs [facility] LAB FS C85.90 D63.1 E78.5 [id number] 11/27/2018 08:57:00 11/27/2018 13:00:00 DIS Emergency MICHELLE KOWALSKI DO [facility] ER FS COUGH; FEVER [id number] 11/06/2018 08:30:00 11/06/2018 23:59:59 CLS Outpatient DAVID LEACH, SORAIDA V [facility] LAB FS D64.81 [id number] 10/30/2018 08:41:00 10/30/2018 23:59:59 CLS Outpatient DAVID LEACH, SORAIDA V [facility] LAB FS CBC [id number] 10/03/2018 09:21:00 10/03/2018 23:59:59 CLS Outpatient DAVID LEACH, SORAIDA V [facility] RAD DIFUSE LARGE B-CELL LYMPHOMA [id number] 12/16/2014 00:09:00 12/16/2014 23:59:59 CLS Preadmit SANJUANITA SADLER MD [facility] ONC [id number] 10/02/2014 14:51:00 12/15/2014 00:01:00 DIS Outpatient SANJUANITA SADLER MD [facility] ONC [id number] 03/05/2019 09:08:00 ACT Outpatient DAVID LEACH, SORAIDA V [facility] LAB FS E64.81 [id number] 02/23/2019 20:07:06 ACT Unknown [id number] 02/07/2019 13:45:00 02/07/2019 23:59:59 CLS Outpatient [facility]
--- NOTE | 2019-03-06 09:24 | ED Fall/Injury ---
General Chief Complaint: Trauma-Non Activation Stated Complaint: FALL Source: patient, family (daughter) Exam Limitations: no limitations History of Present Illness Date Seen by Provider: Mar 06, 2019 Time Seen by Provider: 09:10 Initial Comments The patient presents to the ER by private conveyance with his family and chief complaint that just prior to arrival he had a fall out front of his house he stumbled on a brick and fell backwards striking the left occiput. He denies loss of consciousness nausea vision changes numbness tingling weakness and incontinence of bowel or bladder. His daughter relates that he had a fall unwitnessed yesterday as well and before that he has not had any falls for many months. He denies coughing dysuria diarrhea constipation shortness of breath chest pain but just feels generally weak. 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 Primary care is Dr. Granados. He has an abrasion on his left elbow and his right thumb subsequent to the fall yesterday. He says he is up-to-date on his tetanus shot. He is still on chemotherapy. He takes aspirin and Plavix. Allergies and Home Medications Allergies Coded Allergies: No Known Drug Allergies (Unverified , 02/05/10) Home Medications Amlodipine Besylate 5 Mg Tablet, 5 MG PO DAILY, (Reported) Aspirin 81 Mg Tabec, 81 MG PO DAILY, (Reported) Clopidogrel Bisulfate 75 Mg Tablet, 1 EACH PO DAILY, (Reported) Patient Home Medication List Home Medication List Reviewed: Yes Review of Systems Review of Systems Constitutional: No chills, No fever; weakness Eyes: Denies Blindness, Denies Blurred Vision Ears, Nose, Mouth, Throat: denies ear pain, denies ear discharge; nose discharge (clear rhinorrhea), throat pain (mild sore throat) Respiratory: cough (occasional, dry); No phlegm, No short of breath, No wheezing Cardiovascular: No edema, No palpitations Gastrointestinal: No abdominal pain, No constipation, No diarrhea, No nausea Genitourinary: No discharge, No dysuria Musculoskeletal: back pain (chronic osteoarthritis), joint pain (chronic osteoarthritis) Past Hlnqkqa-Zahbzk-Npjxjn Hx Patient Social History Recreational Drug Use: No Recent Hopitalizations: No Immunizations Up To Date Date of Influenza Vaccine: Jun 12, 2019 Seasonal Allergies Seasonal Allergies: No Past Medical History Surgeries: Yes (heart stents, hernia x 2, joint replacement: toe and knee) Joint Replacement Respiratory: No Cardiac: Yes Coronary Artery Disease Neurological: No Reproductive Disorders: No Sexually Transmitted Disease: No Genitourinary: No Gastrointestinal: Yes Chronic Constipation Musculoskeletal: Yes Arthritis Endocrine: No Cancer: Yes (Lg granular lymphocytic leukemia, cutaneous diffuse lg B-cell lymphoma) Leukemia, Lymphoma Did You Recieve Any Treatments: Yes What Type of Treatment Did You: Other Psychosocial: No Integumentary: No Blood Disorders: No Physical Exam Vital Signs Vital Signs - First Documented Capillary Refill : Height, Weight, BMI Height: 5'10.00" Weight: 170lbs. oz. 77.077278tq; BMI Method:Stated General Appearance: WD/WN, no apparent distress HEENT: PERRL/EOMI, normal ENT inspection, TMs normal, pharynx normal (oropharynx is mildly dry), other (no sinus pain. Head is atraumatic without Vargas sign, raccoon eyes, hematoma, hemotympanum. Left occiput without lace ration abrasion but is mildly tender to palpation) Neck: non-tender, full range of motion, supple, normal inspection Cardiovascular: normal peripheral pulses, regular rate, rhythm, no JVD Respiratory: chest non-tender, lungs clear, normal breath sounds, no respiratory distress, no accessory muscle use Peripheral Pulses: 3+ Dorsalis Pedis (R), 3+ Left Dors-Pedis (L); 2+ Radial Pulses (R), 2+ Radial Pulses (L) Gastrointestinal: normal bowel sounds, non tender, soft Back: normal inspection, no vertebral tenderness Extremities: normal range of motion, non-tender, normal inspection, normal capillary refill, pedal edema (modest, trace edema bilateral ankles) Neurologic/Psychiatric: plane runner II-XII nml as tested, no motor/sensory deficits, alert, normal mood/affect, oriented x 3 Skin: other (mild skin tear dressed with a Band-Aid over the right thumb and left elbow) Nataly Coma Score Best Eye Response: (4) Open Spontaneously Best Verbal Response: (5) Oriented Best Motor Response: (6) Obeys Commands Neeses Total: 15 Progress/Results/Core Measures Results/Orders Lab Results Laboratory Tests Test 03/06/19 09:25 03/06/19 10:20 Range/Units White Blood Count 3.8 L 4.3-11.0 10^3/uL Red Blood Count 3.27 L 4.35-5.85 10^6/uL Hemoglobin 11.6 L 13.3-17.7 G/DL Hematocrit 35 L 40-54 % Mean Corpuscular Volume 106 H 80-99 FL Mean Corpuscular Hemoglobin 35 H 25-34 PG Mean Corpuscular Hemoglobin Concent 33 32-36 G/DL Red Cell Distribution Width 15.6 H 10.0-14.5 % Platelet Count 263 130-400 10^3/uL Mean Platelet Volume 9.2 7.4-10.4 FL Neutrophils (%) (Auto) 49 42-75 % Lymphocytes (%) (Auto) 9 L 12-44 % Monocytes (%) (Auto) 19 H 0-12 % Eosinophils (%) (Auto) 19 H 0-10 % Basophils (%) (Auto) 2 0-10 % Neutrophils # (Auto) 1.9 1.8-7.8 X 10^3 Lymphocytes # (Auto) 0.3 L 1.0-4.0 X 10^3 Monocytes # (Auto) 0.7 0.0-1.0 X 10^3 Eosinophils # (Auto) 0.7 H 0.0-0.3 10^3/uL Basophils # (Auto) 0.1 0.0-0.1 10^3/uL Neutrophils % (Manual) 41 % Lymphocytes % (Manual) 12 % Monocytes % (Manual) 22 % Eosinophils % (Manual) 19 % Basophils % (Manual) 2 % Metamyelocytes % 0 % Myelocytes % 0 % Band Neutrophils 3 % Atypical Lymphocytes 1 % Sodium Level 138 135-145 MMOL/L Potassium Level 4.3 3.6-5.0 MMOL/L Chloride Level 100 98-107 MMOL/L Carbon Dioxide Level 26 21-32 MMOL/L Anion Gap 12 5-14 MMOL/L Blood Urea Nitrogen 24 H 7-18 MG/DL Creatinine 1.03 0.60-1.30 MG/DL Estimat Glomerular Filtration Rate > 60 BUN/Creatinine Ratio 23 Glucose Level 144 H 70-105 MG/DL Calcium Level 8.8 8.5-10.1 MG/DL Corrected Calcium 9.4 8.5-10.1 MG/DL Total Bilirubin 0.3 0.1-1.0 MG/DL Aspartate Amino Transf (AST/SGOT) 21 5-34 U/L Alanine Aminotransferase (ALT/SGPT) 17 0-55 U/L Alkaline Phosphatase 83 40-136 U/L Total Protein 5.4 L 6.4-8.2 GM/DL Albumin 3.3 3.2-4.5 GM/DL Urine Color YELLOW Urine Clarity CLEAR Urine pH 6.0 5-9 Urine Specific [place] 1.010 L 1.016-1.022 Urine Protein NEGATIVE NEGATIVE Urine Glucose (UA) NEGATIVE NEGATIVE Urine Ketones NEGATIVE NEGATIVE Urine Nitrite NEGATIVE NEGATIVE Urine Bilirubin NEGATIVE NEGATIVE Urine Urobilinogen 0.2 NORMAL MG/DL Urine Leukocyte Esterase NEGATIVE NEGATIVE Urine RBC (Auto) NEGATIVE NEGATIVE Urine RBC NONE /HPF Urine WBC RARE /HPF Urine Squamous Epithelial Cells NONE /HPF Urine Crystals NONE /LPF Urine Bacteria NEGATIVE /HPF Urine Casts NONE /LPF Urine Mucus NONE /LPF Urine Culture Indicated NO My Orders Orders - ANTHONY,MELBA J Orthostatic Vital Signs (Adult (03/06/19 09:16) Cbc With Automated Diff (03/06/19 09:16) Comprehensive Metabolic Panel (03/06/19 09:16) Urinalysis (03/06/19 09:16) Ct Head/Cervical Spine Wo (03/06/19 09:16) Chest 1 View Ap/Pa Only (03/06/19 09:28) Ekg Tracing (03/06/19 09:28) Continuous Ekg Monitoring (03/06/19 09:28) Manual Differential (03/06/19 09:25) Ed Iv/Invasive Line Start (03/06/19 09:48) Ns Iv 500 Ml (Sodium Chloride 0.9%) (03/06/19 09:48) Ns Iv 1000 Ml (Sodium Chloride 0.9%) (03/06/19 09:48) Vital Signs/I&O 03/06/19 03/06/19 03/06/19 09:03 09:03 09:49 Temp 99.4 99.4 Pulse 71 71 Resp 18 18 B/P (MAP) 145/74 (97) 145/74 (97) 123/65 (84) 117/72 (87) 88/57 (67) Pulse Ox 96 96 O2 Delivery Room Air Room Air Progress Progress Note #1: Time: 09:[address] of the head and neck without contrast looking for evidence of injury. Because had 2 falls in the last 24 hours despite him being explained by him tripping on something I would like to look at some basic labs to rule out infection, anemia, fluid and electrolyte imbalance. Orthostatic vital signs, EKG and chest x-ray since he's had an occasional cough. Plan to access his port. Heart rate in the 70s at rest with unlabored respirations and good oxygen saturations on room air. He's having no chest pain so pulmonary embolism is fairly unlikely although he does have risk factors with his leukemia and lymphoma. 0945: Orthostatics were markedly positive with blood pressure dipping down to the upper 80s systolic on standing and heart rate jumping from the 70s to 120. The patient is not on a beta william. Plan to give IV fluids as he clinically appears to be dehydrated and continue to pursue workup. Progress Note #2: Time: 11:40 Progress Note The patient was able to ambulate well. He still having some orthostasis however it is significantly improved and his blood pressure only dropped down to 122 sys tolic from 150. He would like to go home and continue oral rehydration. Initial ECG Impression Date: Mar 06, 2019 Initial ECG Impression Time: 09:39 Initial ECG Rate: 74 Initial ECG Rhythm: Normal Sinus Initial ECG Intervals: WI (233) Initial ECG Impression: Normal, Nonspecific Changes Initial ECG Comparisson: Changed Comment Incomplete right bundle-branch block, left ventricular hypertrophy, PVCs but no clinically significant ST changes. Diagnostic Imaging Diagonstic Imaging: Xray Plain Films/CT/US/NM/MRI: chest (1v) Comments [facility] [place] [place] NAME: KAYLEE MACIAS [facility] REC#: [id number] PT STATUS: REG ER : 1930 PHYSICIAN: MELBA CRUZ MD ADMIT DATE: 03/06/19/ER FS Draft Date of Exam:03/06/19 CHEST 1 VIEW AP/PA ONLY Indication: Fall Findings: A right subclavian line at the SVC. Benign calcified granulomatous changes in the right lung chronic. Old healed left rib deformities chronic. No effusion. No pneumothorax and degenerative changes to the shoulders greater right chronic. On the right cephalad migration of the humeral head abuts the undersurface of the acromion consistent with chronic disruption of the rotator cuff. This is also stable. An acute appearing abnormality is not identified. Impression: Stable chronic findings as described. Dictated on workstation # [id number] Dict: 03/06/19 1017 Trans: 03/06/19 1024 [facility] [id number] Interpreted by: COREY LOVE Electronically signed by: Reviewed: Reviewed by Me Diagonstic Imaging: CT (without contrast) Plain Films/CT/US/NM/MRI: c-spine, head Comments [facility] [place] [place] NAME: KAYLEE MACIAS [place] [facility] REC#: [id number] PT STATUS: REG ER : 1930 PHYSICIAN: MELBA CRUZ MD ADMIT DATE: 03/06/19/ER FS Draft Date of Exam:03/06/19 CT HEAD/CERVICAL SPINE WO PROCEDURE: CT head and CT cervical spine without contrast. TECHNIQUE: Multiple contiguous axial images were obtained through the brain and cervical spine without the use of intravenous contrast. Sagittal and coronal reformations through the cervical spine were then performed. Auto Exposure Controls were utilized during the CT exam to meet ALARA standards for radiation dose reduction. INDICATION: Head and neck pain after trauma, fall. COMPARISON: CT head from 08/15/2018. FINDINGS: CT head: No hyperdense hemorrhage or space-occupying mass. No hydrocephalus or midline shift. No features of territorial infarct. Global atrophy with mild periventricular white matter hypoattenuation is unchanged. No acute skull fracture. Paranasal sinuses and mastoid air cells are clear. CT cervical spine: Degenerative straightening of the cervical spine is present with multiple levels of degenerative spondylolisthesis measuring less than 3 mm. No acute fracture or traumatic malalignment. Multilevel mild spinal stenosis due to degenerative disc disease and facet osteoarthritis. There are varying degrees of mild to severe foraminal stenosis due to facet osteoarthritis and uncovertebral joint hypertrophy. Visualized airway is patent. Atherosclerotic plaque in the carotid bulbs. Lung apices are clear with the exception of calcified nodule. IMPRESSION: 1. No acute intracranial hemorrhage or skull fracture. 2. Advanced degenerative changes in the cervical spine. However, there is no acute fracture or traumatic malalignment in the cervical spine. Dictated on workstation # [id number] Dict: 03/06/19 1036 Trans: 03/06/[address] [facility] [id number] Interpreted by: ADRIANA RIVERA MD Electronically signed by: Reviewed: Reviewed by Me Departure Impression Primary Impression: Orthostatic hypotension Additional Impression: Hypovolemia dehydration Disposition: 01 HOME, SELF-CARE Condition: Improved Departure-Patient Inst. Decision time for Depature: 11:41 Referrals: JOVANNY GRANADOS MD (PCP/Family) Primary Care Physician Patient Instructions: Dehydration, Adult (DC) Add. Discharge Instructions: Drink plenty of fluids. Sports drinks are acceptable or you can use flavored sugar packets mixed in water. Follow-up with primary care as needed. Tylenol 1000 mg every 8 hours as needed for headache. All discharge instructions reviewed with patient and/or family. Voiced understanding. MELBA CRUZ Mar 06, 2019 09:24
[2019-03-06 09:36] LABS: HEMATOCRIT 35 % (40-54); HEMOGLOBIN 11.6 G/DL (13.3-17.7); LYMPHOCYTES % (AUTO) 9 % (12-44); MEAN CORPUSCULAR HEMOGLOBIN 35 PG (25-34); MEAN CORPUSCULAR HGB CONC 33 G/DL (32-36); MEAN CORPUSCULAR VOLUME 106 FL (80-99); MEAN PLATELET VOLUME 9.2 FL (7.4-10.4); NEUTROPHILS % (AUTO) 49 % (42-75); PLATELET COUNT 263 10^3/uL (130-400); RED CELL DISTRIBUTION WIDTH 15.6 % (10.0-14.5); WHITE BLOOD COUNT 3.8 10^3/uL (4.3-11.0)
[2019-03-06 09:37] LABS: BASOPHILS # (AUTO) 0.1 10^3/uL (0.0-0.1); BASOPHILS % (AUTO) 2 % (0-10); EOSINOPHILS # (AUTO) 0.7 10^3/uL (0.0-0.3); EOSINOPHILS % (AUTO) 19 % (0-10); LYMPHOCYTES # (AUTO) 0.3 X 10^3 (1.0-4.0); MONOCYTES # (AUTO) 0.7 X 10^3 (0.0-1.0); MONOCYTES % (AUTO) 19 % (0-12); NEUTROPHILS # (AUTO) 1.9 X 10^3 (1.8-7.8)
[2019-03-06] MEDS ORDERED: NS IV 500 ML 500 ML IV ONE (09:48)
[2019-03-06] MEDS ORDERED: NS IV 1000 ML 1,000 ML IV SCH (09:48)
[2019-03-06 09:49] VITALS: BP_SYST 117; BP_SYST 123; BP_SYST 88; BP_DIAS 57; BP_DIAS 65; BP_DIAS 72
[2019-03-06 10:01] LABS: ALANINE AMINOTRANSFERASE 17 U/L (0-55); ALKALINE PHOSPHATASE 83 U/L (40-136); BILIRUBIN,TOTAL 0.3 MG/DL (0.1-1.0); BUN/CREATININE RATIO 23; CALCIUM 8.8 MG/DL (8.5-10.1); CARBON DIOXIDE 26 MMOL/L (21-32); CHLORIDE 100 MMOL/L (98-107); CREATININE SERUM 1.03 MG/DL (0.60-1.30); GFR ESTIMATED > 60; GLUCOSE 144 MG/DL (70-105); POTASSIUM 4.3 MMOL/L (3.6-5.0); SODIUM 138 MMOL/L (135-145); TOTAL PROTEIN 5.4 GM/DL (6.4-8.2)
[2019-03-06 10:02] LABS: ALBUMIN 3.3 GM/DL (3.2-4.5); BAND NEUTROPHILS 3 %; BASOPHILS % (MANUAL) 2 %; EOSINOPHILS % (MANUAL) 19 %; LYMPHOCYTES % (MANUAL) 12 %; METAMYELOCYTES % 0 %; MONOCYTES % (MANUAL) 22 %; MYELOCYTES % 0 %; NEUTROPHILS % (MANUAL) 41 %
[2019-03-06 10:03] LABS: ATYPICAL LYMPHOCYTES 1 %
--- NOTE | 2019-03-06 10:25 | Diagnostic Imaging Report ---
Indication: Fall Findings: A right subclavian line at the SVC. Benign calcified granulomatous changes in the right lung chronic. Old healed left rib deformities chronic. No effusion. No pneumothorax and degenerative changes to the shoulders greater right chronic. On the right cephalad migration of the humeral head abuts the undersurface of the acromion consistent with chronic disruption of the rotator cuff. This is also stable. An acute appearing abnormality is not identified. Impression: Stable chronic findings as described. Dictated by: Dictated on workstation # [id number]
[2019-03-06 10:37] LABS: BILIRUBIN,URINE NEGATIVE (NEGATIVE); CLARITY,URINE CLEAR; COLOR,URINE YELLOW; GLUCOSE, URINE (UA) NEGATIVE (NEGATIVE); KETONES,URINE NEGATIVE (NEGATIVE); LEUKOCYTE ESTERASE ,URINE NEGATIVE (NEGATIVE); NITRITE,URINE NEGATIVE (NEGATIVE); PROTEIN,URINE NEGATIVE (NEGATIVE); UROBILINOGEN,URINE 0.2 MG/DL (NORMAL); WBC,URINE RARE /HPF
[2019-03-06 10:38] LABS: BACTERIA,URINE NEGATIVE /HPF
--- NOTE | 2019-03-06 10:42 | Diagnostic Imaging Report ---
PROCEDURE: CT head and CT cervical spine without contrast. TECHNIQUE: Multiple contiguous axial images were obtained through the brain and cervical spine without the use of intravenous contrast. Sagittal and coronal reformations through the cervical spine were then performed. Auto Exposure Controls were utilized during the CT exam to meet ALARA standards for radiation dose reduction. INDICATION: Head and neck pain after trauma, fall. COMPARISON: CT head from 08/15/2018. FINDINGS: CT head: No hyperdense hemorrhage or space-occupying mass. No hydrocephalus or midline shift. No features of territorial infarct. Global atrophy with mild periventricular white matter hypoattenuation is unchanged. No acute skull fracture. Paranasal sinuses and mastoid air cells are clear. CT cervical spine: Degenerative straightening of the cervical spine is present with multiple levels of degenerative spondylolisthesis measuring less than 3 mm. No acute fracture or traumatic malalignment. Multilevel mild spinal stenosis due to degenerative disc disease and facet osteoarthritis. There are varying degrees of mild to severe foraminal stenosis due to facet osteoarthritis and uncovertebral joint hypertrophy. Visualized airway is patent. Atherosclerotic plaque in the carotid bulbs. Lung apices are clear with the exception of calcified nodule. IMPRESSION: 1. No acute intracranial hemorrhage or skull fracture. 2. Advanced degenerative changes in the cervical spine. However, there is no acute fracture or traumatic malalignment in the cervical spine. Dictated by: Dictated on workstation # [id number]
[2019-03-06 11:59] VITALS: BP 122/82
== END 2019-03-06 12:06 | disposition home or self-care (01) ==
LOC: EDUNIT# 09:02 → ER FS 09:03
DX: I95.1 Orthostatic hypotension (principal); E86.1 Hypovolemia; E86.0 Dehydration; C85.90 Non-Hodgkin lymphoma, unspecified, unspecified site; C95.90 Leukemia, unspecified not having achieved remission; I25.10 Atherosclerotic heart disease of native coronary artery without angina pectoris; R40.2142 Coma scale, eyes open, spontaneous, at arrival to emergency department; R40.2252 Coma scale, best verbal response, oriented, at arrival to emergency department; R40.2362 Coma scale, best motor response, obeys commands, at arrival to emergency department; Z87.19 Personal history of other diseases of the digestive system; Z79.82 Long term (current) use of aspirin; Z95.5 Presence of coronary angioplasty implant and graft
CPT/HCPCS: 36415; 70450; 71045; 72125; 80053; 81000; 85007; 85027; 93005; 96360

== ENCOUNTER → 2019-04-03 | Outpatient (CLI) | payer MEDICARE ==
--- NOTE | 2019-04-03 16:53 | Diagnostic Imaging Report ---
EXAMINATION: PET/CT, subsequent. INDICATION: Non-Hodgkin's lymphoma. EXAMINATION: After intravenous administration of 13.18 mCi of F18-FDG into the right forearm, a series of overlapping emission and transmission PET images was obtained. In the coronal, transaxial and sagittal planes, the area imaged extended from the skull base through the upper thighs. Images of the lower extremities were also obtained. Patient's height is 70 inches, weight 160 pounds, blood glucose level 105. FINDINGS: The recent PET/CT exam of 02/13/2019 noted innumerable foci of abnormal uptake involving the lower extremities bilaterally. These were felt to be related to the patient's neoplastic skin lesions. On this exam, the appearance of the lower extremities has improved considerably as the hypermetabolic foci seen on the prior exam have diminished in size and number. There are still several hypermetabolic lesions involving both lower extremities including the large lesion involving the left great toe seen on the prior study. The maximum SUV involving the left great toe is only 3.7. The maximum SUV of the largest lesion of the right lower extremity is 8.9, however. The previous study did show increased activity involving the hard palate and tongue. Those findings are much less conspicuous on this exam. The previous exam also noted small foci of slightly hypermetabolic activity involving the mediastinum and isabelle. Those areas of abnormal uptake have also decreased. There is only now a small area of slightly hypermetabolic activity in the right hilum. This has maximum SUV of 2.7. No other hypermetabolic activity is seen to suggest the presence of neoplasm. As noted on the prior exam, there is physiologic activity in the brain, the kidneys, the bowel, and the bladder. The CT images again show diffuse areas of increased density throughout both lungs. The superior segment of the right lower lobe does seem better aerated than on the prior exam while there has been some increase in the density in the left upper lobe. These findings may be related to a combination of chronic and active disease. No acute abnormality of the abdomen or pelvis noted. The intracranial contents seem similar to the prior study. IMPRESSION: 1. The appearance of the PET/CT exam has improved since the prior exam as the numerous hypermetabolic nodules involving the lower extremities have diminished in size and number. There are still a few hypermetabolic nodules present in each lower extremity. 2. The hypermetabolic activity involving the hard palate, the tongue, and the mediastinal and hilar nodes seen previously has diminished. There is no new hypermetabolic activity to suggest a new focus of neoplastic disease. 3. There are diffuse areas of increased density involving both lungs. The superior segment of the right lower lobe does seem better aerated than on the prior exam but the density in the left upper lung is somewhat greater. These findings may represent a combination of chronic and active disease. Clinical followup is recommended. Dictated by: Dictated on workstation # [id number]
== END ==
LOC: RAD 09:50
PROVIDERS: ATTEND Internal Medicine Hematology & Oncology
DX: C83.39 Diffuse large B-cell lymphoma, extranodal and solid organ sites (principal); L98.8 Other specified disorders of the skin and subcutaneous tissue; D61.818 Other pancytopenia; J98.4 Other disorders of lung; R22.43 Localized swelling, mass and lump, lower limb, bilateral; Z97.2 Presence of dental prosthetic device (complete) (partial)

== ENCOUNTER 2019-05-07 08:34 | Outpatient (RCR) | payer MEDICARE ==
[2019-02-26 09:11] LABS: HEMATOCRIT 37 % (40-54); HEMOGLOBIN 12.3 G/DL (13.3-17.7); MEAN CORPUSCULAR HEMOGLOBIN 36 PG (25-34); MEAN CORPUSCULAR HGB CONC 33 G/DL (32-36); MEAN CORPUSCULAR VOLUME 107 FL (80-99); MEAN PLATELET VOLUME 10.6 FL (7.4-10.4); PLATELET COUNT 140 10^3/uL (130-400); RED CELL DISTRIBUTION WIDTH 15.9 % (10.0-14.5); WHITE BLOOD COUNT 5.2 10^3/uL (4.3-11.0)
[2019-02-26 09:12] LABS: BASOPHILS # (AUTO) 0.1 10^3/uL (0.0-0.1); BASOPHILS % (AUTO) 1 % (0-10); EOSINOPHILS # (AUTO) 1.6 10^3/uL (0.0-0.3); EOSINOPHILS % (AUTO) 31 % (0-10); LYMPHOCYTES # (AUTO) 0.6 X 10^3 (1.0-4.0); LYMPHOCYTES % (AUTO) 11 % (12-44); MONOCYTES # (AUTO) 0.9 X 10^3 (0.0-1.0); MONOCYTES % (AUTO) 18 % (0-12); NEUTROPHILS % (AUTO) 38 % (42-75)
[2019-03-05 09:43] LABS: BASOPHILS % (AUTO) 2 % (0-10); EOSINOPHILS % (AUTO) 24 % (0-10); HEMATOCRIT 38 % (40-54); HEMOGLOBIN 12.4 G/DL (13.3-17.7); LYMPHOCYTES # (AUTO) 0.5 X 10^3 (1.0-4.0); MEAN CORPUSCULAR HEMOGLOBIN 35 PG (25-34); MEAN CORPUSCULAR HGB CONC 33 G/DL (32-36); MEAN CORPUSCULAR VOLUME 108 FL (80-99); MEAN PLATELET VOLUME 9.5 FL (7.4-10.4); MONOCYTES # (AUTO) 0.9 X 10^3 (0.0-1.0); MONOCYTES % (AUTO) 21 % (0-12); NEUTROPHILS # (AUTO) 1.8 X 10^3 (1.8-7.8); NEUTROPHILS % (AUTO) 41 % (42-75); PLATELET COUNT 272 10^3/uL (130-400); RED CELL DISTRIBUTION WIDTH 15.7 % (10.0-14.5); WHITE BLOOD COUNT 4.4 10^3/uL (4.3-11.0)
[2019-03-05 09:44] LABS: BASOPHILS # (AUTO) 0.1 10^3/uL (0.0-0.1)
[2019-03-06 07:11] LABS: LYMPHOCYTES % (AUTO) 12 % (12-44)
[2019-03-12 09:30] LABS: HEMATOCRIT 36 % (40-54); HEMOGLOBIN 11.9 G/DL (13.3-17.7); MEAN CORPUSCULAR HEMOGLOBIN 35 PG (25-34); MEAN CORPUSCULAR HGB CONC 33 G/DL (32-36); MEAN CORPUSCULAR VOLUME 105 FL (80-99); PLATELET COUNT 193 10^3/uL (130-400); RED CELL DISTRIBUTION WIDTH 15.4 % (10.0-14.5)
[2019-03-12 09:31] LABS: BASOPHILS # (AUTO) 0.1 10^3/uL (0.0-0.1); BASOPHILS % (AUTO) 1 % (0-10); EOSINOPHILS # (AUTO) 1.4 10^3/uL (0.0-0.3); EOSINOPHILS % (AUTO) 28 % (0-10); LYMPHOCYTES # (AUTO) 0.6 X 10^3 (1.0-4.0); LYMPHOCYTES % (AUTO) 13 % (12-44); MEAN PLATELET VOLUME 9.6 FL (7.4-10.4); MONOCYTES # (AUTO) 0.4 X 10^3 (0.0-1.0); MONOCYTES % (AUTO) 8 % (0-12); NEUTROPHILS # (AUTO) 2.4 X 10^3 (1.8-7.8); NEUTROPHILS % (AUTO) 49 % (42-75)
[2019-03-19 09:17] LABS: HEMATOCRIT 35 % (40-54); HEMOGLOBIN 11.7 G/DL (13.3-17.7); MEAN CORPUSCULAR HEMOGLOBIN 35 PG (25-34); MEAN CORPUSCULAR HGB CONC 33 G/DL (32-36); MEAN CORPUSCULAR VOLUME 105 FL (80-99); MEAN PLATELET VOLUME 9.7 FL (7.4-10.4); PLATELET COUNT 134 10^3/uL (130-400); RED CELL DISTRIBUTION WIDTH 15.2 % (10.0-14.5); WHITE BLOOD COUNT 5.1 10^3/uL (4.3-11.0)
[2019-03-19 09:19] LABS: BASOPHILS # (AUTO) 0.1 10^3/uL (0.0-0.1); BASOPHILS % (AUTO) 1 % (0-10); EOSINOPHILS # (AUTO) 1.4 10^3/uL (0.0-0.3); EOSINOPHILS % (AUTO) 27 % (0-10); LYMPHOCYTES # (AUTO) 0.7 X 10^3 (1.0-4.0); LYMPHOCYTES % (AUTO) 14 % (12-44); MONOCYTES # (AUTO) 0.9 X 10^3 (0.0-1.0); MONOCYTES % (AUTO) 17 % (0-12); NEUTROPHILS # (AUTO) 2.1 X 10^3 (1.8-7.8); NEUTROPHILS % (AUTO) 41 % (42-75)
[2019-03-26 08:44] LABS: WHITE BLOOD COUNT 3.7 10^3/uL (4.3-11.0)
[2019-03-26 08:45] LABS: BASOPHILS # (AUTO) 0.1 10^3/uL (0.0-0.1); BASOPHILS % (AUTO) 1 % (0-10); EOSINOPHILS # (AUTO) 1.4 10^3/uL (0.0-0.3); EOSINOPHILS % (AUTO) 38 % (0-10); HEMATOCRIT 35 % (40-54); HEMOGLOBIN 11.6 G/DL (13.3-17.7); LYMPHOCYTES # (AUTO) 0.7 X 10^3 (1.0-4.0); LYMPHOCYTES % (AUTO) 20 % (12-44); MEAN CORPUSCULAR HEMOGLOBIN 35 PG (25-34); MEAN CORPUSCULAR HGB CONC 33 G/DL (32-36); MEAN CORPUSCULAR VOLUME 105 FL (80-99); MEAN PLATELET VOLUME 9.5 FL (7.4-10.4); MONOCYTES # (AUTO) 0.6 X 10^3 (0.0-1.0); MONOCYTES % (AUTO) 17 % (0-12); NEUTROPHILS # (AUTO) 0.9 X 10^3 (1.8-7.8); NEUTROPHILS % (AUTO) 23 % (42-75); PLATELET COUNT 119 10^3/uL (130-400); RED CELL DISTRIBUTION WIDTH 15.3 % (10.0-14.5)
[2019-03-26 09:38] LABS: BAND NEUTROPHILS 10 %; BASOPHILS % (MANUAL) 0 %; EOSINOPHILS % (MANUAL) 33 %; LYMPHOCYTES % (MANUAL) 23 %; MONOCYTES % (MANUAL) 10 %; NEUTROPHILS % (MANUAL) 24 %
[2019-04-02 09:41] LABS: HEMATOCRIT 35 % (40-54); HEMOGLOBIN 11.3 G/DL (13.3-17.7); LYMPHOCYTES % (AUTO) 19 % (12-44); MEAN CORPUSCULAR HEMOGLOBIN 35 PG (25-34); MEAN CORPUSCULAR HGB CONC 33 G/DL (32-36); MEAN CORPUSCULAR VOLUME 106 FL (80-99); MEAN PLATELET VOLUME 9.4 FL (7.4-10.4); MONOCYTES % (AUTO) 25 % (0-12); NEUTROPHILS % (AUTO) 30 % (42-75); PLATELET COUNT 142 10^3/uL (130-400); RED CELL DISTRIBUTION WIDTH 15.5 % (10.0-14.5)
[2019-04-02 09:42] LABS: BASOPHILS # (AUTO) 0.1 10^3/uL (0.0-0.1); BASOPHILS % (AUTO) 2 % (0-10); EOSINOPHILS # (AUTO) 0.7 10^3/uL (0.0-0.3); EOSINOPHILS % (AUTO) 23 % (0-10); LYMPHOCYTES # (AUTO) 0.6 X 10^3 (1.0-4.0); MONOCYTES # (AUTO) 0.7 X 10^3 (0.0-1.0); NEUTROPHILS # (AUTO) 0.9 X 10^3 (1.8-7.8)
[2019-04-02 12:21] LABS: BAND NEUTROPHILS 2 %; BASOPHILS % (MANUAL) 4 %; EOSINOPHILS % (MANUAL) 28 %; LYMPHOCYTES % (MANUAL) 17 %; MONOCYTES % (MANUAL) 23 %; NEUTROPHILS % (MANUAL) 24 %
[2019-04-09 09:08] LABS: HEMATOCRIT 34 % (40-54); HEMOGLOBIN 11.1 G/DL (13.3-17.7); MEAN CORPUSCULAR HEMOGLOBIN 35 PG (25-34); MEAN CORPUSCULAR HGB CONC 33 G/DL (32-36); MEAN CORPUSCULAR VOLUME 106 FL (80-99); RED CELL DISTRIBUTION WIDTH 15.9 % (10.0-14.5); WHITE BLOOD COUNT 3.8 10^3/uL (4.3-11.0)
[2019-04-09 09:09] LABS: BASOPHILS # (AUTO) 0.1 10^3/uL (0.0-0.1); BASOPHILS % (AUTO) 2 % (0-10); EOSINOPHILS # (AUTO) 0.5 10^3/uL (0.0-0.3); EOSINOPHILS % (AUTO) 13 % (0-10); LYMPHOCYTES # (AUTO) 0.8 X 10^3 (1.0-4.0); LYMPHOCYTES % (AUTO) 20 % (12-44); MEAN PLATELET VOLUME 10.2 FL (7.4-10.4); MONOCYTES # (AUTO) 0.4 X 10^3 (0.0-1.0); MONOCYTES % (AUTO) 10 % (0-12); NEUTROPHILS # (AUTO) 1.8 X 10^3 (1.8-7.8); NEUTROPHILS % (AUTO) 47 % (42-75); PLATELET COUNT 106 10^3/uL (130-400)
[2019-04-09 09:53] LABS: BAND NEUTROPHILS 7 %; BASOPHILS % (MANUAL) 1 %; EOSINOPHILS % (MANUAL) 13 %; HYPOCHROMASIA SLIGHT; LYMPHOCYTES % (MANUAL) 20 %; METAMYELOCYTES % 4 %; MONOCYTES % (MANUAL) 6 %; MYELOCYTES % 4 %; NEUTROPHILS % (MANUAL) 44 %; PROMYELOCYTES % 1 %
[2019-04-16 09:04] LABS: HEMATOCRIT 33 % (40-54); HEMOGLOBIN 11.1 G/DL (13.3-17.7); MEAN CORPUSCULAR HEMOGLOBIN 36 PG (25-34); MEAN CORPUSCULAR HGB CONC 34 G/DL (32-36); MEAN CORPUSCULAR VOLUME 106 FL (80-99); PLATELET COUNT 128 10^3/uL (130-400); WHITE BLOOD COUNT 4.9 10^3/uL (4.3-11.0)
[2019-04-16 09:05] LABS: BASOPHILS % (AUTO) 1 % (0-10); EOSINOPHILS % (AUTO) 15 % (0-10); LYMPHOCYTES % (AUTO) 19 % (12-44); MEAN PLATELET VOLUME 9.7 FL (7.4-10.4); MONOCYTES % (AUTO) 9 % (0-12); NEUTROPHILS % (AUTO) 56 % (42-75); RED CELL DISTRIBUTION WIDTH 15.7 % (10.0-14.5)
[2019-04-16 09:06] LABS: EOSINOPHILS # (AUTO) 0.7 10^3/uL (0.0-0.3); LYMPHOCYTES # (AUTO) 0.9 X 10^3 (1.0-4.0); MONOCYTES # (AUTO) 0.5 X 10^3 (0.0-1.0); NEUTROPHILS # (AUTO) 2.7 X 10^3 (1.8-7.8)
[2019-04-23 08:46] LABS: BASOPHILS # (AUTO) 0.1 10^3/uL (0.0-0.1); BASOPHILS % (AUTO) 2 % (0-10); EOSINOPHILS # (AUTO) 0.8 10^3/uL (0.0-0.3); EOSINOPHILS % (AUTO) 27 % (0-10); HEMATOCRIT 34 % (40-54); HEMOGLOBIN 10.8 G/DL (13.3-17.7); LYMPHOCYTES # (AUTO) 0.8 X 10^3 (1.0-4.0); LYMPHOCYTES % (AUTO) 25 % (12-44); MEAN CORPUSCULAR HEMOGLOBIN 35 PG (25-34); MEAN CORPUSCULAR HGB CONC 32 G/DL (32-36); MEAN CORPUSCULAR VOLUME 108 FL (80-99); MEAN PLATELET VOLUME 9.6 FL (7.4-10.4); MONOCYTES # (AUTO) 0.7 X 10^3 (0.0-1.0); MONOCYTES % (AUTO) 23 % (0-12); NEUTROPHILS # (AUTO) 0.6 X 10^3 (1.8-7.8); NEUTROPHILS % (AUTO) 21 % (42-75); PLATELET COUNT 129 10^3/uL (130-400); RED CELL DISTRIBUTION WIDTH 16.2 % (10.0-14.5)
[2019-04-23 10:21] LABS: BAND NEUTROPHILS 1 %; EOSINOPHILS % (MANUAL) 29 %; LYMPHOCYTES % (MANUAL) 31 %; MONOCYTES % (MANUAL) 20 %; NEUTROPHILS % (MANUAL) 16 %
[2019-04-23 10:22] LABS: ANISOCYTOSIS SLIGHT; BASOPHILS % (MANUAL) 3 %
[2019-04-30 09:17] LABS: HEMATOCRIT 31 % (40-54); HEMOGLOBIN 10.5 G/DL (13.3-17.7); MEAN CORPUSCULAR HEMOGLOBIN 37 PG (25-34); WHITE BLOOD COUNT 5.8 10^3/uL (4.3-11.0)
[2019-04-30 09:18] LABS: BASOPHILS % (AUTO) 1 % (0-10); EOSINOPHILS # (AUTO) 0.5 10^3/uL (0.0-0.3); EOSINOPHILS % (AUTO) 8 % (0-10); LYMPHOCYTES # (AUTO) 0.9 X 10^3 (1.0-4.0); LYMPHOCYTES % (AUTO) 16 % (12-44); MEAN CORPUSCULAR HGB CONC 34 G/DL (32-36); MEAN CORPUSCULAR VOLUME 107 FL (80-99); MEAN PLATELET VOLUME 10.1 FL (7.4-10.4); MONOCYTES % (AUTO) 17 % (0-12); NEUTROPHILS # (AUTO) 3.4 X 10^3 (1.8-7.8); NEUTROPHILS % (AUTO) 59 % (42-75); PLATELET COUNT 95 10^3/uL (130-400); RED CELL DISTRIBUTION WIDTH 17.2 % (10.0-14.5)
[2019-05-07 09:11] LABS: HEMATOCRIT 36 % (40-54); HEMOGLOBIN 11.5 G/DL (13.3-17.7); LYMPHOCYTES % (AUTO) 15 % (12-44); MEAN CORPUSCULAR HEMOGLOBIN 36 PG (25-34); MEAN CORPUSCULAR HGB CONC 32 G/DL (32-36); MEAN CORPUSCULAR VOLUME 110 FL (80-99); MEAN PLATELET VOLUME 10.2 FL (7.4-10.4); PLATELET COUNT 165 10^3/uL (130-400); RED CELL DISTRIBUTION WIDTH 18.6 % (10.0-14.5); WHITE BLOOD COUNT 4.3 10^3/uL (4.3-11.0)
[2019-05-07 09:12] LABS: BASOPHILS # (AUTO) 0.1 10^3/uL (0.0-0.1); BASOPHILS % (AUTO) 3 % (0-10); EOSINOPHILS # (AUTO) 0.5 10^3/uL (0.0-0.3); EOSINOPHILS % (AUTO) 11 % (0-10); LYMPHOCYTES # (AUTO) 0.6 X 10^3 (1.0-4.0); MONOCYTES # (AUTO) 0.3 X 10^3 (0.0-1.0); MONOCYTES % (AUTO) 7 % (0-12); NEUTROPHILS # (AUTO) 2.7 X 10^3 (1.8-7.8); NEUTROPHILS % (AUTO) 64 % (42-75)
[2019-05-20] MEDS ORDERED: TAMS0.4C98 PO (15:49)
[2019-05-20] MEDS ORDERED: METH2.5T PO (15:50)
[2019-05-20] MEDS ORDERED: LENA5CAP PO (15:53)
[2019-05-21] MEDS ORDERED: ASPI-999 PO (10:40)
[2019-05-21] MEDS ORDERED: HYDR-3812 PO (10:41)
[2019-05-21] MEDS ORDERED: TRAM50TA2 PO (10:41)
[2019-05-21] MEDS ORDERED: ACET325T38 PO (10:45)
[2019-05-21] MEDS ORDERED: MULT-436 PO (10:45)
[2019-05-21] MEDS ORDERED: CALC625T PO (10:45)
[2019-05-21] MEDS ORDERED: LORA10TA76 PO (10:45)
[2019-05-21] MEDS ORDERED: DIPH25TA65 PO (10:45)
[2019-05-24] MEDS ORDERED: CEFD300C3 PO (11:14)
== END 2019-05-27 | disposition home or self-care (01) ==
LOC: LAB FS 08:34
PROVIDERS: ATTEND Internal Medicine Hematology & Oncology
DX: D64.81 Anemia due to antineoplastic chemotherapy (principal); T45.1X5A Adverse effect of antineoplastic and immunosuppressive drugs, initial encounter
CPT/HCPCS: 36415; 85007; 85025; 85027

== ENCOUNTER → 2019-05-14 | Outpatient (CLI) | payer MEDICARE ==
[~2019-05-14] MED LIST changes: +ACET325T38 PO; +ASPI-999 PO; +CALC625T PO; +CEFD300C3 PO; +DIPH25TA65 PO; +HYDR-3812 PO; +LENA5CAP PO; +LORA10TA76 PO; +METH2.5T PO; +MULT-436 PO; +TAMS0.4C98 PO; +TRAM50TA2 PO
[2019-05-14 10:41] LABS: HEMATOCRIT 37 % (40-54); HEMOGLOBIN 11.8 G/DL (13.3-17.7); MEAN CORPUSCULAR HEMOGLOBIN 36 PG (25-34); MEAN CORPUSCULAR HGB CONC 32 G/DL (32-36); MEAN CORPUSCULAR VOLUME 112 FL (80-99); PLATELET COUNT 106 10^3/uL (130-400); RED CELL DISTRIBUTION WIDTH 17.3 % (10.0-14.5); WHITE BLOOD COUNT 3.5 10^3/uL (4.3-11.0)
[2019-05-14 10:42] LABS: BASOPHILS # (AUTO) 0.1 10^3/uL (0.0-0.1); BASOPHILS % (AUTO) 2 % (0-10); EOSINOPHILS # (AUTO) 0.7 10^3/uL (0.0-0.3); EOSINOPHILS % (AUTO) 21 % (0-10); LYMPHOCYTES # (AUTO) 0.7 X 10^3 (1.0-4.0); LYMPHOCYTES % (AUTO) 21 % (12-44); MEAN PLATELET VOLUME 10.7 FL (7.4-10.4); MONOCYTES # (AUTO) 0.5 X 10^3 (0.0-1.0); MONOCYTES % (AUTO) 14 % (0-12); NEUTROPHILS # (AUTO) 1.5 X 10^3 (1.8-7.8); NEUTROPHILS % (AUTO) 42 % (42-75)
--- NOTE | 2019-05-15 22:39 | Physician Query-Final Dx ---
JEREMIE AU 05/15/19 2239: Final Diagnosis Give Final Diagnosis Please give Final Diagnosis Please give Final Diagnosis and add weeks of gestation RITA DUCKWORTH MD 06/01/19 1418: Final Diagnosis Give Final Diagnosis 88 year old male. not sure I was involved with care. DJK see note JEREMIE AU May 15, 2019 22:39 RITA DUCKWORTH MD Jun 01, 2019 14:18
== END ==
LOC: LAB FS 10:28
PROVIDERS: ATTEND Internal Medicine Hematology & Oncology
DX: C83.39 Diffuse large B-cell lymphoma, extranodal and solid organ sites (principal); C85.85 Other specified types of non-Hodgkin lymphoma, lymph nodes of inguinal region and lower limb
CPT/HCPCS: 36415; 85025

== ENCOUNTER 2019-05-20 10:28 | Inpatient (IN) | payer MEDICARE ==
[~2019-05-20] VITALS: Ht 180.3 cm; Wt 83.5 kg
[~2019-05-20 10:28] MED LIST changes: -ACET325T38 PO; -ASPI-999 PO; -CALC625T PO; -CEFD300C3 PO; -DIPH25TA65 PO; -HYDR-3812 PO; -LENA5CAP PO; -LORA10TA76 PO; -METH2.5T PO; -MULT-436 PO; -TAMS0.4C98 PO; -TRAM50TA2 PO
[2019-05-20] MEDS ORDERED: NS IV 1000 ML 1,000 ML IV SCH (10:37)
[2019-05-20] MEDS ORDERED: HEParin (CENTRAL IV FLUSH) 500 UNIT/5 ML SYR ONE (10:42)
[2019-05-20] MEDS ORDERED: ACETAMINOPHEN 500 MG TAB (TYLENOL) PO ONE (10:45)
[2019-05-20] MEDS ORDERED: AZITHROMYCIN 250 MG TAB (ZITHROMAX) PO ONE (10:45)
[2019-05-20] MEDS ORDERED: cefTRIAXone FOR IV USE 1,000 MG in WATER (STERILE) FOR INJECTION 10 ML IV ONE (10:45)
--- NOTE | 2019-05-20 10:45 | ED Fever ---
History of Present Illness General Stated Complaint: FEVER Source: patient, family Exam Limitations: no limitations History of Present Illness Date Seen by Provider: May 20, 2019 Time Seen by Provider: 10:27 Initial Comments Patient reports the ER by private conveyance with family and chief complaint of malaise, weakness/tiredness, fever for the past 4 days progressively worsening. He's had a nonproductive cough that has kept him up at night. They gave Tylenol yesterday for his fever but nothing today. Sick contacts with viral upper respiratory infections. 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 Denies a history of lung disease or smoking. He has some diarrhea yesterday but that has passed today. No nausea or vomiting. Denies dysuria or discharge. No abdominal pain, chest pain or shortness of breath. He has had a thin clear rhinorrhea but no ear pain. Allergies and Home Medications Allergies Coded Allergies: No Known Drug Allergies (Unverified , 02/05/10) Home Medications Amlodipine Besylate 5 Mg Tablet, 5 MG PO DAILY, (Reported) Aspirin 81 Mg Tabec, 81 MG PO DAILY, (Reported) Clopidogrel Bisulfate 75 Mg Tablet, 1 EACH PO DAILY, (Reported) Patient Home Medication List Home Medication List Reviewed: Yes Review of Systems Review of Systems Constitutional: chills, fever, malaise, weakness EENTM: No ear discharge, No hearing loss, No ear pain Respiratory: cough; No phlegm, No short of breath, No wheezing Cardiovascular: No chest pain; edema (chronic); No palpitations Gastrointestinal: No abdominal pain, No constipation; diarrhea; No nausea, No vomiting Genitourinary: No discharge, No dysuria Musculoskeletal: No back pain, No joint pain Skin: No pruritus, No rash Psychiatric/Neurological: Headache Past Oqnpcvj-Cvzcfy-Dztaft Hx Patient Social History Alcohol Use: Denies Use Recreational Drug Use: No Smoking Status: Never a Smoker 2nd Hand Smoke Exposure: No Recent Hopitalizations: No Immunizations Up To Date Date of Influenza Vaccine: Jun 12, 2019 Seasonal Allergies Seasonal Allergies: No Past Medical History Surgeries: Yes (heart stents, hernia x 2, joint replacement: toe and knee) Joint Replacement Respiratory: No Cardiac: Yes Coronary Artery Disease Neurological: No Reproductive Disorders: No Sexually Transmitted Disease: No Genitourinary: No Gastrointestinal: Yes Chronic Constipation Musculoskeletal: Yes Arthritis Endocrine: No Cancer: Yes (Lg granular lymphocytic leukemia, cutaneous diffuse lg B-cell lymphoma) Leukemia, Lymphoma Did You Recieve Any Treatments: Yes What Type of Treatment Did You: Other Psychosocial: No Integumentary: No Blood Disorders: No Physical Exam Vital Signs - First Documented 05/20/19 10:30 Temp 98.5 Pulse 62 Resp 20 B/P (MAP) 152/68 (96) Pulse Ox 94 O2 Delivery Room Air Capillary Refill : Height: 5'10.00" Weight: 165lbs. oz. 74.197332fe; BMI Method:Stated General Appearance: WD/WN, no apparent distress Eyes: Bilateral Eye Normal Inspection, Bilateral Eye PERRL, Bilateral Eye EOMI HEENT: PERRL/EOMI, normal ENT inspection, TMs normal, pharynx normal, other (clear rhinorrhea bilateral nares) Neck: non-tender, full range of motion, normal inspection Respiratory: no respiratory distress, no accessory muscle use, crackles (faint, left); No wheezing Cardiovascular: normal peripheral pulses, regular rate, rhythm Gastrointestinal: normal bowel sounds, non tender, soft Extremities: normal range of motion, non-tender, pedal edema Neurologic/Psychiatric: alert, normal mood/affect, oriented x 3 Skin: normal color, warm/dry Focused Exam Sepsis Stage: Sepsis Possible Source: Pulmonary Lactate Level 05/20/19 11:00: Lactic Acid Level 1.77 Time of Focused Exam: 12:30 Respiratory: No Accessory Muscle Use, No Respiratory Distress, Rales (faint left base) Cardiovascular: Regular Rate, Rhythm, Normal Peripheral Pulses Capillary Refill: Less Than 3 Seconds Peripheral Pulses: 2+ Radial Pulses (R), 2+ Radial Pulses (L) Skin: normal color, warm/dry Lactic Acid Level Laboratory Tests Test 05/20/19 11:00 Lactic Acid Level 1.77 MMOL/L (0.50-2.00) Within 3hrs of presentation: Admin fluids, Admin ABX, Blood cultures prior to ABX's, Focus exam, Lactate level Progress/Results/Core Measures Suspected Sepsis SIRS Temperature: Pulse: Respiratory Rate: Laboratory Tests 05/20/19 11:00: White Blood Count 2.6L Blood Pressure / Mean: 05/20/19 11:00: Lactic Acid Level 1.77 Laboratory Tests 05/20/19 11:00: Creatinine 1.09, Platelet Count 70L, Total Bilirubin 0.5 Results/Orders Lab Results Laboratory Tests Test 05/20/19 11:00 Range/Units White Blood Count 2.6 L 4.3-11.0 10^3/uL Red Blood Count 3.08 L 4.35-5.85 10^6/uL Hemoglobin 10.9 L 13.3-17.7 G/DL Hematocrit 34 L 40-54 % Mean Corpuscular Volume 110 H 80-99 FL Mean Corpuscular Hemoglobin 35 H 25-34 PG Mean Corpuscular Hemoglobin Concent 32 32-36 G/DL Red Cell Distribution Width 16.4 H 10.0-14.5 % Platelet Count 70 L 130-400 10^3/uL Mean Platelet Volume 10.5 H 7.4-10.4 FL Neutrophils (%) (Auto) 21 L 42-75 % Lymphocytes (%) (Auto) 28 12-44 % Monocytes (%) (Auto) 22 H 0-12 % Eosinophils (%) (Auto) 27 H 0-10 % Basophils (%) (Auto) 2 0-10 % Neutrophils # (Auto) 0.6 L 1.8-7.8 X 10^3 Lymphocytes # (Auto) 0.7 L 1.0-4.0 X 10^3 Monocytes # (Auto) 0.6 0.0-1.0 X 10^3 Eosinophils # (Auto) 0.7 H 0.0-0.3 10^3/uL Basophils # (Auto) 0.0 0.0-0.1 10^3/uL Neutrophils % (Manual) 14 % Lymphocytes % (Manual) 40 % Monocytes % (Manual) 8 % Eosinophils % (Manual) 32 % Basophils % (Manual) 0 % Band Neutrophils 6 % Anisocytosis SLIGHT Macrocytosis MARKED Sodium Level 143 135-145 MMOL/L Potassium Level 3.8 3.6-5.0 MMOL/L Chloride Level 105 98-107 MMOL/L Carbon Dioxide Level 27 21-32 MMOL/L Anion Gap 11 5-14 MMOL/L Blood Urea Nitrogen 17 7-18 MG/DL Creatinine 1.09 0.60-1.30 MG/DL Estimat Glomerular Filtration Rate > 60 BUN/Creatinine Ratio 16 Glucose Level 128 H 70-105 MG/DL Lactic Acid Level 1.77 0.50-2.00 MMOL/L Calcium Level 8.7 8.5-10.1 MG/DL Corrected Calcium 9.3 8.5-10.1 MG/DL Total Bilirubin 0.5 0.1-1.0 MG/DL Aspartate Amino Transf (AST/SGOT) 19 5-34 U/L Alanine Aminotransferase (ALT/SGPT) 16 0-55 U/L Alkaline Phosphatase 64 40-136 U/L Pro-B-Type Natriuretic Peptide 1745.0 H <75.0 PG/ML Total Protein 4.9 L 6.4-8.2 GM/DL Albumin 3.3 3.2-4.5 GM/DL Micro Results Microbiology 05/20/19 Influenza Types A,B Antigen (CHRISTOPHER) - Final, Complete My Orders Orders - MELBA NUNEZ Acetaminophen Tablet (Tylenol Tablet) (05/20/19 10:45) Ed Iv/Invasive Line Start (05/20/19 10:37) Ns Iv 1000 Ml (Sodium Chloride 0.9%) (05/20/19 10:37) Cbc With Automated Diff (05/20/19 10:37) Comprehensive Metabolic Panel (05/20/19 10:37) Influenza A And B Antigens (05/20/19 10:37) Blood Culture (05/20/19 10:37) Ua Culture If Indicated (05/20/19 10:37) Chest Pa/Lat (2 View) (05/20/19 10:39) Probnp Fs (05/20/19 10:40) Ceftriaxone For Iv Use (Rocephin For I (05/20/19 10:45) Azithromycin Tablet (Zithromax Tablet) (05/20/19 10:45) Heparin (Central Iv Flush) (Heparin (Froylan (05/20/19 10:42) Manual Differential (05/20/19 11:00) Lactic Acid Analyzer (05/20/19 11:14) Medications Given in ED Current Medications Medications Dose Ordered Sig/Micheal Route Start Time Stop Time Status Last Admin Dose Admin Acetaminophen 1,000 mg ONCE ONCE PO 05/20/19 10:45 05/20/19 10:46 DC 05/20/19 10:56 1,000 MG Azithromycin 500 mg ONCE ONCE PO 05/20/19 10:45 05/20/19 10:50 DC 05/20/19 11:25 500 MG Ceftriaxone Sodium 1000 mg/ Sterile Water 10 ml @ 200 mls/hr ONCE ONCE IV 05/20/19 10:45 05/20/19 10:50 DC 05/20/19 11:25 200 MLS/HR Vital Signs/I&O 05/20/19 10:30 Temp 98.5 Pulse 62 Resp 20 B/P (MAP) 152/68 (96) Pulse Ox 94 O2 Delivery Room Air Capillary Refill : Progress Note : Time: 10:44 Progress Note Not septic though we will obtain blood cultures labs two-view chest x-ray and give him thousand milligrams Tylenol for his headache. He is afebrile at this time. Suspect possible pneumonia versus bronchitis. With his history of immunocompromise and age. Be reasonable to consider a stay in the hospital on IV antibiotics if he has significant evidence of pneumonia. Oxygenating well. Diagnostic Imaging Diagonstic Imaging: Xray Plain Films/CT/US/NM/MRI: chest (2v) Comments Chronic-appearing basilar atelectasis along the right base versus possible infiltrate. Central line seems to be in similar position to previous x-ray. NAME: COLLEENKAYLEE [facility] REC#: [id number] PT STATUS: REG ER : [id number] PHYSICIAN: MELBA NUNEZ MD ADMIT DATE: 05/20/19/ER FS Draft Date of Exam:05/20/19 CHEST PA/LAT (2 VIEW) INDICATION: Cough and fever. COMPARISON: 11/27/2018, 03/06/2019 FINDINGS: Frontal and lateral views of the chest demonstrate hyperinflation compatible with COPD. There is dependent atelectasis in both bases. There are trace bilateral pleural effusions. Heart is prominent without pulmonary edema. There is no pneumothorax. Port-A-Cath is stable. There is a lucency under the right hemidiaphragm felt to represent bowel artifact as opposed to free air. However, please correlate with physical exam. If there is suspicion of pneumoperitoneum, recommend CT imaging. IMPRESSION: 1. New basilar atelectasis with trace effusions. 2. COPD. 3. Curvilinear lucency under the right hemidiaphragm felt to be bowel artifact. However, please correlate with physical exam and obtain CT if clinically warranted. Critical findings report called to Dr. Nunez. Dictated on workstation # [id number] Dict: 05/20/19 1129 Trans: 05/20/19 1138 [id number] Interpreted by: RITA HANSEN Electronically signed by: Reviewed: Reviewed by Me, Discussed w/Radiologist Departure Communication (Admissions) Time/Spoke to Admitting Phy: 12:20 Discussed case lab imaging with Dr. Andrade and he agrees to accept the patient to the floor for admission for neutropenic fever Impression Primary Impression: Fever and neutropenia Additional Impressions: Pneumonia Qualified Codes: J18.9 - Pneumonia, unspecified organism Sepsis Qualified Codes: A41.9 - Sepsis, unspecified organism Disposition: 01 HOME, SELF-CARE Condition: Stable Admissions Decision to Admit Reason: Admit from ER (General) Decision to Admit/Date: May 20, 2019 Time/Decision to Admit Time: 12:15 Departure-Patient Inst. Referrals: JOVANNY GRANADOS MD (PCP/Family) Primary Care Physician MELBA NUNEZ May 20, 2019 10:45
[2019-05-20 11:11] LABS: BASOPHILS % (AUTO) 2 % (0-10); EOSINOPHILS % (AUTO) 27 % (0-10); HEMATOCRIT 34 % (40-54); HEMOGLOBIN 10.9 G/DL (13.3-17.7); LYMPHOCYTES # (AUTO) 0.7 X 10^3 (1.0-4.0); LYMPHOCYTES % (AUTO) 28 % (12-44); MEAN CORPUSCULAR HEMOGLOBIN 35 PG (25-34); MEAN CORPUSCULAR HGB CONC 32 G/DL (32-36); MEAN CORPUSCULAR VOLUME 110 FL (80-99); MEAN PLATELET VOLUME 10.5 FL (7.4-10.4); MONOCYTES % (AUTO) 22 % (0-12); NEUTROPHILS # (AUTO) 0.6 X 10^3 (1.8-7.8); NEUTROPHILS % (AUTO) 21 % (42-75); PLATELET COUNT 70 10^3/uL (130-400); RED CELL DISTRIBUTION WIDTH 16.4 % (10.0-14.5); WHITE BLOOD COUNT 2.6 10^3/uL (4.3-11.0)
[2019-05-20 11:12] LABS: EOSINOPHILS # (AUTO) 0.7 10^3/uL (0.0-0.3); MONOCYTES # (AUTO) 0.6 X 10^3 (0.0-1.0)
[2019-05-20 11:30] LABS: ALANINE AMINOTRANSFERASE 16 U/L (0-55); ALKALINE PHOSPHATASE 64 U/L (40-136); BILIRUBIN,TOTAL 0.5 MG/DL (0.1-1.0); BUN/CREATININE RATIO 16; CALCIUM 8.7 MG/DL (8.5-10.1); CARBON DIOXIDE 27 MMOL/L (21-32); CHLORIDE 105 MMOL/L (98-107); CREATININE SERUM 1.09 MG/DL (0.60-1.30); GFR ESTIMATED > 60; GLUCOSE 128 MG/DL (70-105); POTASSIUM 3.8 MMOL/L (3.6-5.0); SODIUM 143 MMOL/L (135-145)
[2019-05-20 11:31] LABS: ALBUMIN 3.3 GM/DL (3.2-4.5); TOTAL PROTEIN 4.9 GM/DL (6.4-8.2)
--- NOTE | 2019-05-20 11:39 | Diagnostic Imaging Report ---
INDICATION: Cough and fever. COMPARISON: 11/27/2018, 03/06/2019 FINDINGS: Frontal and lateral views of the chest demonstrate hyperinflation compatible with COPD. There is dependent atelectasis in both bases. There are trace bilateral pleural effusions. Heart is prominent without pulmonary edema. There is no pneumothorax. Port-A-Cath is stable. There is a lucency under the right hemidiaphragm felt to represent bowel artifact as opposed to free air. However, please correlate with physical exam. If there is suspicion of pneumoperitoneum, recommend CT imaging. IMPRESSION: 1. New basilar atelectasis with trace effusions. 2. COPD. 3. Curvilinear lucency under the right hemidiaphragm felt to be bowel artifact. However, please correlate with physical exam and obtain CT if clinically warranted. Critical findings report called to Dr. Nunez. Dictated by: Dictated on workstation # [id number]
[2019-05-20 11:44] LABS: ANISOCYTOSIS SLIGHT; BAND NEUTROPHILS 6 %; BASOPHILS % (MANUAL) 0 %; EOSINOPHILS % (MANUAL) 32 %; LYMPHOCYTES % (MANUAL) 40 %; MONOCYTES % (MANUAL) 8 %; NEUTROPHILS % (MANUAL) 14 %
--- NOTE | 2019-05-20 14:07 | NUR ---
KAYLEE MACIAS JR admitted to room 429-1, with an admitting diagnosis of NEUTRIPENIC FEVER, on 05/20/19 from ED BYWAY OFPRIVATE VEHICLE , accompanied by DAUGHTER.KAYLEE MACIAS JR introduced to surroundings, call light, bed controls, phone, TV, temperature control, lights, meal times, smoking policy, visitor policy, side rail policy, bathrooms and showers.KAYLEE MACIAS JR verbalizes understanding that [facility] is not responsible for the loss or damage to any personal effects or valuables that are kept in the patients posession during their hospitalization. The following Patient Care Plans were discussed with the PATIENT: Discharge Planning, FEVER AND PAIN. KAYLEE MACIAS JR verbalizes understanding of Interdisciplinary Patient Education. Patient and/or family were informed about the Rapid Response Team and its purpose.
[2019-05-20 14:10] VITALS: BP 149/90
[2019-05-20] MEDS ORDERED: ONDANSETRON 4 MG/2 ML (SDV) Z0FRAN IVP PRN (15:15)
[2019-05-20] MEDS: 1/2 NS W/KCL 20 MEQ/L 1,000 ML IV SCH ×2 (15:45→23:37)
[2019-05-20] MEDS ORDERED: TAMS0.4C98 PO (15:49)
[2019-05-20] MEDS ORDERED: METH2.5T PO (15:50)
[2019-05-20] MEDS ORDERED: LENA5CAP PO (15:53)
--- NOTE | 2019-05-20 15:58 | NUR ---
DR. RYAN NOTIFIED HOME MEDS REVIEWED
[2019-05-20 16:25] VITALS: BP 167/88
[2019-05-20] MEDS: HYDROcodone/APAP 5 MG/325 MG (LORTAB) TAB PO PRN ×2 (16:45→21:19)
[2019-05-20] MEDS: TAMSULOSIN 0.4 MG (FLOMAX) CAP PO SCH (16:46)
[2019-05-20] MEDS ORDERED: guaiFENesin/DM (ROBITUSSIN DM) 10 ML UDC PO PRN (18:15)
[2019-05-20 18:30] LABS: BILIRUBIN,URINE NEGATIVE (NEGATIVE); CLARITY,URINE CLEAR; COLOR,URINE YELLOW; GLUCOSE, URINE (UA) NEGATIVE (NEGATIVE); KETONES,URINE NEGATIVE (NEGATIVE); LEUKOCYTE ESTERASE ,URINE NEGATIVE (NEGATIVE); NITRITE,URINE NEGATIVE (NEGATIVE); PH,URINE 5 (5-9); PROTEIN,URINE NEGATIVE (NEGATIVE); UROBILINOGEN,URINE NORMAL (NORMAL)
[2019-05-20 18:42] LABS: BACTERIA,URINE NEGATIVE /HPF; RBC,URINE RARE /HPF; SQUAMOUS EPITHELIAL CELL,UR 0-2 /HPF
[2019-05-20 19:35] VITALS: BP 125/79
[2019-05-20] MEDS: diphenhydrAMINE 25 MG TAB (BENADRYL) PO SCH (21:19)
[2019-05-20] MEDS: ACETAMINOPHEN 500 MG TAB (TYLENOL) PO PRN (21:20)
[2019-05-21 00:25] VITALS: BP 129/70
[2019-05-21 04:30] VITALS: BP 153/80
[2019-05-21 05:36] LABS: BASOPHILS % (AUTO) 1 % (0-10); EOSINOPHILS # (AUTO) 0.8 10^3/uL (0.0-0.3); EOSINOPHILS % (AUTO) 25 % (0-10); HEMATOCRIT 33 % (40-54); HEMOGLOBIN 10.8 G/DL (13.3-17.7); LYMPHOCYTES % (AUTO) 32 % (12-44); MEAN CORPUSCULAR HEMOGLOBIN 35 PG (25-34); MEAN CORPUSCULAR HGB CONC 33 G/DL (32-36); MEAN CORPUSCULAR VOLUME 109 FL (80-99); MEAN PLATELET VOLUME 11.6 FL (7.4-10.4); MONOCYTES # (AUTO) 0.5 X 10^3 (0.0-1.0); MONOCYTES % (AUTO) 16 % (0-12); NEUTROPHILS # (AUTO) 0.9 X 10^3 (1.8-7.8); NEUTROPHILS % (AUTO) 26 % (42-75); PLATELET COUNT 63 10^3/uL (130-400); RED CELL DISTRIBUTION WIDTH 16.2 % (10.0-14.5); WHITE BLOOD COUNT 3.2 10^3/uL (4.3-11.0)
[2019-05-21 06:00] LABS: ALANINE AMINOTRANSFERASE 16 U/L (0-55); ALBUMIN 3.2 GM/DL (3.2-4.5); ALKALINE PHOSPHATASE 62 U/L (40-136); BILIRUBIN,TOTAL 0.5 MG/DL (0.1-1.0); BUN/CREATININE RATIO 16; CALCIUM 8.3 MG/DL (8.5-10.1); CARBON DIOXIDE 24 MMOL/L (21-32); CHLORIDE 110 MMOL/L (98-107); CREATININE SERUM 0.92 MG/DL (0.60-1.30); GFR ESTIMATED > 60; GLUCOSE 78 MG/DL (70-105); POTASSIUM 4.1 MMOL/L (3.6-5.0); SODIUM 142 MMOL/L (135-145); TOTAL PROTEIN 4.5 GM/DL (6.4-8.2)
[2019-05-21] MEDS: 1/2 NS W/KCL 20 MEQ/L 1,000 ML IV SCH ×3 (06:30→15:57)
[2019-05-21] MEDS: ASPIRIN E.C. 81 MG (ECOTRIN) TAB PO SCH (07:46)
[2019-05-21 08:30] VITALS: BP 178/80
[2019-05-21] MEDS ORDERED: CLOPIDOGREL 75 MG (PLAVIX) TABLET PO SCH (09:00)
--- NOTE | 2019-05-21 09:20 | Diagnostic Imaging Report ---
INDICATION: Neutropenic fever. Time of exam 9:06 AM Correlation is made with prior chest from one day earlier. Right chest wall port has tip overlying the SVC. The heart size is stable. Trace bilateral effusions again noted. There is some persistent density at the right base consistent with minimal infiltrate or atelectasis. No pneumothorax is seen. IMPRESSION: Overall stable appearance of the chest since exam one day earlier. Dictated by: Dictated on workstation # [id number]
[2019-05-21] MEDS ORDERED: ASPI-999 PO (10:40)
[2019-05-21] MEDS ORDERED: TRAM50TA2 PO (10:41)
[2019-05-21] MEDS ORDERED: HYDR-3812 PO (10:41)
[2019-05-21] MEDS ORDERED: LORA10TA76 PO (10:45)
[2019-05-21] MEDS ORDERED: DIPH25TA65 PO (10:45)
[2019-05-21] MEDS ORDERED: MULT-436 PO (10:45)
[2019-05-21] MEDS ORDERED: ACET325T38 PO (10:45)
[2019-05-21] MEDS ORDERED: CALC625T PO (10:45)
--- NOTE | 2019-05-21 10:47 | NUR ---
SPOKE WITH PT- HE INDICATED I SHOULD CALL HIS DAUGHTER FABIÁN SINCE SHE TAKES CARE OF HIS MEDS. I CALLED HER WELL GOING OVER THE EXT MED HISTORY TO COMPLETE THE MED REC. METHOTREXATE 2.5M TABS EVERY TUESDAY REVLIMID; TAKES ONCE DAILY FOR 21 DAYS, THEN STOPS FOR 7 DAYS THEN STOPS CYCLE AGAIN. HE NEEDS TO TAKE 4 MORE DAYS TO COMPLETE THIS ROUND OF THERAPY. POTASSIUM IS SHOWN ON THE EXT MED HISTORY BUT THE PT IS NO LONGER TAKING. HYDROCODONE: DAUGHTER STATES HE ONLY TAKES THIS PRN AND WHEN HE DOES ITS ONLY 1 TAB DAILY TRAMADOL: SAME THE NOTE ABOVE- ONLY PRN AND ONLY 1 TAB DAILY OTC MEDS: ASPIRIN 81M DAILY DIPHENDYDRAMINE 25M HS PRN SLEEP MULTIVITAMIN: 1 DAILY FIBERCON: 2 TABS DAILY LORATADINE 10M DAILY ACETAMINOPHEN 325M TAB Q 8 H PRN
[2019-05-21 12:00] VITALS: BP 158/73
[2019-05-21] MEDS: CEFEPIME 2,000 MG/SWFI 20 ML IV PUSH IV SCH ×2 (12:50)
[2019-05-21 16:00] VITALS: BP 134/72
--- NOTE | 2019-05-21 16:23 | History & Physical ---
HPI History of Present Illness: 88 yo M that presented to ER after daughters encouraged patient to come. 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 Patient states that for the last 2-3 days he has been more weak and fatigued then normal and his daughters had taken his tem perature and he had been running a low grade temp but he is unable to remember what the numbers were. States that he was coughing but that has improved since arriving at the hospital. Denies any increase in urination or burning with urination. Denies any chills. No new wounds or sores per patient. Has not been around anyone with acute illness. States that he is unsure when his last appt with his oncologist was. Source: patient, RN/MD, old records Exam Limitations: no limitations Date seen by provider: May 21, 2019 Time Seen by Provider: 10:30 Attending Physician Keturah Swift MD PCP Jovanny Granados MD Consult Date of Admission May 20, 2019 at 13:00 Home Medications Home Medications Reviewed patient Home Medication Reconciliation performed by pharmacy medication reconciliations film laboratory technician and/or nursing. Patients Allergies have been reviewed. Allergies Coded Allergies: No Known Drug Allergies (Unverified , 05/20/19) BLR-Prijyo-Xtgjms Hx Patient Social History Living Status: Lives at home Alcohol Use: Denies Use Recreational Drug Use: No Smoking Status: Never a Smoker 2nd Hand Smoke Exposure: No Recent Foreign Travel: No Contact w/other who traveled: No Recent Hopitalizations: No Recent Infectious Disease Expo: No Physical Abuse Screen: No Sexual Abuse: No Immunizations Up To Date Date of Pneumonia Vaccine: Jun 12, 2017 Date of Influenza Vaccine: Jun 12, 2019 Past Medical History Leukemia on oral chemo BPH Family Medical History Significant Family History: No Pertinent Family Hx Review of Systems ([facility]) Constitutional: No chills, No dizziness; fever, malaise, weakness EENTM: no symptoms reported; No mouth pain, No mouth swelling, No nose congestion, No nose pain, No throat pain, No throat swelling Respiratory: cough; No dyspnea on exertion, No orthopnea, No short of breath Cardiovascular: no symptoms reported; No chest pain, No edema, No palpitations Gastrointestinal: no symptoms reported; No abdominal pain, No constipation, No diarrhea, No nausea, No vomiting Genitourinary: no symptoms reported; No dysuria, No frequency, No hematuria Musculoskeletal: no symptoms reported; No back pain, No joint pain, No muscle pain Skin: no symptoms reported; No lesions, No rash Psychiatric/Neurological: Denies Headache, Denies Numbness; Weakness Reviewed Test Results Reviewed Test Results Lab Laboratory Tests Test 05/20/19 18:20 05/21/19 05:23 Range/Units Urine Color YELLOW Urine Clarity CLEAR Urine pH 5 5-9 Urine Specific [place] 1.015 L 1.016-1.022 Urine Protein NEGATIVE NEGATIVE Urine Glucose (UA) NEGATIVE NEGATIVE Urine Ketones NEGATIVE NEGATIVE Urine Nitrite NEGATIVE NEGATIVE Urine Bilirubin NEGATIVE NEGATIVE Urine Urobilinogen NORMAL NORMAL MG/DL Urine Leukocyte Esterase NEGATIVE NEGATIVE Urine RBC (Auto) 1+ H NEGATIVE Urine RBC RARE /HPF Urine WBC NONE /HPF Urine Squamous Epithelial Cells 0-2 /HPF Urine Crystals NONE /LPF Urine Bacteria NEGATIVE /HPF Urine Casts NONE /LPF Urine Mucus NEGATIVE /LPF Urine Culture Indicated NO White Blood Count 3.2 L 4.3-11.0 10^3/uL Red Blood Count 3.05 L 4.35-5.85 10^6/uL Hemoglobin 10.8 L 13.3-17.7 G/DL Hematocrit 33 L 40-54 % Mean Corpuscular Volume 109 H 80-99 FL Mean Corpuscular Hemoglobin 35 H 25-34 PG Mean Corpuscular Hemoglobin Concent 33 32-36 G/DL Red Cell Distribution Width 16.2 H 10.0-14.5 % Platelet Count 63 L 130-400 10^3/uL Mean Platelet Volume 11.6 H 7.4-10.4 FL Neutrophils (%) (Auto) 26 L 42-75 % Lymphocytes (%) (Auto) 32 12-44 % Monocytes (%) (Auto) 16 H 0-12 % Eosinophils (%) (Auto) 25 H 0-10 % Basophils (%) (Auto) 1 0-10 % Neutrophils # (Auto) 0.9 L 1.8-7.8 X 10^3 Lymphocytes # (Auto) 1.0 1.0-4.0 X 10^3 Monocytes # (Auto) 0.5 0.0-1.0 X 10^3 Eosinophils # (Auto) 0.8 H 0.0-0.3 10^3/uL Basophils # (Auto) 0.0 0.0-0.1 10^3/uL Sodium Level 142 135-145 MMOL/L Potassium Level 4.1 3.6-5.0 MMOL/L Chloride Level 110 H 98-107 MMOL/L Carbon Dioxide Level 24 21-32 MMOL/L Anion Gap 8 5-14 MMOL/L Blood Urea Nitrogen 15 7-18 MG/DL Creatinine 0.92 0.60-1.30 MG/DL Estimat Glomerular Filtration Rate > 60 BUN/Creatinine Ratio 16 Glucose Level 78 70-105 MG/DL Calcium Level 8.3 L 8.5-10.1 MG/DL Corrected Calcium 8.9 8.5-10.1 MG/DL Total Bilirubin 0.5 0.1-1.0 MG/DL Aspartate Amino Transf (AST/SGOT) 19 5-34 U/L Alanine Aminotransferase (ALT/SGPT) 16 0-55 U/L Alkaline Phosphatase 62 40-136 U/L Total Protein 4.5 L 6.4-8.2 GM/DL Albumin 3.2 3.2-4.5 GM/DL Physical Exam-([facility]) Physical Exam Vital Signs VS - Last 72 Hours, by Label 05/20/19 05/20/19 05/20/19 05/20/19 10:30 13:17 14:10 14:10 Temp 36.25128 36.10910 36.23186 36.61776 Pulse 62 45 52 55 Resp 20 16 18 19 B/P (MAP) 152/68 (96) 142/70 (94) 149/90 (109) 149/90 Pulse Ox 94 95 94 94 O2 Delivery Room Air Room Air Room Air Room Air 05/20/19 05/20/19 05/20/19 05/20/19 16:25 19:35 19:45 21:10 Temp 36.37498 38.30366 37.26777 Pulse 56 62 Resp 20 20 B/P (MAP) 167/88 (114) 125/79 (94) Pulse Ox 97 94 O2 Delivery Room Air Room Air Room Air 05/20/19 05/21/19 05/21/19 05/21/19 21:20 00:12 00:25 04:30 Temp 38.60049 36.48385 36.00926 36.49081 Pulse 51 52 Resp 18 18 B/P (MAP) 129/70 (89) 153/80 (104) Pulse Ox 94 97 O2 Delivery Room Air Room Air 05/21/19 05/21/19 05/21/19 08:00 08:30 12:00 Temp 36.1 36.2 Pulse 57 57 Resp 22 19 B/P (MAP) 178/80 158/73 Pulse Ox 97 97 96 O2 Delivery Room Air Room Air Room Air Capillary Refill : Less Than 3 Seconds General Appearance: WD/WN, no apparent distress, thin HEENT: PERRL/EOMI, pharynx normal Neck: non-tender, full range of motion, supple, normal inspection Respiratory: chest non-tender, lungs clear, normal breath sounds, no respiratory distress, no accessory muscle use Cardiovascular: normal peripheral pulses, regular rate, rhythm, no edema, no murmur Gastrointestinal: normal bowel sounds, non tender, soft, no organomegaly Back: no CVA tenderness, no vertebral tenderness Extremities: normal range of motion, non-tender, normal inspection, no pedal edema, no calf tenderness, normal capillary refill Neurologic/Psychiatric: digital media manager II-XII nml as tested, no motor/sensory deficits, alert, normal mood/affect, oriented x 3 Skin: normal color, warm/dry Lymphatic: no adenopathy Assessment/Plan Assessment/Plan Admission Status: Inpatient Order (span 2 midnights) Reason for Inpatient Admission: Patient with neutropenia and fever requires close monitoring and IV antibiotics (1) Neutropenic fever Status: Acute Assessment & Plan: - Will cover with broad spectrum antibiotics, patient does not meet sepsis criteria but is high risk of developing sepsis, Blood cultures/urine cultures pending, Will get culture from port today (2) Cough Status: Acute Assessment & Plan: - CXR does not show occult PNA, Will cover for PNA vs bronchitis (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
[2019-05-21] MEDS: ACETAMINOPHEN 500 MG TAB (TYLENOL) PO PRN (16:56)
[2019-05-21] MEDS: ENOXAPARIN 40 MG/0.4 ML (LOVENOX) SYR SQ SCH (17:33)
[2019-05-21] MEDS: TAMSULOSIN 0.4 MG (FLOMAX) CAP PO SCH (18:42)
[2019-05-21] MEDS: TBO-FILGRASTIM 480 MCG/0.8 ML (GRANIX) SQ SCH (19:55)
[2019-05-21] MEDS: diphenhydrAMINE 25 MG TAB (BENADRYL) PO SCH (19:55)
[2019-05-21 20:03] VITALS: BP 121/66
[2019-05-22] VITALS: BP 160/89
--- NOTE | 2019-05-22 01:57 | CONSULTATION REPORT ---
DATE OF SERVICE: 05/21/2019 The patient is admitted to room 429, bed 1. IMPRESSION: 1. An 88-year-old male admitted with neutropenic fever. 2. Right lower lobe pneumonia. 3. 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 4. On chemotherapy with weekly methotrexate and Revlimid. 5. Pancytopenia due to above. RECOMMENDATIONS: 1. Hold methotrexate and Revlimid as you are doing. 2. Continue broad spectrum antibiotic therapy for neutropenic fever. 3. Start the patient on Neupogen 480 mcg subcutaneously daily until ANC approximately 10,000. 4. Once the patient is stable and improved from pneumonia, may discharged back to the care of his primary oncologist. BRIEF HISTORY: The patient is an 88-year-old male, who was evaluated at [facility] with increasing weakness and cough. He was noted to have a fever of 100.5 degree Fahrenheit or above and pancytopenia. Because of this, he was transferred to [facility] for inpatient admission, broad spectrum antibiotic therapy and further evaluation. He has history of large granular lymphocytic leukemia and cutaneous large B-cell non-Hodgkin's lymphoma since several years. He has been on chemotherapy for this and most recently was on methotrexate weekly and Revlimid daily for 21 days with a 7-day break. He has also required erythropoietin therapy weekly and Neupogen intermittently in the past. Family indicated that he was also receiving subcutaneous injection on a monthly basis, but is unsure what the medicine was. The patient indicated that he is feeling slightly better, but is still very weak today. He is not having temperature spikes in the past 24 hours. No shaking chills. PAST MEDICAL HISTORY: Is significant for the large granular lymphocytic leukemia as well as cutaneous large B-cell non-Hodgkin's lymphoma diagnosed several years ago. He was initially treated with combined chemotherapy and Rituxan with some benefit, but when he had the disease recurred, he was restarted on similar agents with minimal to no response. Most recently, he is on treatment with Revlimid for 21 days with 7-day break and methotrexate weekly. Disease is under fair control, but he is requiring a lot of supportive care to continue the treatment. SOCIAL HISTORY: The patient is and lives in [place], [place]. 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 He denied any significant exposure to chemicals during his lifetime. FAMILY HISTORY: Relatively unremarkable and noncontributory. PHYSICAL EXAMINATION: GENERAL: Showed an elderly male, well-developed and nourished, awake and oriented, weak appearing, otherwise in no acute distress. VITAL SIGNS: Temperature was 36 degree centigrade, pulse rate of 71, respirations 18, blood pressure 134/72 with oxygen saturation of 98% on room air. HEENT: Normocephalic with male pattern baldness, extraocular muscles intact, conjunctivae pale, oral mucosa moist without lesions. NECK: Supple, with no JVD. No cervical, supraclavicular or axillary lymphadenopathy palpable. CHEST: Symmetrical. LUNGS: With diminished breath sounds in the right base with few rhonchi. No wheezes or rales heard. CARDIOVASCULAR: Regular in rate and rhythm. Grade II early systolic murmur was heard. ABDOMEN: Soft, nontender with no hepatosplenomegaly or other masses palpable. EXTREMITIES: Showed several patches in his lower extremities related to cutaneous diffuse large B-cell non-Hodgkin's lymphoma. NEUROLOGIC: Showed no focal motor deficits. Overall, motor strength was 4/5 bilaterally. LABORATORY DATA: CBC done today showed total white count of 3.2, hemoglobin 10.8, platelet count 63,000 with neutrophil count 0.9, lymphocyte count 1.0, monocyte count 0.5 and eosinophil count 0.8. Chemistry panel today showed relatively normal electrolytes. BUN was 15 and creatinine 0.92 with GFR more than 60 mL per minute. Liver function studies were within normal limits. Urinalysis was unremarkable. Chest x-ray done today showed trace bilateral effusions noted. Persistent density at the right base consistent with minimal infiltrate or atelectasis. No pneumothorax. Thank you for allowing me to participate in this patient's care. I will follow the patient with you and make appropriate recommendations. Job ID: [id number] DocumentID: [id number] Dictated Date: 05/21/2019 18:55:10 Hog Operator Date: 05/22/2019 01:56:26 Dictated By: MD RICARDO SUGGS
[2019-05-22 04:00] VITALS: BP 170/82
[2019-05-22 05:30] LABS: BASOPHILS % (AUTO) 0 % (0-10); EOSINOPHILS # (AUTO) 0.7 10^3/uL (0.0-0.3); EOSINOPHILS % (AUTO) 14 % (0-10); HEMATOCRIT 32 % (40-54); HEMOGLOBIN 10.5 G/DL (13.3-17.7); LYMPHOCYTES # (AUTO) 0.7 X 10^3 (1.0-4.0); LYMPHOCYTES % (AUTO) 14 % (12-44); MEAN CORPUSCULAR HEMOGLOBIN 35 PG (25-34); MEAN CORPUSCULAR HGB CONC 32 G/DL (32-36); MEAN CORPUSCULAR VOLUME 108 FL (80-99); MEAN PLATELET VOLUME 10.1 FL (7.4-10.4); MONOCYTES # (AUTO) 0.8 X 10^3 (0.0-1.0); MONOCYTES % (AUTO) 17 % (0-12); NEUTROPHILS # (AUTO) 2.6 X 10^3 (1.8-7.8); NEUTROPHILS % (AUTO) 54 % (42-75); PLATELET COUNT 68 10^3/uL (130-400); RED CELL DISTRIBUTION WIDTH 16.2 % (10.0-14.5); WHITE BLOOD COUNT 4.8 10^3/uL (4.3-11.0)
[2019-05-22 05:45] LABS: BUN/CREATININE RATIO 21; CARBON DIOXIDE 23 MMOL/L (21-32); CHLORIDE 111 MMOL/L (98-107); CREATININE SERUM 0.82 MG/DL (0.60-1.30); GFR ESTIMATED > 60; GLUCOSE 76 MG/DL (70-105); POTASSIUM 3.9 MMOL/L (3.6-5.0); SODIUM 142 MMOL/L (135-145)
[2019-05-22 08:00] VITALS: BP 177/83
[2019-05-22] MEDS: ASPIRIN E.C. 81 MG (ECOTRIN) TAB PO SCH (09:27)
[2019-05-22] MEDS: ACETAMINOPHEN 500 MG TAB (TYLENOL) PO PRN (09:28)
[2019-05-22] MEDS: 1/2 NS W/KCL 20 MEQ/L 1,000 ML IV SCH (09:39)
[2019-05-22] MEDS: TBO-FILGRASTIM 480 MCG/0.8 ML (GRANIX) SQ SCH (09:41)
[2019-05-22] MEDS: CEFEPIME 2,000 MG/SWFI 20 ML IV PUSH IV SCH ×2 (11:42)
[2019-05-22 11:57] VITALS: BP 168/84
--- NOTE | 2019-05-22 13:59 | NUR ---
Pastoral care visit.
[2019-05-22 15:46] VITALS: BP 170/78
[2019-05-22] MEDS: ENOXAPARIN 40 MG/0.4 ML (LOVENOX) SYR SQ SCH (16:14)
--- NOTE | 2019-05-22 16:19 | Progress Note ---
Standard Progress Note Progress Notes/Assess & Plan Date Seen by a Provider: May 22, 2019 Time Seen by a Provider: 16:16 Progress/Assessment & Plan 88-year-old male with cutaneous diffuse large B cell non-Hodgkin's lymphoma and large granular lymphocytic leukemia who was on treatment with weekly methotrexate and daily Revlimid, admitted to the hospital with neutropenic fever. Chest x-ray with the right lower lobe pneumonia and on broad spectrum antibiotics. Started on G-CSF 480 g subcutaneous daily because of neutropenic fever. WBC 4.8 today with ANC 2.3. Continue G-CSF until ANC more than 10,000. Patient is feeling better and denied any temperature spikes or chills. Increase activity as tolerated with physical therapy. Focused Exam Lactate Level 05/20/19 11:00: Lactic Acid Level 1.77 Time of Focused Exam: 12:30 AYAD KRAUSE May 22, 2019 16:19
[2019-05-22] MEDS: TAMSULOSIN 0.4 MG (FLOMAX) CAP PO SCH (17:58)
--- NOTE | 2019-05-22 18:18 | Progress Note ---
Subjective Subjective/Events-last exam Patient doing better this AM. States that cough is improving and he is feeling stronger. Tolerating PO diet. Denies pain. Review of Systems General: No Chills; Fatigue Pulmonary: No Dyspnea; Cough Cardiovascular: No: Chest Pain, Palpitations, Edema Gastrointestinal: No: Nausea, Vomiting, Abdominal Pain Genitourinary: No Dysuria, No Frequency, No Incontinence Neurological: Weakness Focused Exam Lactate Level 05/20/19 11:00: Lactic Acid Level 1.77 Time of Focused Exam: 12:30 Objective Exam Last Set of Vital Signs Vital Signs Date Time Temp Pulse Resp B/P (MAP) Pulse Ox O2 Delivery O2 Flow Rate FiO2 05/22/19 15:46 36.9 53 20 170/78 97 Room Air Capillary Refill : Less Than 3 SecondsLess Than 3 Seconds I&O Intake and Output 05/22/19 00:00 Intake Total 3010 ml Output Total 1875 ml Balance 1135 ml Intake Oral 990 ml IV Total 2020 ml Output Urine Total 1875 ml # Voids 2 # Bowel Movements 2 General: Alert, Oriented X3, Cooperative, No Acute Distress HEENT: Mucous Memb Moist/[place] Lungs: Clear to Auscultation, Normal Air Movement Heart: Regular Rate, No Murmurs Abdomen: Normal Bowel Sounds, Soft, No Tenderness, No Masses Extremities: No Edema, No Tenderness/Swelling Skin: No Rashes, No Breakdown Neuro: Normal Speech, Sensation Intact, Cranial Nerves 3-12 NL Psych/Mental Status: Mental Status NL, Mood NL Results/Procedures Lab Laboratory Tests 05/22/19 05:22: White Blood Count 4.8, Red Blood Count 3.01L, Hemoglobin 10.5L, Hematocrit 32L, Mean Corpuscular Volume 108H, Mean Corpuscular Hemoglobin 35H, Mean Corpuscular Hemoglobin Concent 32, Red Cell Distribution Width 16.2H, Platelet Count 68L, Mean Platelet Volume 10.1, Neutrophils (%) (Auto) 54, Lymphocytes (%) (Auto) 14, Monocytes (%) (Auto) 17H, Eosinophils (%) (Auto) 14H, Basophils (%) (Auto) 0, Neutrophils # (Auto) 2.6, Lymphocytes # (Auto) 0.7L, Monocytes # (Auto) 0.8, Eosinophils # (Auto) 0.7H, Basophils # (Auto) 0.0, Sodium Level 142, Potassium Level 3.9, Chloride Level 111H, Carbon Dioxide Level 23, Anion Gap 8, Blood Urea Nitrogen 17, Creatinine 0.82, Estimat Glomerular Filtration Rate > 60, BUN/Creatinine Ratio 21, Glucose Level 76, Calcium Level 8.0L Microbiology 05/21/19 Blood Culture - Preliminary, Resulted No growth 05/20/19 Influenza Types A,B Antigen (CHRISTOPHER) - Final, Complete Assessment/Plan Assessment/Plan (1) Neutropenic fever Status: Acute Assessment & Plan: - Will cover with broad spectrum antibiotics, patient does not meet sepsis criteria but is high risk of developing sepsis, Blood cultures/urine cultures pending, Will get culture from port today 05/22 NGTD from blood, urine or port, will continue broad spectrum antibiotics to cover for PNA, will narrow tomorrow when cultures are final, Onc consulted and waiting for ANC of 10, then plan for discharge to complete antibiotics (2) Cough Status: Acute Assessment & Plan: - CXR does not show occult PNA, Will cover for PNA vs bronchitis (3) 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
[2019-05-22 20:00] VITALS: BP 172/55
[2019-05-22] MEDS: diphenhydrAMINE 25 MG TAB (BENADRYL) PO SCH (21:27)
[2019-05-23] VITALS (7 sets, daily range): BP systolic 126–176; BP diastolic 70–85
[2019-05-23] MEDS: 1/2 NS W/KCL 20 MEQ/L 1,000 ML IV SCH (04:16)
[2019-05-23 05:25] LABS: BASOPHILS % (AUTO) 1 % (0-10); EOSINOPHILS # (AUTO) 0.5 10^3/uL (0.0-0.3); EOSINOPHILS % (AUTO) 10 % (0-10); HEMATOCRIT 32 % (40-54); HEMOGLOBIN 10.6 G/DL (13.3-17.7); LYMPHOCYTES # (AUTO) 0.9 X 10^3 (1.0-4.0); LYMPHOCYTES % (AUTO) 17 % (12-44); MEAN CORPUSCULAR HEMOGLOBIN 35 PG (25-34); MEAN CORPUSCULAR HGB CONC 33 G/DL (32-36); MEAN CORPUSCULAR VOLUME 106 FL (80-99); MEAN PLATELET VOLUME 10.1 FL (7.4-10.4); MONOCYTES # (AUTO) 0.8 X 10^3 (0.0-1.0); MONOCYTES % (AUTO) 15 % (0-12); NEUTROPHILS % (AUTO) 58 % (42-75); PLATELET COUNT 70 10^3/uL (130-400); RED CELL DISTRIBUTION WIDTH 15.7 % (10.0-14.5); WHITE BLOOD COUNT 5.3 10^3/uL (4.3-11.0)
[2019-05-23] MEDS: TBO-FILGRASTIM 480 MCG/0.8 ML (GRANIX) SQ SCH (08:49)
[2019-05-23] MEDS: ASPIRIN E.C. 81 MG (ECOTRIN) TAB PO SCH (08:49)
[2019-05-23] MEDS: CEFEPIME 2,000 MG/SWFI 20 ML IV PUSH IV SCH ×4 (08:52→20:30)
--- NOTE | 2019-05-23 08:57 | NUR ---
[employer] system down from [phone]
--- NOTE | 2019-05-23 09:24 | NUR ---
Pt lives alone but states his two daughters live nearby and do everything for him. He walks with the use of a front wheel walker. He feels imprived but weak. will follow and assist with continued care needs.
--- NOTE | 2019-05-23 11:03 | Physical Therapy Evaluation ---
PT Evaluation-General Medical Diagnosis Admission Date May 20, 2019 at 13:00 Medical Diagnosis: NEUTRIPENIC FEVER Onset Date: May 20, 2019 Therapy Diagnosis Therapy Diagnosis: impaired mobility, strength, endurnace Height/Weight Height (Feet): 5 Height (Inches): 11.00 Weight (Pounds): 184 Weight (Ounces): 1.0 Precautions Precautions/Isolations: Chemo Precautions, Fall Prevention, Standard Precautions, Pressure Ulcer Weight Bear Status Right Lower Extremity: Right Weight Bearing/Tolerated Left Lower Extremity: Left Weight Bearing/Tolerated Referral Physician: Keturah Swift MD Reason for Referral: Evaluation/Treatment Medical History Additional Medical History Past Medical History Surgeries: Yes (heart stents, hernia x 2, joint replacement: toe and knee) Joint Replacement Respiratory: No Cardiac: Yes Coronary Artery Disease Neurological: No Reproductive Disorders: No Sexually Transmitted Disease: No Genitourinary: No Gastrointestinal: Yes Chronic Constipation Musculoskeletal: Yes Arthritis Endocrine: No Cancer: Yes (Lg granular lymphocytic leukemia, cutaneous diffuse lg B-cell lymphoma) Leukemia, Lymphoma Did You Recieve Any Treatments: Yes What Type of Treatment Did You: Other Psychosocial: No Integumentary: No Blood Disorders: No Reviewed History: Yes Social History Home: Single Level Current Living Status: Alone Entry Into Home: Level Entry Prior/Core FIM Prior Level of Function Therapy Code Descriptions/Definitions Functional [place] Measure: 0=Not Assessed/NA 4=Minimal Assistance 1=Total Assistance 5=Supervision or Setup 2=Maximal Assistance 6=Modified [place] 3=Moderate Assistance 7=Complete [place] Therapy Quality Codes: 6 Independent with activity with or without an assistive device 5 Patient requires set up or clean up by helper. Patient completes activity by themselves 4 Supervision or touching assist (CGA). [place] provide cues , steadying assist 3 The helper provides less than half the effort to complete the activity 2 The helper provides more than half the effort to complete the activity 1 Dependent. The helper does all the effort to complete an activity 7 Patient refused to complete or attempt activity 9 The patient did not perform the activity before the current illness or injury 88 Not attempted due to Medical conditions or safety concerns Functional Abilities and Goals: Independent: Patient completed the activities by him/herself, with or without an assistive device, with no assistance from a helper. Needed Some Help: Patient needed partial assistance from another person to complete activities. Dependent: A helper completed the activities for the patient. Unknown: Not Applicable: Bed Mobility: 6 Transfers (B,C,W/C) (FIM): 6 Gait: 6 Indoor Mobility (Ambulation): Independent Patient states he was using a rolling walker previously. PT Evaluation-Current Subjective Patient in recliner pre tx, agrees to PT, no complaints of pain at rest. Pt/Family Goals to be independent at home Objective Patient Orientation: Person, Place, Situation Attachments: IV ROM/Strength ROM Lower Extremities WNL Strength Lower Extremities 4+/5 gross BLE Sensory Hearing: Functional Sensation Right Lower Extremit: Intact Sensation Left Lower Extremity: Intact Transfers Therapy Code Descriptions/Definitions Functional [place] Measure: 0=Not Assessed/NA 4=Minimal Assistance 1=Total Assistance 5=Supervision or Setup 2=Maximal Assistance 6=Modified [place] 3=Moderate Assistance 7=Complete [place] Transfers (B, C, W/C) (FIM): 5 Sit to/from Stand: 5 Gait Mode of Locomotion: Walk Anticipated Mode of Locomotion: Walk Gait (FIM): 5 Distance: 200' Gait Level of Assist: 5 Gait Persons Needed: 1 Gait Assistive Device: FWW Comments/Gait Description slow but steady except on turns, no LOB Balance Sitting Static: Normal Sitting Dynamic: Normal Standing Static: Good Standing Dynamic: Fair Treatment BLE seated exercises x15 (AP, LAQ) Assessment/Needs Patient has impaired mobility, strength, endurance. Patient would benefit from PT once daily for strengthening and endurance training and ambulation. Rehab Potential: Fair PT Short Term Goals Short Term Goals Time Frame: May 30, 2019 Transfers (B,C,W/C) (FIM): 6 Gait (FIM): 6 Gait Distance Comment: 300' Gait Assistive Device: FWW PT Plan Problem List Problem List: Activity Tolerance, Functional Strength, Safety, Balance, Gait, Transfer, Bed Mobility Treatment/Plan Treatment Plan: Continue Plan of Care Treatment Plan: Bed Mobility, Education, Functional Activity Zoraida, Functional Strength, Gait, Safety, Therapeutic Exercise, Transfers Treatment Duration: May 30, 2019 Frequency: 6 times per week Estimated Hrs Per Day: .25 hour per day Patient and/or Family Agrees t: Yes Safety Risks/Education Patient Education: Gait Training, Transfer Techniques, Correct Positioning, Safety Issues Teaching Recipient: Patient Teaching Methods: Demonstration, Discussion Response to Teaching: Reinforcement Needed Discharge Recommendations Plan Patient will perform bed mobility and transfer training, balance and endurance training, functional strengthening, gait training, and education, to improve functional mobility and independence at home. Therapy Discharge Recommendati: Intermittent Supervision, Scheduled Assistance Time/GCodes Time In: 1041 Time Out: 1053 Total Billed Treatment Time: 12 Total Billed Treatment 1 visit JULIUS PEREZ PT May 23, 2019 11:03
--- NOTE | 2019-05-23 14:36 | Progress Note ---
Subjective Subjective/Events-last exam Patient doing well this AM. No concerns. Tolerating PO diet and getting up with PT. Review of Systems Pulmonary: No Dyspnea, No Cough Cardiovascular: No: Chest Pain, Palpitations Gastrointestinal: No: Nausea, Vomiting, Abdominal Pain, Diarrhea, Constipation Neurological: Weakness, Incoordination Focused Exam Time of Focused Exam: 12:30 Objective Exam Last Set of Vital Signs Vital Signs Date Time Temp Pulse Resp B/P (MAP) Pulse Ox O2 Delivery O2 Flow Rate FiO2 05/23/19 12:00 36.8 70 18 139/71 96 Room Air Capillary Refill : Less Than 3 SecondsLess Than 3 Seconds I&O Intake and Output 05/23/19 00:00 Intake Total 2100 ml Output Total 3000 ml Balance -900 ml Intake Oral 1080 ml IV Total 1020 ml Output Urine Total 3000 ml # Voids 4 General: Alert, Oriented X3, Cooperative, No Acute Distress Lungs: Clear to Auscultation, Normal Air Movement Heart: Regular Rate, No Murmurs Abdomen: Normal Bowel Sounds, Soft, No Tenderness, No Masses Extremities: No Edema, No Tenderness/Swelling Results/Procedures Lab Laboratory Tests 05/23/19 05:16: White Blood Count 5.3, Red Blood Count 3.02L, Hemoglobin 10.6L, Hematocrit 32L, Mean Corpuscular Volume 106H, Mean Corpuscular Hemoglobin 35H, Mean Corpuscular Hemoglobin Concent 33, Red Cell Distribution Width 15.7H, Platelet Count 70L, Mean Platelet Volume 10.1, Neutrophils (%) (Auto) 58, Lymphocytes (%) (Auto) 17, Monocytes (%) (Auto) 15H, Eosinophils (%) (Auto) 10, Basophils (%) (Auto) 1, Neutrophils # (Auto) 3.0, Lymphocytes # (Auto) 0.9L, Monocytes # (Auto) 0.8, Eosinophils # (Auto) 0.5H, Basophils # (Auto) 0.0 Microbiology 05/21/19 Blood Culture - Preliminary, Resulted No growth 05/20/19 Influenza Types A,B Antigen (CHRISTOPHER) - Final, Complete Assessment/Plan Assessment/Plan (1) Neutropenic fever Status: Acute Assessment & Plan: - Will cover with broad spectrum antibiotics, patient does not meet sepsis criteria but is high risk of developing sepsis, Blood cultures/urine cultures pending, Will get culture from port today 05/22 NGTD from blood, urine or port, will continue broad spectrum antibiotics to cover for PNA, will narrow tomorrow when cultures are final, Onc consulted and waiting for ANC of 10, then plan for discharge to complete antibiotics 05/23: Cultures remain neg, waiting for ANC >10, plan for d/c tomorrow, case discussed with Dr Flor (2) Cough Status: Acute Assessment & Plan: - CXR does not show occult PNA, Will cover for PNA vs bronchitis (3) 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
--- NOTE | 2019-05-23 16:52 | NUR ---
Pt anxious today as wanting discharged, Talked with daughter and she will be here this evening and visit. Pt and daughter understand that pt may be discharged tomorrow after his infusion and injecition. Pt counting on discharge as early as possible.Apparently ihehas family visiting from [place] and would like to be discharged home.Daughter Bernadette will provide transportation to his home in [place] when discharged.
[2019-05-23] MEDS: TAMSULOSIN 0.4 MG (FLOMAX) CAP PO SCH (17:58)
[2019-05-23] MEDS: ENOXAPARIN 40 MG/0.4 ML (LOVENOX) SYR SQ SCH (17:58)
[2019-05-23] MEDS: diphenhydrAMINE 25 MG TAB (BENADRYL) PO SCH (20:30)
[2019-05-23] MEDS: ACETAMINOPHEN 500 MG TAB (TYLENOL) PO PRN (20:30)
[2019-05-24] MEDS: 1/2 NS W/KCL 20 MEQ/L 1,000 ML IV SCH (00:54)
[2019-05-24 04:06] VITALS: BP 163/79
[2019-05-24 05:38] LABS: BASOPHILS % (AUTO) 1 % (0-10); EOSINOPHILS # (AUTO) 0.5 10^3/uL (0.0-0.3); EOSINOPHILS % (AUTO) 8 % (0-10); HEMATOCRIT 31 % (40-54); HEMOGLOBIN 10.3 G/DL (13.3-17.7); LYMPHOCYTES # (AUTO) 0.9 X 10^3 (1.0-4.0); LYMPHOCYTES % (AUTO) 14 % (12-44); MEAN CORPUSCULAR HEMOGLOBIN 35 PG (25-34); MEAN CORPUSCULAR HGB CONC 33 G/DL (32-36); MEAN CORPUSCULAR VOLUME 107 FL (80-99); MEAN PLATELET VOLUME 10.7 FL (7.4-10.4); MONOCYTES # (AUTO) 1.3 X 10^3 (0.0-1.0); MONOCYTES % (AUTO) 21 % (0-12); NEUTROPHILS # (AUTO) 3.7 X 10^3 (1.8-7.8); NEUTROPHILS % (AUTO) 57 % (42-75); PLATELET COUNT 71 10^3/uL (130-400); RED CELL DISTRIBUTION WIDTH 16.2 % (10.0-14.5); WHITE BLOOD COUNT 6.5 10^3/uL (4.3-11.0)
[2019-05-24 05:57] LABS: BUN/CREATININE RATIO 18; CALCIUM 7.9 MG/DL (8.5-10.1); CARBON DIOXIDE 23 MMOL/L (21-32); CHLORIDE 110 MMOL/L (98-107); CREATININE SERUM 0.78 MG/DL (0.60-1.30); GFR ESTIMATED > 60; GLUCOSE 79 MG/DL (70-105); POTASSIUM 3.4 MMOL/L (3.6-5.0); SODIUM 141 MMOL/L (135-145)
[2019-05-24 07:56] VITALS: BP 158/77
[2019-05-24] MEDS: CEFEPIME 2,000 MG/SWFI 20 ML IV PUSH IV SCH ×2 (09:18)
[2019-05-24] MEDS: TBO-FILGRASTIM 480 MCG/0.8 ML (GRANIX) SQ SCH (09:18)
[2019-05-24] MEDS: ASPIRIN E.C. 81 MG (ECOTRIN) TAB PO SCH (09:18)
--- NOTE | 2019-05-24 10:45 | NUR ---
Pt pleased that he can be discharged today. His daughter Bernadette is aware of discharge and is working with mary Yu's RN for discharge time. Pt states that his two daughters are his caregivers and will assist him upon discharge.
--- NOTE | 2019-05-24 11:04 | Physical Therapy Daily Note ---
PT Daily Note-Current Subjective Patient reports he is going home today. Agrees to PT. Pain Numeric Pain Scale: 0-No Pain Location: No Pain Reported Mental Status Patient Orientation: Normal For Age Attachments: IV Transfers Therapy Code Descriptions/Definitions Functional [place] Measure: 0=Not Assessed/NA 4=Minimal Assistance 1=Total Assistance 5=Supervision or Setup 2=Maximal Assistance 6=Modified [place] 3=Moderate Assistance 7=Complete [place] Therapy Quality Codes: 6 Independent with activity with or without an assistive device 5 Patient requires set up or clean up by helper. Patient completes activity by themselves 4 Supervision or touching assist (CGA). [place] provide cues , steadying assist 3 The helper provides less than half the effort to complete the activity 2 The helper provides more than half the effort to complete the activity 1 Dependent. The helper does all the effort to complete an activity 7 Patient refused to complete or attempt activity 9 The patient did not perform the activity before the current illness or injury 88 Not attempted due to Medical conditions or safety concerns Transfers (B, C, W/C) (FIM): 6 Scootin Sit to/from Stand: 6 Bed to/from Chair: 6 Weight Bearing Right Lower Extremity: Right Weight Bearing/Tolerated Left Lower Extremity: Left Weight Bearing/Tolerated Gait Training Gait (FIM): 6 Distance (FIM): 3=150 ft Distance: 250' Gait Level of Assist: 6 Gait Assistive Device: FWW assist for IV pole/noted steady, kyphotic posture, reciprocal gait sequence Exercises Seated Therapy Exercises: Ankle pumps, Long arc quads Seated Reps: 15 Assessment Patient tolerated treatment well and is up in recliner with needs met. PT will continue until dismissal. PT Short Term Goals Short Term Goals Time Frame: May 30, 2019 Transfers (B,C,W/C) (FIM): 6 Gait (FIM): 6 Gait Distance Comment: 300' Gait Assistive Device: FWW PT Plan Treatment/Plan Treatment Plan: Continue Plan of Care Treatment Plan: Bed Mobility, Education, Functional Activity Zoraida, Functional Strength, Gait, Safety, Therapeutic Exercise, Transfers Treatment Duration: May 30, 2019 Frequency: 6 times per week Estimated Hrs Per Day: .25 hour per day Patient and/or Family Agrees t: Yes Time/GCodes Time In: 945 Time Out: 957 Total Billed Treatment Time: 12 Total Billed Treatment 1 visit FA 12 min LAUREANO THOMPSON PT May 24, 2019 11:03
--- NOTE | 2019-05-24 11:09 | Discharge Summary ---
Diagnosis/Chief Complaint Date of Admission May 20, 2019 at 13:00 Date of Discharge 05/24/2019 Admission Diagnosis Admission Diagnosis See problem list Discharge Diagnosis See below Problems/Diagnosis: (1) Neutropenic fever Assessment & Plan: - Will cover with broad spectrum antibiotics, patient does not meet sepsis criteria but is high risk of developing sepsis, Blood cultures/urine cultures pending, Will get culture from port today 05/22 NGTD from blood, urine or port, will continue broad spectrum antibiotics to cover for PNA, will narrow tomorrow when cultures are final, Onc consulted and waiting for ANC of 10, then plan for discharge to complete antibiotics 05/23: Cultures remain neg, waiting for ANC >10, plan for d/c tomorrow, case discussed with Dr Flor 05/24: Sent home with 5 days remaining of PO antibiotics to complete Status: Acute (2) Cough Assessment & Plan: - CXR does not show occult PNA, Will cover for PNA vs bronchitis Status: Acute (3) Pancytopenia due to chemotherapy Assessment & Plan: - Will get oncology consult as patient is on oral chemotherapy Status: Chronic (4) BPH (benign prostatic hyperplasia) Assessment & Plan: - Continue home meds Qualifiers: Qualified Codes: N40.0 - Benign prostatic hyperplasia without lower urinary tract symptoms Status: Chronic (5) DVT prophylaxis Assessment & Plan: - Lovenox Status: Acute Chief Complaint/HPI Chief Complaint/HPI 88 yo M that presented to ER after daughters encouraged patient to come. 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 Patient states that for the last 2-3 days he has been more weak and fatigued then normal and his daughters had taken his temperature and he had been running a low grade temp but he is unable to remember what the numbers were. States that he was coughing but that has improved since arriving at the hospital. Denies any increase in urination or burning with urination. Denies any chills. No new wounds or sores per patient. Has not been around anyone with acute illness. States that he is unsure when his last appt with his oncologist was. Discharge Summary-Simple/Stand Consultations Dr Flor: Hematology/Oncology Discharge Physical Examination Allergies: Coded Allergies: No Known Drug Allergies (Unverified , 05/20/19) Vitals & I&Os Vital Sign - Last 12Hours Date Time Temp Pulse Resp B/P (MAP) Pulse Ox O2 Delivery O2 Flow Rate FiO2 05/24/19 08:00 Room Air 05/24/19 07:56 37.3 50 18 158/77 93 Intake and Output 05/24/19 00:00 Intake Total 1200 ml Output Total 1075 ml Balance 125 ml General Appearance: Alert, Oriented X3, Cooperative, No Acute Distress HEENT: Mucous Memb Moist/[place] Respiratory: Clear to Auscultation, Normal Air Movement Cardiovascular: Regular Rate, No Murmurs Abdominal: Normal Bowel Sounds, Soft, No Tenderness, No Masses Extremities: No Edema, No Tenderness/Swelling Neuro: Normal Speech, Strength at 5/5 X4 Ext, Sensation Intact, Cranial Nerves 3-12 NL Psych/Mental Status: Mental Status NL, Mood NL Hospital Course Was the Problem List Reviewed?: Yes See final discharge diagnosis. Pending Labs Needs repeat CBC to check WBCs and ANC Discussion & Recommendations 88 yo M with leukemia on chronic chemo therapy. Presented to the ER with cough and neutropenia. CXR revealed new findings of PNA vs atelectasis. Given symptoms patient was started on Cefepime due to neutropenia. Dr Flor with Oncology was consulted given patient being on current chemotherapy and neutropenia. He was given 3 doses of Neupogen during admission and WBC and ANC trended up. Patient was sent home and was instructed to continue to hold chemotherapy until seen by primary oncologist. Discharge Condition at discharge stable Instructions to patient/family Please see electronic discharge instructions given to patient. Discharge Medications Reviewed and agree with Discharge Medication list on patient's Discharge Instruction sheet Clinical Quality Measures DVT/VTE Risk/Contraindication: Risk Factor Score Per Nursin RFS Level Per Nursing on Admit: 4+=Very High Copy Copies To 1: JOVANNY GRANADOS MD, HOLLY R MD May 24, 2019 11:09
[2019-05-24] MEDS ORDERED: CEFD300C3 PO (11:14)
--- NOTE | 2019-05-24 11:19 | Discharge Instructions ---
Discharge [facility] Reconcile Patient Problems Problems Reviewed?: Yes Discharge Medications New, Converted or Re-Newed RX: Transmitted to Pharmacy New Medications: Cefdinir (Cefdinir) 300 Mg Capsule 300 MG PO BID for 5 Days, #10 CAP Continued Medications: Acetaminophen (Tylenol) 325 Mg Tablet 325 MG PO Q8H PRN for PAIN-MILD, TAB Aspirin (Aspirin) 81 Mg Tab.chew 81 MG PO DAILY, TAB Calcium Polycarbophil (Fibercon) 625 Mg Tablet 1250 MG PO DAILY, TAB TAKES 2 TABS DAILY Diphenhydramine HCl (Benadryl Allergy) 25 Mg Tablet 25 MG PO HS PRN for SLEEP, TAB Hydrocodone/Acetaminophen (Hydrocodone-Acetamin 5-325 mg) 1 Each Tablet 1 TAB PO DAILY PRN for PAIN-MODERATE Lenalidomide (Revlimid) 5 Mg Capsule 5 MG PO SEE DIRECTIONS, CAP 5 MG QD IN EVENING X 4 MORE DAYS THEN OFF 7 DAYS THEN ON 21 DAYS Loratadine (Claritin) 10 Mg Tablet 10 MG PO DAILY, TAB Methotrexate Sodium (Methotrexate) 2.5 Mg Tablet 7.5 MG PO EVERY TUESDAY, TAB TAKES 3 (2.5MG) TABS TO EQUAL 7.5 MG ON TUESDAY Multivitamin with Minerals (One Daily Complete) 1 Each Tablet 1 EACH PO DAILY, TAB Tamsulosin HCl (Flomax) 0.4 Mg Cap 0.4 MG PO HS, CAP Discontinued Medications: Tramadol HCl (Tramadol HCl) 50 Mg Tablet 50 MG PO DAILY PRN for PAIN-MODERATE Patient Instructions Goal/Follow Up Appt: Fgregory with Dr Almanzar on @ 315 PM Activity & Diet Discharge Diet: No Restrictions Activity as Tolerated: Yes Copy Copies To 1: JOVANNY ALMANZAR MD, HOLLY R MD May 24, 2019 11:19
[2019-05-24 12:20] VITALS: BP 158/77
== END 2019-05-24 12:21 | disposition home or self-care (01) | DRG 808 ==
LOC: EDUNIT# 10:28 → ER FS 10:30 → 4TH 13:00
PROVIDERS: ADMIT Family Medicine; ATTEND Family Medicine
DX: D70.9 Neutropenia, unspecified (principal); R50.81 Fever presenting with conditions classified elsewhere; D61.810 Antineoplastic chemotherapy induced pancytopenia; J18.9 Pneumonia, unspecified organism; J40 Bronchitis, not specified as acute or chronic; C83.35 Diffuse large B-cell lymphoma, lymph nodes of inguinal region and lower limb; C91.Z0 Other lymphoid leukemia not having achieved remission; J98.11 Atelectasis; I25.10 Atherosclerotic heart disease of native coronary artery without angina pectoris; N40.0 Benign prostatic hyperplasia without lower urinary tract symptoms; M19.91 Primary osteoarthritis, unspecified site; Z95.5 Presence of coronary angioplasty implant and graft; Z79.899 Other long term (current) drug therapy
CPT/HCPCS: 36415; 71046; 80048; 80053; 81000; 83605; 83880; 85007; 85025; 85027; 87040; 87804; 96361; 96374

== ENCOUNTER → 2019-05-29 | Outpatient (CLI) | payer MEDICARE ==
[~2019-05-29] MED LIST changes: +ACET325T38 PO; +ASPI-999 PO; +CALC625T PO; +CEFD300C3 PO; +DIPH25TA65 PO; +HYDR-3812 PO; +LENA5CAP PO; +LORA10TA76 PO; +METH2.5T PO; +MULT-436 PO; +TAMS0.4C98 PO; +TRAM50TA2 PO
--- NOTE | 2019-05-29 13:55 | Diagnostic Imaging Report ---
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 Study is performed for restaging. Serum blood glucose level at the time of injection was 114 mg/dL. The patient was administered 13.9 mCi F-18 FDG in the right antecubital location and whole-body PET imaging was performed. In addition, noncontrast CT was performed for attenuation correction and anatomic correlation. Correlation is made with prior whole body PET scan from 04/03/2019. There is symmetric activity throughout the brain. There is activity along the anterior aspect of the hard palate, increased since the prior study with SUV max of approximately 5.2. No other hypermetabolism in the soft tissues of the neck is seen. There is very mild uptake identified in the right hilum with SUV max of approximately 3.2, indeterminate. This is similar to prior exam. Left hilum and mediastinum are unremarkable. No pulmonary parenchymal hypermetabolism is seen. There are small bilateral effusions noted. Abdomen demonstrates some mild uptake identified in the region of vera hepatis with SUV max of approximately 3.5. This was not present on prior PET. Remainder of the abdomen and pelvis demonstrates physiologic activity within the GI and tracts. Imaging through the lower extremities demonstrates numerous hypermetabolic nodules. These appear to be increased since the prior exam. Hypermetabolic lymph node in the medial right upper thigh demonstrates SUV max of approximately 5.5. A right suprapatellar soft tissue mass demonstrates SUV max of approximately 12. There are some areas of hypermetabolism along the anterior as well as medial and lateral aspect of the right knee. Numerous soft tissue nodules in the subcutaneous tissues along the right lower extremity laterally as well as in the posterior musculature of the right calf has increased since the prior exam. There is hypermetabolism in the plantar aspect of the left foot, medial side in the region of the first MTP joint. IMPRESSION: Worsening appearance of the whole body PET study when compared with prior study from two months earlier. There is increasing activity in the region of the hard palate. There is some mild uptake identified in the abdomen in the region of the vera hepatis. The most significant change has occurred in the lower extremities were there are numerous subcutaneous and deep hypermetabolic nodules, particularly in the right lower extremity. There is also a hypermetabolic mass in the left foot near the first MTP joint. Dictated by: Dictated on workstation # [id number]
== END ==
LOC: RAD 09:28
PROVIDERS: ATTEND Internal Medicine Hematology & Oncology
DX: C85.90 Non-Hodgkin lymphoma, unspecified, unspecified site (principal); L98.9 Disorder of the skin and subcutaneous tissue, unspecified

== ENCOUNTER 2019-06-04 08:37 | Outpatient (RCR) | payer MEDICARE ==
[2019-05-28 09:32] LABS: HEMATOCRIT 34 % (40-54); HEMOGLOBIN 11.1 G/DL (13.3-17.7); LYMPHOCYTES % (AUTO) 22 % (12-44); MEAN CORPUSCULAR HEMOGLOBIN 36 PG (25-34); MEAN CORPUSCULAR HGB CONC 33 G/DL (32-36); MEAN CORPUSCULAR VOLUME 107 FL (80-99); MEAN PLATELET VOLUME 10.7 FL (7.4-10.4); MONOCYTES % (AUTO) 15 % (0-12); PLATELET COUNT 125 10^3/uL (130-400); RED CELL DISTRIBUTION WIDTH 16.2 % (10.0-14.5); WHITE BLOOD COUNT 3.9 10^3/uL (4.3-11.0)
[2019-05-28 09:33] LABS: BASOPHILS % (AUTO) 2 % (0-10)
[2019-05-28 09:40] LABS: BASOPHILS # (AUTO) 0.1 10^3/uL (0.0-0.1); EOSINOPHILS # (AUTO) 0.5 10^3/uL (0.0-0.3); LYMPHOCYTES # (AUTO) 0.9 X 10^3 (1.0-4.0); MONOCYTES # (AUTO) 0.6 X 10^3 (0.0-1.0)
[2019-05-28 10:09] LABS: NEUTROPHILS # (AUTO) 1.9 X 10^3 (1.8-7.8)
[2019-05-28 10:10] LABS: EOSINOPHILS % (AUTO) 12 % (0-10)
[2019-05-28 10:11] LABS: NEUTROPHILS % (AUTO) 49 % (42-75)
[2019-06-04 08:54] LABS: BASOPHILS # (AUTO) 0.1 10^3/uL (0.0-0.1); BASOPHILS % (AUTO) 4 % (0-10); EOSINOPHILS # (AUTO) 0.3 10^3/uL (0.0-0.3); EOSINOPHILS % (AUTO) 9 % (0-10); HEMATOCRIT 34 % (40-54); HEMOGLOBIN 10.9 G/DL (13.3-17.7); LYMPHOCYTES # (AUTO) 0.9 X 10^3 (1.0-4.0); LYMPHOCYTES % (AUTO) 27 % (12-44); MEAN CORPUSCULAR HEMOGLOBIN 35 PG (25-34); MEAN CORPUSCULAR HGB CONC 33 G/DL (32-36); MEAN CORPUSCULAR VOLUME 109 FL (80-99); MEAN PLATELET VOLUME 9.5 FL (7.4-10.4); MONOCYTES # (AUTO) 0.2 X 10^3 (0.0-1.0); MONOCYTES % (AUTO) 8 % (0-12); NEUTROPHILS # (AUTO) 1.6 X 10^3 (1.8-7.8); NEUTROPHILS % (AUTO) 51 % (42-75); PLATELET COUNT 173 10^3/uL (130-400); RED CELL DISTRIBUTION WIDTH 16.2 % (10.0-14.5); WHITE BLOOD COUNT 3.2 10^3/uL (4.3-11.0)
[2019-08-22] MEDS ORDERED: FEXO-46 PO (09:58)
[2019-08-22] MEDS ORDERED: TRAM50TA2 PO (09:58)
[2019-08-22] MEDS ORDERED: ASPI-983 PO (09:58)
[2019-08-22] MEDS ORDERED: IBRU140C PO (09:58)
[2019-08-22] MEDS ORDERED: CALC625T PO (09:58)
[2019-08-22] MEDS ORDERED: POTA20TA15 PO (10:02)
[2019-08-22] MEDS ORDERED: FURO40TA4 PO (10:02)
[2019-08-22] MEDS ORDERED: [UNRECOGNIZED DRUG - OTHER] PO (10:09)
[2019-08-24] MEDS ORDERED: FURO40TA4 PO (12:53)
[2019-08-24] MEDS ORDERED: CARV3.122 PO (12:53)
[2019-08-24] MEDS ORDERED: LOSA25TA41 PO (12:53)
== END 2019-08-26 | disposition home or self-care (01) ==
LOC: LAB FS 08:37
PROVIDERS: ATTEND Internal Medicine Hematology & Oncology
DX: D64.81 Anemia due to antineoplastic chemotherapy (principal)
CPT/HCPCS: 36415; 85025

== ENCOUNTER 2019-08-20 08:43 | Outpatient (RCR) | payer MEDICARE ==
[2019-06-11 09:20] LABS: BASOPHILS # (AUTO) 0.1 10^3/uL (0.0-0.1); BASOPHILS % (AUTO) 2 % (0-10); EOSINOPHILS # (AUTO) 0.3 10^3/uL (0.0-0.3); EOSINOPHILS % (AUTO) 11 % (0-10); HEMATOCRIT 37 % (40-54); HEMOGLOBIN 11.9 G/DL (13.3-17.7); LYMPHOCYTES # (AUTO) 0.7 X 10^3 (1.0-4.0); LYMPHOCYTES % (AUTO) 27 % (12-44); MEAN CORPUSCULAR HEMOGLOBIN 35 PG (25-34); MEAN CORPUSCULAR HGB CONC 32 G/DL (32-36); MEAN CORPUSCULAR VOLUME 111 FL (80-99); MEAN PLATELET VOLUME 9.9 FL (7.4-10.4); MONOCYTES # (AUTO) 0.5 X 10^3 (0.0-1.0); MONOCYTES % (AUTO) 19 % (0-12); NEUTROPHILS # (AUTO) 1.1 X 10^3 (1.8-7.8); NEUTROPHILS % (AUTO) 41 % (42-75); PLATELET COUNT 138 10^3/uL (130-400); RED CELL DISTRIBUTION WIDTH 17.2 % (10.0-14.5); WHITE BLOOD COUNT 2.7 10^3/uL (4.3-11.0)
[2019-06-18 08:55] LABS: BASOPHILS % (AUTO) 1 % (0-10); EOSINOPHILS % (AUTO) 14 % (0-10); HEMATOCRIT 36 % (40-54); HEMOGLOBIN 11.9 G/DL (13.3-17.7); MEAN CORPUSCULAR HEMOGLOBIN 36 PG (25-34); MEAN CORPUSCULAR HGB CONC 33 G/DL (32-36); MEAN CORPUSCULAR VOLUME 110 FL (80-99); MEAN PLATELET VOLUME 11.1 FL (7.4-10.4); MONOCYTES % (AUTO) 19 % (0-12); NEUTROPHILS % (AUTO) 38 % (42-75); PLATELET COUNT 66 10^3/uL (130-400); WHITE BLOOD COUNT 2.9 10^3/uL (4.3-11.0)
[2019-06-18 08:56] LABS: EOSINOPHILS # (AUTO) 0.4 10^3/uL (0.0-0.3); LYMPHOCYTES # (AUTO) 0.8 X 10^3 (1.0-4.0); LYMPHOCYTES % (AUTO) 28 % (12-44); MONOCYTES # (AUTO) 0.5 X 10^3 (0.0-1.0); NEUTROPHILS # (AUTO) 1.1 X 10^3 (1.8-7.8)
[2019-06-25 08:57] LABS: HEMATOCRIT 36 % (40-54); HEMOGLOBIN 11.8 G/DL (13.3-17.7); MEAN CORPUSCULAR HEMOGLOBIN 36 PG (25-34); MEAN CORPUSCULAR VOLUME 110 FL (80-99); WHITE BLOOD COUNT 2.8 10^3/uL (4.3-11.0)
[2019-06-25 08:58] LABS: BASOPHILS % (AUTO) 1 % (0-10); EOSINOPHILS # (AUTO) 0.3 10^3/uL (0.0-0.3); EOSINOPHILS % (AUTO) 9 % (0-10); LYMPHOCYTES # (AUTO) 0.8 X 10^3 (1.0-4.0); LYMPHOCYTES % (AUTO) 27 % (12-44); MEAN CORPUSCULAR HGB CONC 32 G/DL (32-36); MEAN PLATELET VOLUME 10.4 FL (7.4-10.4); MONOCYTES # (AUTO) 0.5 X 10^3 (0.0-1.0); MONOCYTES % (AUTO) 18 % (0-12); NEUTROPHILS # (AUTO) 1.3 X 10^3 (1.8-7.8); NEUTROPHILS % (AUTO) 44 % (42-75); PLATELET COUNT 65 10^3/uL (130-400); RED CELL DISTRIBUTION WIDTH 16.1 % (10.0-14.5)
[2019-07-02 09:15] LABS: BASOPHILS % (AUTO) 1 % (0-10); EOSINOPHILS % (AUTO) 4 % (0-10); HEMATOCRIT 37 % (40-54); HEMOGLOBIN 11.9 G/DL (13.3-17.7); LYMPHOCYTES % (AUTO) 25 % (12-44); MEAN CORPUSCULAR HEMOGLOBIN 36 PG (25-34); MEAN CORPUSCULAR HGB CONC 33 G/DL (32-36); MEAN CORPUSCULAR VOLUME 109 FL (80-99); MEAN PLATELET VOLUME 10.1 FL (7.4-10.4); MONOCYTES % (AUTO) 21 % (0-12); NEUTROPHILS % (AUTO) 49 % (42-75); PLATELET COUNT 88 10^3/uL (130-400); RED CELL DISTRIBUTION WIDTH 15.7 % (10.0-14.5); WHITE BLOOD COUNT 3.4 10^3/uL (4.3-11.0)
[2019-07-02 09:16] LABS: EOSINOPHILS # (AUTO) 0.1 10^3/uL (0.0-0.3); LYMPHOCYTES # (AUTO) 0.8 X 10^3 (1.0-4.0); MONOCYTES # (AUTO) 0.7 X 10^3 (0.0-1.0); NEUTROPHILS # (AUTO) 1.7 X 10^3 (1.8-7.8)
[2019-07-02 09:39] LABS: ALANINE AMINOTRANSFERASE 10 U/L (0-55); ALBUMIN 3.6 GM/DL (3.2-4.5); ALKALINE PHOSPHATASE 59 U/L (40-136); BILIRUBIN,TOTAL 0.4 MG/DL (0.1-1.0); BUN/CREATININE RATIO 14; CALCIUM 8.9 MG/DL (8.5-10.1); CARBON DIOXIDE 27 MMOL/L (21-32); CHLORIDE 104 MMOL/L (98-107); CREATININE SERUM 1.09 MG/DL (0.60-1.30); GFR ESTIMATED > 60; GLUCOSE 113 MG/DL (70-105); POTASSIUM 3.8 MMOL/L (3.6-5.0); SODIUM 142 MMOL/L (135-145); TOTAL PROTEIN 5.1 GM/DL (6.4-8.2)
[2019-07-09 08:44] LABS: HEMATOCRIT 34 % (40-54); HEMOGLOBIN 11.2 G/DL (13.3-17.7); MEAN CORPUSCULAR HEMOGLOBIN 36 PG (25-34); MEAN CORPUSCULAR HGB CONC 33 G/DL (32-36); MEAN CORPUSCULAR VOLUME 109 FL (80-99); MEAN PLATELET VOLUME 10.3 FL (7.4-10.4); PLATELET COUNT 97 10^3/uL (130-400); RED CELL DISTRIBUTION WIDTH 15.4 % (10.0-14.5); WHITE BLOOD COUNT 3.2 10^3/uL (4.3-11.0)
[2019-07-09 08:45] LABS: BASOPHILS # (AUTO) 0.1 10^3/uL (0.0-0.1); BASOPHILS % (AUTO) 2 % (0-10); EOSINOPHILS # (AUTO) 0.1 10^3/uL (0.0-0.3); EOSINOPHILS % (AUTO) 4 % (0-10); LYMPHOCYTES # (AUTO) 0.8 X 10^3 (1.0-4.0); LYMPHOCYTES % (AUTO) 25 % (12-44); MONOCYTES # (AUTO) 0.7 X 10^3 (0.0-1.0); MONOCYTES % (AUTO) 22 % (0-12); NEUTROPHILS # (AUTO) 1.4 X 10^3 (1.8-7.8); NEUTROPHILS % (AUTO) 44 % (42-75)
[2019-07-16 09:02] LABS: WHITE BLOOD COUNT 3.4 10^3/uL (4.3-11.0)
[2019-07-16 09:03] LABS: BASOPHILS % (AUTO) 1 % (0-10); EOSINOPHILS # (AUTO) 0.1 10^3/uL (0.0-0.3); EOSINOPHILS % (AUTO) 3 % (0-10); HEMATOCRIT 33 % (40-54); HEMOGLOBIN 10.8 G/DL (13.3-17.7); LYMPHOCYTES # (AUTO) 0.7 X 10^3 (1.0-4.0); LYMPHOCYTES % (AUTO) 20 % (12-44); MEAN CORPUSCULAR HEMOGLOBIN 36 PG (25-34); MEAN CORPUSCULAR HGB CONC 33 G/DL (32-36); MEAN CORPUSCULAR VOLUME 108 FL (80-99); MEAN PLATELET VOLUME 10.4 FL (7.4-10.4); MONOCYTES # (AUTO) 0.7 X 10^3 (0.0-1.0); MONOCYTES % (AUTO) 21 % (0-12); NEUTROPHILS # (AUTO) 1.9 X 10^3 (1.8-7.8); NEUTROPHILS % (AUTO) 55 % (42-75); PLATELET COUNT 96 10^3/uL (130-400); RED CELL DISTRIBUTION WIDTH 15.5 % (10.0-14.5)
[2019-07-23 10:51] LABS: HEMATOCRIT 36 % (40-54); HEMOGLOBIN 11.6 G/DL (13.3-17.7); MEAN CORPUSCULAR HEMOGLOBIN 35 PG (25-34); MEAN CORPUSCULAR VOLUME 110 FL (80-99); WHITE BLOOD COUNT 5.6 10^3/uL (4.3-11.0)
[2019-07-23 10:52] LABS: BASOPHILS % (AUTO) 1 % (0-10); EOSINOPHILS % (AUTO) 0 % (0-10); LYMPHOCYTES # (AUTO) 0.6 X 10^3 (1.0-4.0); LYMPHOCYTES % (AUTO) 11 % (12-44); MEAN CORPUSCULAR HGB CONC 32 G/DL (32-36); MEAN PLATELET VOLUME 10.7 FL (7.4-10.4); MONOCYTES # (AUTO) 1.1 X 10^3 (0.0-1.0); MONOCYTES % (AUTO) 19 % (0-12); NEUTROPHILS # (AUTO) 3.8 X 10^3 (1.8-7.8); NEUTROPHILS % (AUTO) 69 % (42-75); PLATELET COUNT 106 10^3/uL (130-400); RED CELL DISTRIBUTION WIDTH 16.3 % (10.0-14.5)
[2019-07-30 08:58] LABS: HEMATOCRIT 35 % (40-54); HEMOGLOBIN 11.4 G/DL (13.3-17.7); MEAN CORPUSCULAR HEMOGLOBIN 36 PG (25-34); WHITE BLOOD COUNT 4.3 10^3/uL (4.3-11.0)
[2019-07-30 08:59] LABS: BASOPHILS % (AUTO) 1 % (0-10); EOSINOPHILS # (AUTO) 0.2 10^3/uL (0.0-0.3); EOSINOPHILS % (AUTO) 4 % (0-10); LYMPHOCYTES # (AUTO) 0.8 X 10^3 (1.0-4.0); LYMPHOCYTES % (AUTO) 17 % (12-44); MEAN CORPUSCULAR HGB CONC 33 G/DL (32-36); MEAN CORPUSCULAR VOLUME 110 FL (80-99); MEAN PLATELET VOLUME 10.2 FL (7.4-10.4); MONOCYTES # (AUTO) 0.9 X 10^3 (0.0-1.0); MONOCYTES % (AUTO) 21 % (0-12); NEUTROPHILS # (AUTO) 2.3 X 10^3 (1.8-7.8); NEUTROPHILS % (AUTO) 53 % (42-75); PLATELET COUNT 104 10^3/uL (130-400); RED CELL DISTRIBUTION WIDTH 15.6 % (10.0-14.5)
[2019-07-30 09:26] LABS: BILIRUBIN,TOTAL 0.4 MG/DL (0.1-1.0); CALCIUM 8.8 MG/DL (8.5-10.1); CREATININE SERUM 1.25 MG/DL (0.60-1.30); POTASSIUM 4.2 MMOL/L (3.6-5.0); TOTAL PROTEIN 5.1 GM/DL (6.4-8.2)
[2019-07-30 09:27] LABS: ALBUMIN 3.5 GM/DL (3.2-4.5)
[2019-08-06 08:50] LABS: BASOPHILS % (AUTO) 2 % (0-10); EOSINOPHILS % (AUTO) 4 % (0-10); HEMATOCRIT 35 % (40-54); HEMOGLOBIN 11.4 G/DL (13.3-17.7); LYMPHOCYTES % (AUTO) 18 % (12-44); MEAN CORPUSCULAR HEMOGLOBIN 35 PG (25-34); MEAN CORPUSCULAR HGB CONC 32 G/DL (32-36); MEAN CORPUSCULAR VOLUME 109 FL (80-99); MEAN PLATELET VOLUME 10.5 FL (7.4-10.4); MONOCYTES % (AUTO) 22 % (0-12); NEUTROPHILS % (AUTO) 53 % (42-75); PLATELET COUNT 102 10^3/uL (130-400); RED CELL DISTRIBUTION WIDTH 15.5 % (10.0-14.5); WHITE BLOOD COUNT 4.1 10^3/uL (4.3-11.0)
[2019-08-06 08:51] LABS: BASOPHILS # (AUTO) 0.1 10^3/uL (0.0-0.1); EOSINOPHILS # (AUTO) 0.2 10^3/uL (0.0-0.3); LYMPHOCYTES # (AUTO) 0.7 X 10^3 (1.0-4.0); MONOCYTES # (AUTO) 0.9 X 10^3 (0.0-1.0); NEUTROPHILS # (AUTO) 2.2 X 10^3 (1.8-7.8)
[2019-08-13 09:53] LABS: BASOPHILS % (AUTO) 1 % (0-10); EOSINOPHILS % (AUTO) 5 % (0-10); HEMATOCRIT 34 % (40-54); HEMOGLOBIN 11.1 G/DL (13.3-17.7); LYMPHOCYTES % (AUTO) 14 % (12-44); MEAN CORPUSCULAR HEMOGLOBIN 35 PG (25-34); MEAN CORPUSCULAR HGB CONC 32 G/DL (32-36); MEAN CORPUSCULAR VOLUME 108 FL (80-99); MEAN PLATELET VOLUME 11.1 FL (7.4-10.4); MONOCYTES % (AUTO) 21 % (0-12); PLATELET COUNT 103 10^3/uL (130-400); RED CELL DISTRIBUTION WIDTH 15.5 % (10.0-14.5); WHITE BLOOD COUNT 3.9 10^3/uL (4.3-11.0)
[2019-08-13 09:54] LABS: BASOPHILS # (AUTO) 0.1 10^3/uL (0.0-0.1); EOSINOPHILS # (AUTO) 0.2 10^3/uL (0.0-0.3); LYMPHOCYTES # (AUTO) 0.6 X 10^3 (1.0-4.0); MONOCYTES # (AUTO) 0.8 X 10^3 (0.0-1.0); NEUTROPHILS # (AUTO) 2.3 X 10^3 (1.8-7.8); NEUTROPHILS % (AUTO) 59 % (42-75)
[2019-08-20 09:14] LABS: BASOPHILS # (AUTO) 0.1 10^3/uL (0.0-0.1); BASOPHILS % (AUTO) 1 % (0-10); EOSINOPHILS # (AUTO) 0.3 10^3/uL (0.0-0.3); EOSINOPHILS % (AUTO) 9 % (0-10); HEMATOCRIT 33 % (40-54); HEMOGLOBIN 10.8 G/DL (13.3-17.7); LYMPHOCYTES # (AUTO) 0.6 X 10^3 (1.0-4.0); LYMPHOCYTES % (AUTO) 17 % (12-44); MEAN CORPUSCULAR HEMOGLOBIN 35 PG (25-34); MEAN CORPUSCULAR HGB CONC 33 G/DL (32-36); MEAN CORPUSCULAR VOLUME 107 FL (80-99); MEAN PLATELET VOLUME 10.1 FL (7.4-10.4); MONOCYTES # (AUTO) 0.9 X 10^3 (0.0-1.0); MONOCYTES % (AUTO) 25 % (0-12); NEUTROPHILS # (AUTO) 1.7 X 10^3 (1.8-7.8); NEUTROPHILS % (AUTO) 47 % (42-75); PLATELET COUNT 101 10^3/uL (130-400); RED CELL DISTRIBUTION WIDTH 15.6 % (10.0-14.5); WHITE BLOOD COUNT 3.7 10^3/uL (4.3-11.0)
[2019-08-22] MEDS ORDERED: CALC625T PO (09:58)
[2019-08-22] MEDS ORDERED: FEXO-46 PO (09:58)
[2019-08-22] MEDS ORDERED: ASPI-983 PO (09:58)
[2019-08-22] MEDS ORDERED: IBRU140C PO (09:58)
[2019-08-22] MEDS ORDERED: TRAM50TA2 PO (09:58)
[2019-08-22] MEDS ORDERED: POTA20TA15 PO (10:02)
[2019-08-22] MEDS ORDERED: FURO40TA4 PO (10:02)
[2019-08-22] MEDS ORDERED: [UNRECOGNIZED DRUG - OTHER] PO (10:09)
[2019-08-24] MEDS ORDERED: LOSA25TA41 PO (12:53)
[2019-08-24] MEDS ORDERED: CARV3.122 PO (12:53)
[2019-08-24] MEDS ORDERED: FURO40TA4 PO (12:53)
== END 2019-09-09 | disposition home or self-care (01) ==
LOC: LAB FS 08:43
PROVIDERS: ATTEND Internal Medicine Hematology & Oncology
DX: D64.81 Anemia due to antineoplastic chemotherapy (principal)
CPT/HCPCS: 36415; 80053; 83615; 85025

== ENCOUNTER 2019-09-08 13:55 | Emergency (ER) | payer MEDICARE ==
[~2019-09-08] VITALS: Ht 177.8 cm; Wt 82.7 kg
[~2019-09-08 13:55] MED LIST changes: +ASPI-983 PO; +CARV3.122 PO; +FEXO-46 PO; +FURO40TA4 PO; +IBRU140C PO; +LOSA25TA41 PO; +POTA20TA15 PO; +[UNRECOGNIZED DRUG - OTHER] PO
[2019-09-08] MEDS ORDERED: NS IV ONE (14:00)
--- NOTE | 2019-09-08 14:20 | ED Respiratory ---
General Stated Complaint: COUGH,WEAKNESS Source: patient, family Exam Limitations: no limitations History of Present Illness Date Seen by Provider: Sep 08, 2019 Time Seen by Provider: 14:15 Initial Comments This 88-year-old white male presents with cough and weakness. Patient has had recent hospitalization in [place] for similar presentation. The patient has had a history of progressive weakness and cough for the last several months. Patient has 2 cancers (leukemia and lymphoma) currently under treatment. Patient said no gallstones and congestive heart failure. Patient denies change in his significant peripheral edema. The patient denies lateralizing or localizing weakness. Patient had a fever this morning of 101. His cough has been yellow-colored sputum. Allergies and Home Medications Allergies Coded Allergies: No Known Drug Allergies (Unverified , 05/20/19) Home Medications Acetaminophen 325 Mg Tablet, 325-650 MG PO Q8H PRN for PAIN-MILD, (Reported) Aspirin 81 Mg Tablet.dr, 81 MG PO 1800, (Reported) Calcium Polycarbophil 625 Mg Tablet, 2 TAB PO 1800, (Reported) Carvedilol 3.125 Mg Tablet, 3.125 MG PO BID Prescribed by: ESPERANZA GALLEGOS on 08/24/19 1253 Diphenhydramine HCl 25 Mg Tablet, 25 MG PO HS PRN for SLEEP, (Reported) Fexofenadine HCl 180 Mg Tablet, 180 MG PO 1800, (Reported) Furosemide 40 Mg Tablet, 40 MG PO DAILY Prescribed by: ESPERANZA GALLEGOS on 08/24/19 125 Hydrocodone/Acetaminophen 1 Each Tablet, 1 TAB PO Q4H PRN for PAIN-MODERATE, (Reported) Ibrutinib 140 Mg Capsule, 280 MG PO 1800, (Reported) TAKES 2 (140MG) CAPSULES Losartan Potassium 25 Mg Tablet, 25 MG PO DAILY Prescribed by: ESPERANZA GALLEGOS on 08/24/19 125 Methotrexate Sodium 2.5 Mg Tablet, 7.5 MG PO Mo, (Reported) TAKES 3 (2.5MG) TABLETS Multivitamin with Minerals 1 Each Tablet, 1 TAB PO 1800, (Reported) Potassium Chloride 20 Meq Tab.er.prt, 20 MEQ PO DAILY PRN for WHEN TAKING FUROSEMIDE, (Reported) Tamsulosin HCl 0.4 Mg Cap, 0.4 MG PO 1800, (Reported) [First-Mouthw] , 5 ML PO UD PRN for MOUTH PAIN, (Reported) SWISH AND SWALLOW BENADRYL; LIDOCAINE; MAALOX Patient Home Medication List Home Medication List Reviewed: Yes Review of Systems Review of Systems Constitutional: No chills; fever, weakness EENTM: no symptoms reported Respiratory: see HPI, cough, short of breath Cardiovascular: No chest pain; edema; No palpitations Gastrointestinal: No abdominal pain, No diarrhea, No nausea, No vomiting Genitourinary: no symptoms reported Musculoskeletal: no symptoms reported Skin: no symptoms reported Psychiatric/Neurological: No Symptoms Reported Hematologic/Lymphatic: No Symptoms Reported Immunological/Allergic: no symptoms reported Past Vujmskn-Cbvufl-Gpomob Hx Past Med/Social Hx: Reviewed Nursing Past Med/Soc Hx Patient Social History 2nd Hand Smoke Exposure: No Recent Hopitalizations: No Immunizations Up To Date Date of Pneumonia Vaccine: Jun 12, 2017 Date of Influenza Vaccine: Jun 12, 2019 Seasonal Allergies Seasonal Allergies: No Past Medical History Surgeries: Yes (heart stents, hernia x 2, joint replacement: toe and knee) Joint Replacement Respiratory: No COPD Currently Using CPAP: No Currently Using BIPAP: No Cardiac: Yes (STENTS, CHF) Chronic Edema/Swelling, Coronary Artery Disease Neurological: No Reproductive Disorders: No Sexually Transmitted Disease: No Genitourinary: Yes (INCONTINENT) Gastrointestinal: Yes Chronic Constipation Musculoskeletal: Yes Arthritis Endocrine: No HEENT: No Cancer: Yes (Lg granular lymphocytic leukemia, cutaneous diffuse lg B-cell lymphoma) Leukemia, Lymphoma Did You Recieve Any Treatments: Yes What Type of Treatment Did You: Other Psychosocial: No Integumentary: Yes (BRUISES) Recent Skin Changes Blood Disorders: Yes (NEUTROPENIA) Adverse Reaction/Blood Tranf: No Physical Exam Vital Signs - First Documented 09/08/19 09/08/19 13:55 14:36 Temp 36.8 Pulse 93 Resp 25 B/P (MAP) 119/70 (86) Pulse Ox 94 O2 Delivery Room Air O2 Flow Rate 2.00 Capillary Refill : Height: 5'11.00" Weight: 184lbs. 1.0oz. 83.604710yb; 25.74 BMI Method:Stated General Appearance: cachetic Eyes: Bilateral Eye Normal Inspection HEENT: normal ENT inspection Neck: full range of motion, supple Respiratory: chest non-tender, decreased breath sounds Cardiovascular: irregularly irregular Gastrointestinal: normal bowel sounds, non tender, soft Extremities: normal range of motion, non-tender, pedal edema Neurologic/Psychiatric: no motor/sensory deficits, alert, normal mood/affect, oriented x 3 Skin: normal color, warm/dry Focused Exam Lactate Level 09/08/19 14:00: Lactic Acid Level 1.29 Lactic Acid Level Laboratory Tests Test 09/08/19 14:00 Lactic Acid Level 1.29 MMOL/L (0.50-2.00) Progress/Results/Core Measures Suspected Sepsis SIRS Temperature: Pulse: Respiratory Rate: Laboratory Tests 09/08/19 14:00: White Blood Count 4.2L Blood Pressure / Mean: 09/08/19 14:00: Lactic Acid Level 1.29 Laboratory Tests 09/08/19 14:00: Creatinine 1.19, Platelet Count 99L, Total Bilirubin 0.9 09/08/19 14:33: INR Comment 1.2 Results/Orders Lab Results Laboratory Tests Test 09/08/19 14:00 09/08/19 14:33 Range/Units White Blood Count 4.2 L 4.3-11.0 10^3/uL Red Blood Count 3.23 L 4.35-5.85 10^6/uL Hemoglobin 11.3 L 13.3-17.7 G/DL Hematocrit 35 L 40-54 % Mean Corpuscular Volume 107 H 80-99 FL Mean Corpuscular Hemoglobin 35 H 25-34 PG Mean Corpuscular Hemoglobin Concent 33 32-36 G/DL Red Cell Distribution Width 15.8 H 10.0-14.5 % Platelet Count 99 L 130-400 10^3/uL Mean Platelet Volume 11.8 H 7.4-10.4 FL Neutrophils (%) (Auto) 50 42-75 % Lymphocytes (%) (Auto) 23 12-44 % Monocytes (%) (Auto) 26 H 0-12 % Eosinophils (%) (Auto) 0 0-10 % Basophils (%) (Auto) 1 0-10 % Neutrophils # (Auto) 2.1 1.8-7.8 X 10^3 Lymphocytes # (Auto) 0.9 L 1.0-4.0 X 10^3 Monocytes # (Auto) 1.1 H 0.0-1.0 X 10^3 Eosinophils # (Auto) 0.0 0.0-0.3 10^3/uL Basophils # (Auto) 0.0 0.0-0.1 10^3/uL Neutrophils % (Manual) 10 % Lymphocytes % (Manual) 25 % Monocytes % (Manual) 25 % Eosinophils % (Manual) 1 % Basophils % (Manual) 1 % Metamyelocytes % 4 % Myelocytes % 4 % Band Neutrophils 30 % Macrocytosis MARKED Sodium Level 138 135-145 MMOL/L Potassium Level 4.4 3.6-5.0 MMOL/L Chloride Level 100 98-107 MMOL/L Carbon Dioxide Level 26 21-32 MMOL/L Anion Gap 12 5-14 MMOL/L Blood Urea Nitrogen 28 H 7-18 MG/DL Creatinine 1.19 0.60-1.30 MG/DL Estimat Glomerular Filtration Rate 58 BUN/Creatinine Ratio 24 Glucose Level 112 H 70-105 MG/DL Lactic Acid Level 1.29 0.50-2.00 MMOL/L Calcium Level 9.2 8.5-10.1 MG/DL Corrected Calcium 9.4 8.5-10.1 MG/DL Total Bilirubin 0.9 0.1-1.0 MG/DL Aspartate Amino Transf (AST/SGOT) 17 5-34 U/L Alanine Aminotransferase (ALT/SGPT) 11 0-55 U/L Alkaline Phosphatase 58 40-136 U/L Troponin I < 0.30 <0.30 NG/ML Pro-B-Type Natriuretic Peptide 6548.0 H <75.0 PG/ML Total Protein 5.7 L 6.4-8.2 GM/DL Albumin 3.7 3.2-4.5 GM/DL Prothrombin Time 15.3 H 12.2-14.7 SEC INR Comment 1.2 0.8-1.4 Activated Partial Thromboplast Time 32 24-35 SEC D-Dimer 0.56 H 0.00-0.49 UG/ML My Orders Orders - DIAZ MAHONEY MD Cbc With Automated Diff (09/08/19 13:57) Comprehensive Metabolic Panel (09/08/19 13:57) Blood Culture (09/08/19 13:57) Urinalysis (09/08/19 13:57) Urine Culture (09/08/19 13:57) Protime With Inr (09/08/19 13:57) Partial Thromboplastin Time (09/08/19 13:57) Chest 1 View Ap/Pa Only (09/08/19 13:57) Ed Iv/Invasive Line Start (09/08/19 13:57) Ed Iv/Invasive Line Start (09/08/19 13:57) Ekg Tracing (09/08/19 13:57) Vital Signs Adult Sepsis Patie Q15M (09/08/19 13:57) O2 (09/08/19 13:57) Remove Rings In Anticipation O (09/08/19 13:57) Lactic Acid Analyzer (09/08/19 13:57) Ns Iv 1000 Ml (Sodium Chloride 0.9%) (09/08/19 14:00) Fibrin Degradation Products (09/08/19 14:01) Probnp Fs (09/08/19 14:01) Albuterol Pre-Mix Nebs (Rt) (Proventil (09/08/19 21:00) Svn Small Volume Nebulizer (09/08/19 14:21) Sputum Culture (09/08/19 14:21) Albuterol Pre-Mix Nebs (Rt) (Proventil (09/08/19 14:45) Troponin I Fs (09/08/19 15:02) Manual Differential (09/08/19 14:00) Cefepime Injection (Maxipime Injection) (09/08/19 15:30) Vancomycin Injection (Vancomycin Injecti (09/08/19 15:30) Vancomycin Injection (Vancomycin Injecti (09/08/19 15:35) Ns (Ivpb) (Sodium Chloride 0.9%) (09/08/19 15:35) Medications Given in ED Current Medications Medications Dose Ordered Sig/Micheal Route Start Time Stop Time Status Last Admin Dose Admin Sodium Chloride 2,504.67 ml @ 175 mls/ hr ONCE ONCE IV 09/08/19 14:00 09/09/19 04:18 09/08/19 14:45 175 MLS/HR Vital Signs/I&O 09/08/19 09/08/19 13:55 14:36 Temp 36.8 Pulse 93 Resp 25 B/P (MAP) 119/70 (86) Pulse Ox 94 92 O2 Delivery Room Air Nasal Cannula O2 Flow Rate 2.00 Capillary Refill : Progress Note : Time: 15:51 Progress Note The patient's laboratory and radiographic evaluation demonstrated significant bandemia suggestive of infection. The BMP was elevated and 6000 range consistent with CHF. 2 blood cultures were drawn. The patient's lactic acid was under 2. Patient's EKG demonstrated a left bundle with atrial fibrillation. Telegraph sedation was undertaken with Dr. Rivers who is kind enough to accept the patient in transfer to [facility]. Dr. Rivers and I discussed the patient's presentation and agreed not to give him a fluid bolus of 30 megs per Jayson. We did not initiate Lasix IV. We did cover the patient with Maxipime and vancomycin. We'll initiate transfer the patient to [facility] for further evaluation and care. Departure Impression Primary Impression: Pneumonia Qualified Codes: J18.9 - Pneumonia, unspecified organism Additional Impressions: CHF (congestive heart failure) Qualified Codes: I50.9 - Heart failure, unspecified Atrial fibrillation Qualified Codes: I48.91 - Unspecified atrial fibrillation Left bundle branch block Disposition: 02 XFER SHT-TRM HOSP Condition: Improved Transfer Transfer Reason: Exceeds level of care Transfer Progress Notes Dr. Isaca Transfer Time: 15:55 Transfer Facility: [facility] Method of Transfer: EMS Departure-Patient Inst. Referrals: JOVANNY GRANADOS MD (PCP/Family) Primary Care Physician DIAZ MAHONEY MD Sep 08, 2019 14:20
--- NOTE | 2019-09-08 14:33 | Diagnostic Imaging Report ---
INDICATION: Cough. TIME OF EXAM: 1:59 PM Correlation is made with prior chest 08/22/2019. FINDINGS: Right chest wall port has tip overlying the SVC. The heart is enlarged but stable. Mid and upper lung rick are clear. Areas of bibasilar parenchymal density previously noted are similar. No new infiltrate is identified. There may be some pleural fluid in the left base. There is no pneumothorax. IMPRESSION: Overall stable appearance of the chest when compared with examination from 08/22/2019. Dictated by: Dictated on workstation # [id number]
[2019-09-08] MEDS ORDERED: RT-ALBUTEROL SULF 2.5 MG/3 ML PRE-MIX VIAL ONE (14:45)
[2019-09-08 15:03] LABS: ALBUMIN 3.7 GM/DL (3.2-4.5); BILIRUBIN,TOTAL 0.9 MG/DL (0.1-1.0); CALCIUM 9.2 MG/DL (8.5-10.1); CREATININE SERUM 1.19 MG/DL (0.60-1.30); POTASSIUM 4.4 MMOL/L (3.6-5.0); TOTAL PROTEIN 5.7 GM/DL (6.4-8.2)
[2019-09-08 15:11] LABS: BASOPHILS % (AUTO) 1 % (0-10); EOSINOPHILS % (AUTO) 0 % (0-10); HEMATOCRIT 35 % (40-54); HEMOGLOBIN 11.3 G/DL (13.3-17.7); LYMPHOCYTES # (AUTO) 0.9 X 10^3 (1.0-4.0); LYMPHOCYTES % (AUTO) 23 % (12-44); MEAN CORPUSCULAR HEMOGLOBIN 35 PG (25-34); MEAN CORPUSCULAR HGB CONC 33 G/DL (32-36); MEAN CORPUSCULAR VOLUME 107 FL (80-99); MEAN PLATELET VOLUME 11.8 FL (7.4-10.4); MONOCYTES # (AUTO) 1.1 X 10^3 (0.0-1.0); MONOCYTES % (AUTO) 26 % (0-12); NEUTROPHILS # (AUTO) 2.1 X 10^3 (1.8-7.8); NEUTROPHILS % (AUTO) 50 % (42-75); PLATELET COUNT 99 10^3/uL (130-400); RED CELL DISTRIBUTION WIDTH 15.8 % (10.0-14.5); WHITE BLOOD COUNT 4.2 10^3/uL (4.3-11.0)
[2019-09-08 15:12] LABS: BAND NEUTROPHILS 30 %; LYMPHOCYTES % (MANUAL) 25 %; METAMYELOCYTES % 4 %; MONOCYTES % (MANUAL) 25 %; MYELOCYTES % 4 %; NEUTROPHILS % (MANUAL) 10 %
[2019-09-08 15:13] LABS: BASOPHILS % (MANUAL) 1 %; EOSINOPHILS % (MANUAL) 1 %
[2019-09-08 15:22] LABS: FIBRIN DEGRADATION PRODUCTS 0.56 UG/ML (0.00-0.49); INR 1.2 (0.8-1.4); PROTHROMBIN TIME PATIENT 15.3 SEC (12.2-14.7)
[2019-09-08] MEDS ORDERED: VANCOMYCIN INJECTION 1,000 MG in NS (IVPB) 250 ML IV SCH (15:30)
[2019-09-08] MEDS ORDERED: CEFEPIME INJECTION 2,000 MG in WATER (STERILE) FOR INJECTION 20 ML IV ONE (15:30)
[2019-09-08] MEDS ORDERED: NS (IVPB) 250 ML ONE (15:35)
[2019-09-08] MEDS ORDERED: VANCOMYCIN 1000 MG/VIAL ONE (15:35)
[2019-09-08] MEDS ORDERED: ACETAMINOPHEN 500 MG TAB (TYLENOL) PO ONE (16:15)
[2019-09-08] MEDS ORDERED: fentaNYL INJECTION 100 MCG/2 ML AMP IVP ONE (16:15)
[2019-09-08 16:30] LABS: BACTERIA,URINE NEGATIVE /HPF; BILIRUBIN,URINE NEGATIVE (NEGATIVE); CLARITY,URINE CLEAR; COLOR,URINE YELLOW; GLUCOSE, URINE (UA) NEGATIVE (NEGATIVE); KETONES,URINE NEGATIVE (NEGATIVE); LEUKOCYTE ESTERASE ,URINE NEGATIVE (NEGATIVE); NITRITE,URINE NEGATIVE (NEGATIVE); PH,URINE 5.5 (5-9); PROTEIN,URINE NEGATIVE (NEGATIVE); SQUAMOUS EPITHELIAL CELL,UR 0-2 /HPF; WBC,URINE 0-2 /HPF
[2019-09-08 17:35] VITALS: BP 93/63
[2019-09-08] MEDS ORDERED: RT-ALBUTEROL SULF 2.5 MG/3 ML PRE-MIX VIAL INH SCH (21:00)
== END 2019-09-08 17:43 | disposition short-term general hospital (02) ==
LOC: EDUNIT# 13:55 → ER FS 13:56
DX: J18.9 Pneumonia, unspecified organism (principal); I50.9 Heart failure, unspecified; I48.91 Unspecified atrial fibrillation; I44.7 Left bundle-branch block, unspecified; J44.0 Chronic obstructive pulmonary disease with (acute) lower respiratory infection; I25.10 Atherosclerotic heart disease of native coronary artery without angina pectoris; Z85.6 Personal history of leukemia; Z85.72 Personal history of non-Hodgkin lymphomas; Z79.82 Long term (current) use of aspirin; Z95.5 Presence of coronary angioplasty implant and graft
CPT/HCPCS: 36415; 71045; 80053; 81000; 83605; 83880; 84484; 85007; 85027; 85379; 85610; 85730; 87040; 87070; 87077; 87088; 87185; 87205; 93005; 96361; 96365; 96366; 96375

== ENCOUNTER → 2019-09-18 | Outpatient (CLI) | payer MEDICARE ==
[~2019-09-18] MED LIST changes: -TRAM50TA2 PO; +TRM50T PO
--- NOTE | 2019-09-18 14:40 | Diagnostic Imaging Report ---
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 Study is performed for restaging. Serum blood glucose level at time of injection is 94 mg/dL. Patient was administered 12.8 mCi F-18 FDG intravenously and whole body PET imaging was performed. A noncontrast CT was also performed for attenuation correction and anatomic correlation. Correlation is made with prior whole body PET/CT study from 05/29/2019. There is symmetric activity throughout the brain. Previously noted activity in the region of the hard palate appears to be less prominent on today's study and may be physiologic. No definite hypermetabolic lymph nodes in the neck are identified. The patient does have bilateral pleural effusions which have increased since prior PET/CT study from May. There is some associated bibasilar infiltrates or atelectasis. No definite hypermetabolic foci within the pulmonary parenchyma or within the isabelle or mediastinum is seen. Imaging through the abdomen and pelvis again demonstrates physiologic activity in the gastrointestinal and genitourinary tracts. Previously noted areas of uptake in the region of the vera hepatis is not appreciated on today's study. No hypermetabolic abdominal or pelvic lymphadenopathy is seen. The conventional CT portion of the exam does show some thickening of the left flank abdominal wall musculature with some associated subcutaneous edema. Features are suggestive of intramuscular hematoma of left flank abdominal wall. No free fluid or evidence of hemoperitoneum is seen. Imaging through bilateral lower extremities demonstrates significant improvement. Numerous subcutaneous and deep soft tissue hypermetabolic nodules noted on prior study have resolved. No new hypermetabolic foci are seen. There continues to be uptake in the region of the left 1st MTP joint. This could be on an inflammatory basis. IMPRESSION: 1. There has been a significant improved appearance to the whole-body PET/CT study when compared with exam from 05/29/2019. The areas of uptake involving the vera hepatis have resolved. Numerous subcutaneous and deep soft tissue nodules involving bilateral lower extremities has resolved. 2. Increase in bilateral pleural effusions with associated bibasilar infiltrates or atelectasis. 3. Thickening and heterogeneity involving left abdominal wall flank musculature with associated subcutaneous edema. This is most consistent with intramuscular hematoma. Dictated by: Dictated on workstation # [id number]
== END ==
LOC: RAD 08:50
PROVIDERS: ATTEND Internal Medicine Hematology & Oncology
DX: C85.90 Non-Hodgkin lymphoma, unspecified, unspecified site (principal); L98.9 Disorder of the skin and subcutaneous tissue, unspecified; J90 Pleural effusion, not elsewhere classified; K66.8 Other specified disorders of peritoneum

== ENCOUNTER → 2019-09-24 | Outpatient (CLI) | payer MEDICARE ==
[~2019-09-24] MED LIST changes: -TAMS0.4C98 PO; +TMSL.4C PO
[2019-09-24 10:10] LABS: HEMOGLOBIN 10.2 G/DL (13.3-17.7); MEAN CORPUSCULAR HEMOGLOBIN 34 PG (25-34); WHITE BLOOD COUNT 4.1 10^3/uL (4.3-11.0)
[2019-09-24 10:11] LABS: BASOPHILS % (AUTO) 1 % (0-10); EOSINOPHILS # (AUTO) 0.1 10^3/uL (0.0-0.3); EOSINOPHILS % (AUTO) 3 % (0-10); HEMATOCRIT 32 % (40-54); LYMPHOCYTES # (AUTO) 0.9 X 10^3 (1.0-4.0); LYMPHOCYTES % (AUTO) 23 % (12-44); MEAN CORPUSCULAR HGB CONC 32 G/DL (32-36); MEAN CORPUSCULAR VOLUME 105 FL (80-99); MEAN PLATELET VOLUME 11.4 FL (7.4-10.4); MONOCYTES # (AUTO) 0.6 X 10^3 (0.0-1.0); MONOCYTES % (AUTO) 15 % (0-12); NEUTROPHILS # (AUTO) 2.4 X 10^3 (1.8-7.8); NEUTROPHILS % (AUTO) 58 % (42-75); PLATELET COUNT 98 10^3/uL (130-400); RED CELL DISTRIBUTION WIDTH 16.1 % (10.0-14.5)
[2019-09-24 10:38] LABS: ALBUMIN 2.9 GM/DL (3.2-4.5); BILIRUBIN,TOTAL 0.5 MG/DL (0.1-1.0); CALCIUM 8.2 MG/DL (8.5-10.1); CREATININE SERUM 1.2 MG/DL (0.60-1.30); POTASSIUM 4.1 MMOL/L (3.6-5.0); TOTAL PROTEIN 4.8 GM/DL (6.4-8.2)
== END ==
LOC: LAB FS 09:26
PROVIDERS: ATTEND Internal Medicine Hematology & Oncology
DX: C83.39 Diffuse large B-cell lymphoma, extranodal and solid organ sites (principal)
CPT/HCPCS: 36415; 80053; 83615; 85025

== ENCOUNTER → 2019-10-05 | Outpatient (CLI) | payer MEDICARE ==
[2019-10-05 11:48] LABS: BASOPHILS % (AUTO) 1 % (0-10); EOSINOPHILS % (AUTO) 6 % (0-10); HEMATOCRIT 34 % (40-54); HEMOGLOBIN 11.1 G/DL (13.3-17.7); LYMPHOCYTES # (AUTO) 1.3 X 10^3 (1.0-4.0); LYMPHOCYTES % (AUTO) 33 % (12-44); MEAN CORPUSCULAR HEMOGLOBIN 35 PG (25-34); MEAN CORPUSCULAR HGB CONC 32 G/DL (32-36); MEAN CORPUSCULAR VOLUME 107 FL (80-99); MEAN PLATELET VOLUME 9.8 FL (7.4-10.4); MONOCYTES # (AUTO) 0.8 X 10^3 (0.0-1.0); MONOCYTES % (AUTO) 20 % (0-12); NEUTROPHILS # (AUTO) 1.5 X 10^3 (1.8-7.8); NEUTROPHILS % (AUTO) 38 % (42-75); PLATELET COUNT 123 10^3/uL (130-400); RED CELL DISTRIBUTION WIDTH 17.3 % (10.0-14.5)
[2019-10-05 11:49] LABS: EOSINOPHILS # (AUTO) 0.2 10^3/uL (0.0-0.3)
[2019-10-05 11:57] LABS: ALANINE AMINOTRANSFERASE 9 U/L (0-55); ALBUMIN 3.4 GM/DL (3.2-4.5); ALKALINE PHOSPHATASE 58 U/L (40-136); BILIRUBIN,TOTAL 0.4 MG/DL (0.1-1.0); BUN/CREATININE RATIO 17; CALCIUM 8.6 MG/DL (8.5-10.1); CARBON DIOXIDE 26 MMOL/L (21-32); CHLORIDE 101 MMOL/L (98-107); CREATININE SERUM 1.06 MG/DL (0.60-1.30); GFR ESTIMATED > 60; GLUCOSE 88 MG/DL (70-105); POTASSIUM 4.4 MMOL/L (3.6-5.0); SODIUM 136 MMOL/L (135-145); TOTAL PROTEIN 5.3 GM/DL (6.4-8.2)
--- NOTE | 2019-10-05 12:17 | Diagnostic Imaging Report ---
EXAMINATION: Left foot at 11:26 a.m. INDICATION: Foot pain. TECHNIQUE: Three views were obtained. COMPARISON: There are no prior studies available for comparison. FINDINGS: There is severe deformity and bony overgrowth of the first metatarsophalangeal joint. This finding may well be due to advanced degenerative disease alone. There is no evidence for bony destruction to indicate osteomyelitis. However if clinical concern regarding osteomyelitis persists, then MRI would be recommended for further study. There does appear to be generalized soft tissue edema in this area. No other fracture or acute bony abnormality is appreciated. The Lisfranc joint seems maintained. There is a prominent calcaneal spur. IMPRESSION: 1. There is severe deformity and bony overgrowth of the first metatarsophalangeal joint. This finding may well be due to degenerative disease alone. Recommendations, as above. 2. There is no acute bony abnormality noted, otherwise. Dictated by: Dictated on workstation # [id number]
[2019-10-05 14:06] LABS: URIC ACID 8.2 MG/DL (2.6-7.2)
== END ==
LOC: LAB FS 11:16
PROVIDERS: ATTEND Nurse Practitioner Family
DX: M79.675 Pain in left toe(s) (principal); M79.89 Other specified soft tissue disorders; M21.6X2 Other acquired deformities of left foot
CPT/HCPCS: 36415; 73630; 80053; 83735; 84550; 85025

== ENCOUNTER → 2019-10-26 | Outpatient (CLI) | payer MEDICARE ==
[2019-10-26 14:31] LABS: HEMATOCRIT 34 % (40-54); HEMOGLOBIN 11.5 G/DL (13.3-17.7); LYMPHOCYTES % (AUTO) 31 % (12-44); MEAN CORPUSCULAR HEMOGLOBIN 35 PG (25-34); MEAN CORPUSCULAR HGB CONC 34 G/DL (32-36); MEAN CORPUSCULAR VOLUME 104 FL (80-99); NEUTROPHILS % (AUTO) 51 % (42-75); PLATELET COUNT 65 10^3/uL (130-400); RED CELL DISTRIBUTION WIDTH 16.4 % (10.0-14.5); WHITE BLOOD COUNT 3.3 10^3/uL (4.3-11.0)
[2019-10-26 14:32] LABS: BASOPHILS % (AUTO) 1 % (0-10); EOSINOPHILS % (AUTO) 0 % (0-10); MONOCYTES # (AUTO) 0.5 X 10^3 (0.0-1.0); MONOCYTES % (AUTO) 17 % (0-12); NEUTROPHILS # (AUTO) 1.6 X 10^3 (1.8-7.8)
[2019-10-26 14:52] LABS: BAND NEUTROPHILS 11 %; BASOPHILS % (MANUAL) 0 %; EOSINOPHILS % (MANUAL) 1 %; LYMPHOCYTES % (MANUAL) 39 %; MONOCYTES % (MANUAL) 14 %; NEUTROPHILS % (MANUAL) 35 %
[2019-10-26 14:53] LABS: ANISOCYTOSIS SLIGHT; POIKILOCYTOSIS SLIGHT
[2019-10-26 14:58] LABS: CHLORIDE 99 MMOL/L (98-107); POTASSIUM 4.1 MMOL/L (3.6-5.0); SODIUM 138 MMOL/L (135-145)
--- NOTE | 2019-10-26 14:58 | Diagnostic Imaging Report ---
INDICATION: Cough, shortness of breath. COMPARISON: Exam compared with chest x-ray 09/08/2019. FINDINGS: While the heart is mildly enlarged, it is decreased in size from prior. There may be some component of interstitial edema present; however, this is also significantly improved from prior. Small amounts of pleural fluid greater left also stable or decreased. Scattered calcified granulomatous disease. Right IJ catheter stable. IMPRESSION: Improvements in likely failure pattern and pleural fluid when compared to the prior. No focal alveolar consolidation, pneumothorax, or adverse change from previous. Dictated by: Dictated on workstation # [id number]
[2019-10-26 14:59] LABS: ALANINE AMINOTRANSFERASE 11 U/L (0-55); ALBUMIN 3.4 GM/DL (3.2-4.5); ALKALINE PHOSPHATASE 61 U/L (40-136); BILIRUBIN,TOTAL 0.3 MG/DL (0.1-1.0); BUN/CREATININE RATIO 25; CALCIUM 8.6 MG/DL (8.5-10.1); CARBON DIOXIDE 26 MMOL/L (21-32); CREATININE SERUM 1.01 MG/DL (0.60-1.30); GFR ESTIMATED > 60; GLUCOSE 93 MG/DL (70-105); TOTAL PROTEIN 5.7 GM/DL (6.4-8.2)
== END ==
LOC: LAB FS 14:11
PROVIDERS: ATTEND Nurse Practitioner
DX: I50.23 Acute on chronic systolic (congestive) heart failure (principal)
CPT/HCPCS: 36415; 71046; 80053; 83880; 85007; 85027